=== PATIENT | male | born 1950 | race Caucasian/White ===

== ENCOUNTER 2022-11-29 12:36 | Emergency (ER) | payer MEDICARE, SELFPAY ==
[2022-11-29 12:45] VITALS: BP 172/79; PULSE 91; RESP 18; TEMP 37.1; O2SAT 98; BMI 27.3
--- NOTE | 2022-11-29 13:52 | CRLHL7_ITS ---
For Patients: As a result of the Cures Act, medical imaging exams and procedure reports are released immediately into your electronic medical record. You may view this report before your referring provider. If you have questions, please contact your health care provider. INDICATION: Headache. TECHNIQUE: CT head without contrast. COMPARISON: MRI, November 26, 2020. FINDINGS: CSF spaces: Mild parenchymal volume loss. Brain parenchyma and extra-axial spaces: Mild to moderate chronic white matter ischemic disease. The chris-white differentiation is normal. No sign of mass, hemorrhage, or midline shift. No extra-axial fluid collection. Skull base and calvarium: Moderate right maxillary sinus mucoperiosteal thickening. Otherwise, the visualized paranasal sinuses and mastoid air cells demonstrate no acute or significant findings. The visualized orbits are grossly unremarkable. No skull fractures. IMPRESSION: No acute intracranial abnormality. Moderate right maxillary sinus mucoperiosteal thickening which could suggest sinusitis in the appropriate clinical setting. Please note that all CT scans at this facility use dose modulation, iterative reconstruction, and/or weight-based dosing when appropriate to reduce radiation dose to as low as reasonably achievable. Dictated by Ayan Correa MD @ 11/29/2022 3:22:15 PM (Electronically Signed)
[2022-11-29] MEDS: 0.9 % SODIUM CHLORIDE 1000 ml 1,000 ML IV (14:45)
[2022-11-29] MEDS: KETOROLAC 30 MG/ML inj IVP (14:49)
[2022-11-29] MEDS: ONDANSETRON 2 MG/ML inj 4 MG IVP (14:50)
[2022-11-29] MEDS: diphenhydrAMINE 50 MG/ML inj 25 MG IVP (14:51)
[2022-11-29 15:14] LABS: Basophils Percent Auto 0.1 % (0.0-3.0); Eosinophils Percent Auto 0.3 % (0.0-7.0); Hematocrit 44.5 % (37.0-53.0); Hemoglobin* 14.8 gm/dL (13.5-17.5); Immature Granulocytes Pct Auto 0.3 %; Mean Corpuscular HGB Conc 33 gm/dL (32-36); Mean Corpuscular Hemoglobin 30 pg (26-34); Mean Corpuscular Volume 91 fL (80-100); Monocytes Percent Auto 9.1 % (0.0-11.0); Neutrophils Percent Auto 85.2 % (42.0-72.0); Platelet Count* 219 K/uL (140-440); RDW Coefficient of Variation % 13.1 % (11.5-15.5); Red Blood Count 4.91 m/uL (4.30-5.90); White Blood Count* 14.75 K/uL (4.50-11.00)
--- NOTE | 2022-11-29 15:23 | ED_ITS ---
HPI - Headache General Date Seen: 11/29/22 Chief Complaint: Headache/Migraine Stated Complaint: Headache Time Seen by Provider: 11/29/22 14:22 Source: patient and family Mode of arrival: ambulatory Limitations: no limitations History of Present Illness HPI Narrative: Patient is a 68 for old gentleman who presents here with a right-sided headache he describes the headache between behind his right eye it over his right mastoid region. He has a history of migraines but this is not all his migraines as they occur on the left side of his head, this is a bad headache, that is come on since he woke up today he did notice it slightly yesterday however, he denies any fevers chills, there is no history of any vomiting but he does feel nauseous, he took some nasal spray at home, which she normally takes for allergies. Presents here. For help with this. 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 He has had no discharge out of his ears when he has chronic tinnitus. MD elicited complaint: headache Pertinent past history: migraines Onset (ago): day(s) Onset description: gradually Location: right, facial, retro-orbital and parietal Severity: severe Quality & Timing: aching, throbbing and squeezing Exacerbating factors: none Relieving factors: nothing Associated symptoms: none Related Data Home Medications Medication Instructions Recorded Confirmed azelastine 137 mcg (0.1 %) nasal intranasal 11/29/22 spray aerosol fluticasone propionate 50 1 spray intranasal BID 11/29/22 11/29/22 mcg/actuation nasal spray,suspension Allergies Allergy/AdvReac Type Severity Reaction Status Date / Time Iodinated Contrast Media Allergy Intermediate Chest Pain Verified 11/29/22 12:45 Sulfa (Sulfonamide Allergy Intermediate Rash Verified 11/29/22 12:45 Antibiotics) Review of Systems Status of ROS: Reports: 10 or more systems reviewed and unremarkable except as noted in History and below [facility] Social History Smoking Status: Never smoker Do you use any of these nicotine containing products: None Second hand tobacco smoke exposure: Yes How often do you have a drink containing alcohol: 2-4 times a month How many standard drinks containing alcohol do you have on a typical day: 1 or 2 How often do you have six or more drinks on one occasion: Never AUDIT-C Alcohol total score: 2 Non-prescribed substance use: denies use service: No Exam Narrative: Exam Narrative: Patient is seen in room 3, he appears to be in no distress he has not photophobic, he is tender but not fluctuant tender behind his right mastoid, he has mild tenderness when palpated around the right ear, there is no fluctuance or redness noted, jaw opening is normal, tenderness over the right maxilla is notable. 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 Skin reveals no petechiae rashes. Const: Vital Signs, click to edit/add: Vital Signs - 24 hr 11/29/22 12:45 11/29/22 16:46 Temperature 98.7 F 100.8 F H Pulse Rate [Pulse Oximeter] 91 101 H Respiratory Rate 18 18 Blood Pressure [Le ft Upper Arm] 172/79 H 132/76 Pulse Oximetry 98 94 Oxygen Delivery Me thod Room Air Room Air Documenting provider has reviewed patient's vital signs: yes Course Course Hospital Course: Spoke to patient is white count is elevated at 14, CT shows right-sided sinusitis of the maxillary but also some opacification of the mastoid on the right side. This is all consistent with a right-sided disease, he was given Zosyn x1 we placed on Augmentin, I discussed the case with from ENT, he will see the patient tomorrow, in clinic and follow-up with him. Pain medication as directed, neurologically intact and stable, not vomiting I think can go home at this point. Signs symptoms of worsening discussed, to follow up with these occur. Vital Signs Vital signs: Initial Vital Signs Temperature 98.7 F 11/29/22 12:45 Temperature Source Temporal Artery Scan 11/29/22 12:45 Pulse Rate 91 11/29/22 12:45 Respiratory Rate 18 11/29/22 12:45 Blood Pressure 172/79 H 11/29/22 12:45 Blood Pressure Mean 110 11/29/22 12:45 Pulse Oximetry 98 11/29/22 12:45 Oxygen Delivery Method 11/29/22 12:45 Vital Signs Temperature 98.7 F 11/29/22 12:45 Pulse Rate 91 11/29/22 12:45 Respiratory Rate 18 11/29/22 12:45 Blood Pressure 172/79 H 11/29/22 12:45 Pulse Oximetry 98 11/29/22 12:45 Oxygen Delivery Method 11/29/22 12:45 Temperature 100.8 F H 11/29/22 16:46 Pulse Rate 101 H 11/29/22 16:46 Respiratory Rate 18 11/29/22 16:46 Blood Pressure 132/76 11/29/22 16:46 Pulse Oximetry 94 11/29/22 16:46 Oxygen Delivery Method 11/29/22 16:46 MDM - Headache MDM Narrative Medical decision making narrative: Life-threatening differential diagnosis include subarachnoid hemorrhage, meningitis, encephalitis, carbon monoxide poisoning, and intracerebral hemorrhage. Other differential diagnosis include but not limited to migraine, cluster headache, tension headache, [employer] vasculitis, mass lesion, temporal arteritis, click acute closed angle glaucoma, septal and trigeminal neuralgia, sinusitis, closed head injury, and stroke Medical Records Attestation: I reviewed the patient's medical records. Lab Data Attestation: I reviewed the patient's lab results. Labs: Lab Results 11/29/22 11/29/22 11/29/22 Range/Units 15:00 15:00 15:00 WBC 14.75 H (4.50-11.00) K/uL RBC 4.91 (4.30-5.90) m/uL Hgb 14.8 (13.5-17.5) gm/dL Hct 44.5 (37.0-53.0) % MCV 91 (80-100) fL MCH 30 (26-34) pg MCHC 33 (32-36) gm/dL RDW Coeff of Macie 13.1 (11.5-15.5) % Plt Count 219 (140-440) K/uL Neut % (Auto) 85.2 H (42.0-72.0) % Lymph % (Auto) 5.0 L (20-44) % Tripp % (Auto) 9.1 (0.0-11.0) % Eos % (Auto) 0.3 (0.0-7.0) % Baso % (Auto) 0.1 (0.0-3.0) % Neut # (Auto) 12.60 H (1.7-7.0) K/uL Lymph # (Auto) 0.70 L (0.90-2.90) K/uL Tripp # (Auto) 1.30 H (0.00-0.90) K/UL Eos # (Auto) 0.00 (0.00-0.50) K/uL Baso # (Auto) 0.00 (0.00-0.30) K/uL Sodium 137 (135-149) mmol/L Potassium 4.0 (3.6-5.1) mmol/L Chloride 103 (96-114) mmol/L Carbon Dioxide 27 (20-32) mmol/L BUN 13 (7-30) mg/dL Creatinine 0.7 (0.5-1.5) mg/dL Estimated Creat Clear 66.92 Estimated GFR 97 ml/min Glucose 115 (60-115) mg/dL Calcium 9.3 (8.4-10.6) mg/dL C-Reactive Protein 4.9 H (0.5-1.0) mg/dL Procalcitonin 0.06 (<0.50) ng/mL Imaging Data CT scan - head: Attestation: I have reviewed the pertinent imaging results. My impression: CT scan of the head was ordered before I saw the patient per triage. This shows a right maxillary fluid level, moderate, right sphenoid fluid levels, and some mild fluid in his right mastoid. I will await the radiology will read, but I think this is the what is causing his discomfort. Radiologist's impression: Patient: CHARISMA TOLEDO Facility:?[facility] Patient ID:?[id number] Site Patient ID:?[id number]. Site :?[id number] Study:?CT Head W/O-11/29/2022 2:16:39 PM Ordering Physician:?Caden Angeles Final Report: INDICATION: Headache. TECHNIQUE: CT head without contrast. COMPARISON: MRI, November 26, 2020. FINDINGS: CSF spaces: Mild parenchymal volume loss. Brain parenchyma and extra-axial spaces: Mild to moderate chronic white matter ischemic disease. The chris-white differentiation is normal. No sign of mass, hemorrhage, or midline shift. No extra-axial fluid collection. Skull base and calvarium: Moderate right maxillary sinus mucoperiosteal thickening. Otherwise, the visualized paranasal sinuses and mastoid air cells demonstrate no acute or significant findings. The visualized orbits are grossly unremarkable. No skull fractures. IMPRESSION: No acute intracranial abnormality. Moderate right maxillary sinus mucoperiosteal thickening which could suggest sinusitis in the appropriate clinical setting. Please note that all CT scans at this facility use dose modulation, iterative reconstruction, and/or weight-based dosing when appropriate to reduce radiation dose to as low as reasonably achievable. Dictated by Ayan Correa MD @ 11/29/2022 3:22:15 PM (Electronic Signature) Discharge Plan Discharge Clinical Impression: Mastoiditis of right side, Headache, Sinusitis Patient Disposition: Home w/ Parent or Adult Condition: Improved Instructions: Acute Headache (DC), Mastoiditis (ED) Additional Instructions: Home rest follow-up tomorrow morning at 10:00 a.m. at the [facility] with Dr. Adan Santos, take her antibiotics as directed 1st dose tonight, return if increasing fevers chills nausea vomiting or headaches. Prescriptions: No Action azelastine 137 mcg (0.1 %) aerosol,spray INTRANASAL Label Comments: [NO ORIGINAL SIG] fluticasone propionate 50 mcg/actuation spray,suspension 1 spray INTRANASAL BID Follow Up/Referrals: Provider,Not a Local [Primary Care Provider] - Devante Llamas MD [Staff Physician] - Stand Alone [facility]
[2022-11-29 15:28] LABS: Chloride* 103 mmol/L (96-114); Sodium* 137 mmol/L (135-149)
[2022-11-29 15:30] LABS: Creatinine* 0.7 mg/dL (0.5-1.5); Est. Creatinine Clearance* 66.92; Estimated Glomerular Filt Rate 97 ml/min
[2022-11-29] MEDS: METOCLOPRAMIDE HCL 10 MG in 0.9 % SODIUM CHLORIDE 100 ml 100 ML 306 MG IVPB (15:30)
[2022-11-29 15:31] LABS: Blood Urea Nitrogen* 13 mg/dL (7-30); Calcium* 9.3 mg/dL (8.4-10.6); Carbon Dioxide* 27 mmol/L (20-32); Glucose* 115 mg/dL (60-115)
[2022-11-29 15:33] LABS: Slide Review Reflex No
[2022-11-29 15:35] LABS: C Reactive Protein* 4.9 mg/dL (0.5-1.0)
[2022-11-29 15:48] LABS: Procalcitonin* 0.06 ng/mL (<0.50)
[2022-11-29] MEDS: PIPERACILLIN/TAZOBACTAM 3.375 GM in 0.9 % SODIUM CHLORIDE Mini-bag 100 ML IVPB (16:44)
[2022-11-29 16:46] VITALS: BP 132/76; PULSE 101; RESP 18; TEMP 38.2; O2SAT 94
[2022-11-29 17:04] VITALS: TEMP 38.2
[2022-11-29] MEDS: IBUPROFEN 200 MG TABLET 600 MG PO (17:04)
== END 2022-11-29 18:08 | disposition home or self-care (01) ==
PROVIDERS: Emergency Provider Family Medicine
DX: H70.91 Unspecified mastoiditis, right ear (principal); R51.9 Headache, unspecified; J32.9 Chronic sinusitis, unspecified
CPT/HCPCS: 36415; 70450; 80048; 84145; 85025; 86140; 87040; 96365; 96367; 96375; 99284; A9270; J1200; J1885; J2405; J2543; J2765; J7030

== ENCOUNTER 2022-11-30 10:40 | Outpatient (CLI) | payer MEDICARE, SELFPAY | END 2022-11-30 10:41 | disposition home or self-care (01) | PROVIDERS: Visit Provider Otolaryngology | DX: R51.9 Headache, unspecified (principal); I48.91 Unspecified atrial fibrillation | CPT/HCPCS: 83516; 86140; 86255 ==

== ENCOUNTER 2022-11-30 11:08 | Outpatient (CLI) | payer MEDICARE, SELFPAY ==
--- NOTE | 2022-11-30 11:21 | CRLHL7_ITS ---
For Patients: As a result of the Century Cures Act, medical imaging exams and procedure reports are released immediately into your electronic medical record. You may view this report before your referring provider. If you have questions, please contact your health care provider. Indication: Right otorrhea. Technique: CT of the temporal bones performed without IV contrast. Comparison: CT head 11/29/2022. Findings: RIGHT: Moderate 2 severe opacification of the external auditory canal near the tympanic membrane. No osseous erosion. There is interval development of moderate to severe opacification of the mastoid air cells and middle ear which has significantly progressed since prior CT 11/29/2022. The ossicles appear intact without erosion identified. Scutum appears sharp. The inner ear structures including the cochlea, semicircular canals, vestibule and vestibular aqueduct appear unremarkable. Osseous IAC is intact. The path of the facial nerve canal is preserved. LEFT: The external auditory canal is patent. The tympanic membrane is not thickened. The mesotympanum is well aerated. The scutum is sharp. Ossicles are intact without evidence of erosion. The epitympanum and mastoid air cells appear clear. The inner ear structures including the cochlea, semicircular canals, vestibule and vestibular aqueduct appear unremarkable. Osseous IAC is intact. The path of the facial nerve canal is preserved. OTHER: Moderate thickening of the right maxillary and ethmoid sinuses. There is chronic mucoperiosteal reaction. Orbits appear intact. Impression: Right temporal bone: 1. Interval development of moderate to severe external auditory canal, mastoid and middle ear opacification. No erosions. Findings could represent otomastoiditis and otitis externa. Correlate with otoscopic examination. Left temporal bone: 1. Unremarkable. Other: 1. Moderate paranasal sinus mucosal disease. Please note that all CT scans at this facility use dose modulation, iterative reconstruction, and/or weight-based dosing when appropriate to reduce radiation dose to as low as reasonably achievable. Dictated by Ko Angel MD @ 11/30/2022 2:14:08 PM (Electronically Signed)
== END 2022-11-30 11:09 | disposition home or self-care (01) ==
LOC: CT 11:08
PROVIDERS: Visit Provider Family Medicine
DX: H92.11 Otorrhea, right ear (principal); J32.9 Chronic sinusitis, unspecified
CPT/HCPCS: 70480

== ENCOUNTER 2022-11-30 18:20 | Inpatient (IN) | payer MEDICARE, SELFPAY ==
[2022-11-30 18:29] VITALS: BP 147/79; PULSE 131; RESP 20; TEMP 37.2; O2SAT 97; BMI 27.3
--- NOTE | 2022-11-30 18:43 | CRLHL7_ITS ---
For Patients: As a result of the Cures Act, medical imaging exams and procedure reports are released immediately into your electronic medical record. You may view this report before your referring provider. If you have questions, please contact your health care provider. INDICATION: Fever. TECHNIQUE: Chest 1 view. COMPARISON: None. FINDINGS: No focal consolidation, pleural effusion, or pneumothorax. Mild bibasilar atelectasis. Heart size upper limits of normal. Normal pulmonary vascularity. Tortuous aorta. Degenerative changes of the acromioclavicular joints. IMPRESSION: No acute cardiopulmonary findings. Dictated by Carol Markham MD @ 11/30/2022 7:55:28 PM (Electronically Signed)
[2022-11-30 18:50] LABS: Basophils Percent Auto 0.1 % (0.0-3.0); Eosinophils Percent Auto 0.6 % (0.0-7.0); Hematocrit 43.7 % (37.0-53.0); Hemoglobin* 14.5 gm/dL (13.5-17.5); Immature Granulocytes Pct Auto 0.2 %; Lymphocytes Percent Auto 8.5 % (20-44); Mean Corpuscular HGB Conc 33 gm/dL (32-36); Mean Corpuscular Hemoglobin 30 pg (26-34); Mean Corpuscular Volume 91 fL (80-100); Monocytes Percent Auto 8.6 % (0.0-11.0); Platelet Count* 225 K/uL (140-440); RDW Coefficient of Variation % 13.3 % (11.5-15.5); Red Blood Count 4.79 m/uL (4.30-5.90)
--- NOTE | 2022-11-30 18:50 | ED.GENADULT ---
HPI - General Adult General Date Seen: 11/30/22 Chief complaint: Ear/Nose/Throat Problem Stated complaint: Nausea Dehydration Time Seen by Provider: 11/30/22 18:21 Source: patient Mode of arrival: ambulatory Limitations: no limitations History of Present Illness HPI narrative: Patient is a 72-year-old male who has been having sinus symptoms for few weeks. He said it is not unusual for him to have sinus infections and he often has to do a couple of rounds of antibiotics. He was here yesterday and had a headache at that time, had a CT of the which did show sinusitis. He was started on antibiotics and followed up with ENT today with a concern about possible mastoiditis. His labs yesterday showed a mildly elevated white blood cell count at 14,000, CRP was up as well. In clinic today, his white blood cell count was slightly worse, CRP was slightly worse, sed rate was elevated at 48. He had a CT of the auditory canals today after leaving clinic, this is read by Radiology as follows: Impression: Right temporal bone: 1. Interval development of moderate to severe external auditory canal, mastoid and middle ear opacification. No erosions. Findings could represent otomastoiditis and otitis externa. Correlate with otoscopic examination. Left temporal bone: 1. Unremarkable. Other: 1. Moderate paranasal sinus mucosal disease. Please note that all CT scans at this facility use dose modulation, iterative reconstruction, and/or weight-based dosing when appropriate to reduce radiation dose to as low as reasonably achievable. As the afternoon has gone on, he says he has developed significant nausea and vomiting, he cannot keep anything down. He has had a couple of doses of the Augmentin. He has had Augmentin before without any difficulties. He says he has not been able to check his temperature at home but he feels like he has maybe had a fever. He says he has been shaky but does not think that is due to shaking chills. He has not had any diarrhea. He has not had any shortness of breath or cough. He is taking some prednisone that was prescribed in clinic. He does not have a history of diabetes or any other immunosuppressive medical history. Related Data Home Medications Medication Instructions Recorded Confirmed azelastine 137 mcg (0.1 %) nasal intranasal 11/29/22 11/30/22 spray aerosol fluticasone propionate 50 1 spray intranasal BID 11/29/22 11/30/22 mcg/actuation nasal spray,suspension Previous Rx's Medication Instructions Recorded amoxicillin 875 mg-potassium 1 tab PO BID 10 days #20 tabs 11/30/22 clavulanate 125 mg tablet ciprofloxacin 0.3 %-dexamethasone 6 drp otic (ear) QID 7 days #7.5 mL 11/30/22 0.1 % ear drops,suspension (Ciprodex) prednisone 10 mg tablet 20 mg PO BID 7 days #28 tabs 11/30/22 Allergies Allergy/AdvReac Type Severity Reaction Status Date / Time Iodinated Contrast Media Allergy Intermediate Chest Pain Verified 11/30/22 10:21 Sulfa (Sulfonamide Allergy Intermediate Rash Verified 11/30/22 10:21 Antibiotics) Review of Systems Status of ROS: Reports: 10 or more systems reviewed and unremarkable except as noted in History and below [facility] Social History Smoking Status: Never smoker Do you use any of these nicotine containing products: None Second hand tobacco smoke exposure: Yes How often do you have a drink containing alcohol: 2-4 times a month How many standard drinks containing alcohol do you have on a typical day: 1 or 2 How often do you have six or more drinks on one occasion: Never AUDIT-C Alcohol total score: 2 Non-prescribed substance use: denies use service: No Exam Narrative: Exam Narrative: Vital signs as noted above. In general, an alert, nontoxic male, looks fatigued. Head: Normocephalic, atraumatic. Eyes: Pupils are equal reactive. Extraocular movements are full. Conjunctivae are normal. ENT: Mucous membranes are moist. Throat is normal. He has a Kleenex in the right ear due to ongoing drainage. Drainage is serosanguineous. He does not have any significant erythema or tenderness behind the pinna over the mastoid air cells, pin itself seems mildly erythematous but without significant swelling or tenderness. Neck: Supple without lymphadenopathy. No stridor. Heart: Regular rate and rhythm with some ectopy, no significant murmur. Lungs: Clear bilaterally. No increased work of breathing, crackles or wheezes. Abdomen: Soft and nontender. No organomegaly. Extremities: Well perfused. No edema. No calf tenderness. Pulses intact. Neurologic: Patient is alert and oriented to person and place. Speech is fluent. Face is symmetric. Moves all extremities equally. Affect: Normal. Skin: Warm and dry. Well perfused. Const: Vital Signs, click to edit/add: Vital Signs - 24 hr 11/30/22 18:29 11/30/22 20:05 11/30/22 20:00 Temperature 98.9 F Pulse Rate [Pulse Oximeter] 131 H 68 Respiratory Rate 20 18 Blood Pressure [Le ft Upper Arm] 147/79 H 148/79 H 128/78 Pulse Oximetry 97 98 Oxygen Delivery Me thod Room Air Room Air Documenting provider has reviewed patient's vital signs: yes Course Course Hospital Course: Plan at this time is to place an IV, give some fluids and Zofran. Denies the need for anything for pain right now. I am going to repeat some labs and see how those look. He is markedly tachycardic, blood pressure is reasonable. He is afebrile here, however with tachycardia, vomiting, elevated white blood cell count and inflammatory markers, failure to improve on antibiotics, my suspicion is that he will require admission to the hospital for at a minimum management of symptoms, possible developing sepsis. Reevaluation(s) Reevaluation #1: On my initial evaluation, patient continued to be tachycardic although I see an repeat vital signs he had a pulse of 68, so perhaps he converted spontaneously from rapid atrial fibrillation. EKG did show atrial fibrillation with a rapid ventricular rate of 131 beats per minute. He was otherwise hemodynamically stable with blood pressure in the 140s. He did develop some headache here and continued to have nausea after the Zofran, so I gave him Reglan and Toradol. I did blood cultures as well as a culture from the fluid from his right ear. His labs are notable for ongoing elevation of his white blood cell count 14. His CRP is more elevated at 19. A repeat procalcitonin remains reassuring at 0.13. Urinalysis shows 2+ ketones, 1+ protein, otherwise unremarkable. COVID is negative. I have reviewed his records including imaging from earlier today. Overall, labs are relatively reassuring from the standpoint of sepsis although his white blood cell count is elevated. Nonetheless, he does not shows considerable improvement at home to his antibiotics, labs are somewhat stagnant, and from a symptomatic standpoint he is are acutely worsening. I do think he would benefit from admission for IV antibiotics and symptomatic control. In addition, at the time of my admission he was in rapid AFib, which is a new diagnosis for him. This may have resolved spontaneously however. I discussed his care with Dr. Vazquez in as well. He recommended spectrum antibiotics as well as steroids, patient was started on prednisone earlier today, and is available for further consultation as needed. Vital Signs Vital signs: Initial Vital Signs Temperature 98.9 F 11/30/22 18:29 Temperature Source Temporal Artery Scan 11/30/22 18:29 Pulse Rate 131 H 11/30/22 18:29 Pulse Rhythm 11/30/22 18:29 Respiratory Rate 20 11/30/22 18:29 Blood Pressure 147/79 H 11/30/22 18:29 Blood Pressure Mean 101 11/30/22 18:29 Blood Pressure Position Sitting 11/30/22 18:29 Pulse Oximetry 97 11/30/22 18:29 Oxygen Delivery Method 11/30/22 18:29 Vital Signs Temperature 98.9 F 11/30/22 18:29 Pulse Rate 131 H 11/30/22 18:29 Respiratory Rate 20 11/30/22 18:29 Blood Pressure 147/79 H 11/30/22 18:29 Pulse Oximetry 97 11/30/22 18:29 Oxygen Delivery Method 11/30/22 18:29 Temperature 98.9 F 11/30/22 18:29 Pulse Rate 68 11/30/22 20:00 Respiratory Rate 18 11/30/22 20:00 Blood Pressure 148/79 H 11/30/22 20:05 Pulse Oximetry 98 11/30/22 20:00 Oxygen Delivery Method 11/30/22 20:00 Medical Decision Making Lab Data Labs: Lab Results 11/30/22 11/30/22 11/30/22 Range/Units 18:33 18:33 18:33 WBC 14.00 H (4.50-11.00) K/uL RBC 4.79 (4.30-5.90) m/uL Hgb 14.5 (13.5-17.5) gm/dL Hct 43.7 (37.0-53.0) % MCV 91 (80-100) fL MCH 30 (26-34) pg MCHC 33 (32-36) gm/dL RDW Coeff of Macie 13.3 (11.5-15.5) % Plt Count 225 (140-440) K/uL Neut % (Auto) 82.0 H (42.0-72.0) % Lymph % (Auto) 8.5 L (20-44) % [place] % (Auto) 8.6 (0.0-11.0) % Eos % (Auto) 0.6 (0.0-7.0) % Baso % (Auto) 0.1 (0.0-3.0) % Neut # (Auto) 11.50 H (1.7-7.0) K/uL Lymph # (Auto) 1.20 (0.90-2.90) K/uL [place] # (Auto) 1.20 H (0.00-0.90) K/UL Eos # (Auto) 0.10 (0.00-0.50) K/uL Baso # (Auto) 0.00 (0.00-0.30) K/uL Lactate 1.2 (0.5-1.9) mmol/L Total Bilirubin 0.7 (0.1-1.5) mg/dL Direct Bilirubin 0.1 (0.0-0.5) mg/dL AST 41 H (12-35) U/L ALT 25 (4-50) U/L Alkaline Phosphatase 78 (40-150) U/L C-Reactive Protein 19.0 H (0.5-1.0) mg/dL Total Protein 7.3 (6.0-8.3) g/dL Albumin 4.1 (3.3-5.0) g/dL Procalcitonin 0.13 (<0.50) ng/mL Urine Color (Yellow) Urine Appearance (Clear) Urine pH (5.0-8.5) Ur Specific [place] (1.000-1.030) Urine Protein (Negative) Urine Glucose (UA) (Negative) Urine Ketones (Negative) Urine Blood (Negative) Urine Nitrite (Negative) Urine Bilirubin (Negative) Urine Urobilinogen (0.2-1.0) Ur Leukocyte Esterase (Negative) Urine RBC (0-2) Urine WBC (0-5) Ur Squamous Epith Cells (None-Few) Urine Bacteria (None) SARS-CoV-2 (PCR) (Negative) 03/15/23 03/15/23 Range/Units 18:54 19:44 WBC (4.50-11.00) K/uL RBC (4.30-5.90) m/uL Hgb (13.5-17.5) gm/dL Hct (37.0-53.0) % MCV (80-100) fL MCH (26-34) pg MCHC (32-36) gm/dL RDW Coeff of Macie (11.5-15.5) % Plt Count (140-440) K/uL Neut % (Auto) (42.0-72.0) % Lymph % (Auto) (20-44) % [place] % (Auto) (0.0-11.0) % Eos % (Auto) (0.0-7.0) % Baso % (Auto) (0.0-3.0) % Neut # (Auto) (1.7-7.0) K/uL Lymph # (Auto) (0.90-2.90) K/uL [place] # (Auto) (0.00-0.90) K/UL Eos # (Auto) (0.00-0.50) K/uL Baso # (Auto) (0.00-0.30) K/uL Lactate (0.5-1.9) mmol/L Total Bilirubin (0.1-1.5) mg/dL Direct Bilirubin (0.0-0.5) mg/dL AST (12-35) U/L ALT (4-50) U/L Alkaline Phosphatase (40-150) U/L C-Reactive Protein (0.5-1.0) mg/dL Total Protein (6.0-8.3) g/dL Albumin (3.3-5.0) g/dL Procalcitonin (<0.50) ng/mL Urine Color Dark yellow (Yellow) Urine Appearance Clear (Clear) Urine pH 6.0 (5.0-8.5) Ur Specific [place] 1.025 (1.000-1.030) Urine Protein 1+ A (Negative) Urine Glucose (UA) Negative (Negative) Urine Ketones 2+ A (Negative) Urine Blood Negative (Negative) Urine Nitrite Negative (Negative) Urine Bilirubin Negative (Negative) Urine Urobilinogen 0.2 (0.2-1.0) Ur Leukocyte Esterase Negative (Negative) Urine RBC 0-2 (0-2) Urine WBC 0-2 (0-5) Ur Squamous Epith Cells Few (None-Few) Urine Bacteria None (None) SARS-CoV-2 (PCR) Negative SARS-CoV-2 (Negative) Discharge Plan Discharge Patient Disposition: Admitted As Inpatient
[2022-11-30 18:56] LABS: Slide Review Reflex No
[2022-11-30] MEDS: ONDANSETRON 2 MG/ML inj 4 MG IVP (19:15)
[2022-11-30] MEDS: 0.9 % SODIUM CHLORIDE 1000 ml 1,000 ML IV (19:15)
[2022-11-30 19:18] LABS: Lactate* 1.2 mmol/L (0.5-1.9)
[2022-11-30 19:21] LABS: Albumin* 4.1 g/dL (3.3-5.0)
[2022-11-30 19:25] LABS: Alanine Aminotransferase* 25 U/L (4-50); Alkaline Phosphatase* 78 U/L (40-150); Aspartate Amino Transferase* 41 U/L (12-35); Bilirubin Direct* 0.1 mg/dL (0.0-0.5); Bilirubin Total* 0.7 mg/dL (0.1-1.5); Total Protein* 7.3 g/dL (6.0-8.3)
[2022-11-30 19:52] LABS: Appearance Urine Clear (Clear); Bilirubin Urine Negative (Negative); Blood Urine Negative (Negative); Color Urine Dark yellow (Yellow); Glucose Urine Negative (Negative); Ketones Urine 2+ (Negative); Leukocyte Esterase Urine Negative (Negative); Nitrite Urine Negative (Negative); Protein Urine 1+ (Negative); Specific Gravity Urine 1.025 (1.000-1.030); Urobilinogen Urine 0.2 (0.2-1.0)
[2022-11-30 19:58] LABS: SARS PCR* Negative SARS-CoV-2 (Negative)
[2022-11-30 20:00] VITALS: BP 128/78; PULSE 68; RESP 18; O2SAT 98
[2022-11-30] MEDS: METOCLOPRAMIDE HCL 10 MG in 0.9 % SODIUM CHLORIDE 100 ml 100 ML 306 MG IVPB (20:02)
[2022-11-30] MEDS: KETOROLAC 15 MG/ML inj IVP (20:02)
[2022-11-30 20:05] VITALS: BP 148/79
[2022-11-30 20:05] LABS: RBC Urine 0-2 (0-2); Squamous Epithelial Cell Urine Few (None-Few); WBC Urine 0-2 (0-5)
[2022-11-30 20:13] VITALS: PULSE 85
[2022-11-30] MEDS: PIPERACILLIN/TAZOBACTAM 3.375 GM in 0.9 % SODIUM CHLORIDE Mini-bag 100 ML IVPB (20:33)
[2022-11-30 20:38] LABS: Procalcitonin* 0.13 ng/mL (<0.50)
[2022-11-30 21:07] VITALS: RESP 16; RESP 18; TEMP 37.2; O2SAT 94; O2SAT 98; BMI 28.2
[2022-11-30] MEDS: SODIUM CHLORIDE 0.9 % (FLUSH) 10 ML SYRINGE 5 ML IVF (21:55)
[2022-11-30] MEDS: 0.9 % SODIUM CHLORIDE 1000 ml 1,000 ML 100 ML IV (21:55)
[2022-11-30 23:00] VITALS: RESP 14; RESP 16; TEMP 37.1; O2SAT 96
--- NOTE | 2022-11-30 23:34 | PM.IMHP1 ---
Hospitalist- H&P: HPI History of Present Illness Date Seen: 12/01/22 Chief complaint: Nausea Dehydration Narrative: Kapil Huizar is a 72 year old male with past medical history of migraine headaches, Astrid presenting for evaluation of headache, dizziness, nausea. The patient was seen in ENT clinic earlier in the day. He was diagnosed with acute sinusitis vs otitis media. He had CT right temporal bone showing Interval development of moderate to severe external auditory canal, mastoid and middle ear opacification. No erosions. Findings could represent otomastoiditis and otitis externa. Correlate with otoscopic examination. The initial plan was to start antibiotic therapy and prednisone. He continued to have a headache and was referred to ED. CXR showed no acute findings. Per patient he had a fever yesterday otherwise denies chest pain, palpitations, sob. He continues to have a headache. In the ED the patient was noted to be in new onset atrial fibrillation. He was started on IVF and zosyn and admitted for further evaluation. CT Impression: Right temporal bone: 1. Interval development of moderate to severe external auditory canal, mastoid and middle ear opacification. No erosions. Findings could represent otomastoiditis and otitis externa. Correlate with otoscopic examination. Left temporal bone: 1. Unremarkable. Other: 1. Moderate paranasal sinus mucosal disease. cxr o acute cardiopulmonary findings. Medical Hx 11/10/2021 ASTRID 10/27/2021 AHI-12 03/18/2010 Thoracic outlet syndrome 03/18/2010 Other acne 03/18/2010 LBP (low back pain) 02/28/2007 Personal history of colonic polyps 02/28/2007 Impotence of organic origin Date Unknown ALLERGIC RHINITIS CAUSE UNSPECIFIED Date Unknown Migraine, unspecified, without mention of intractable migraine without mention of status migrainosus Date Unknown Other and unspecified hyperlipidemia Date Unknown Spondylosis, cervical Date Unknown Unspecified sinusitis (chronic) Surgical History? 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 2 items Smoking Status Never Smokeless Tobacco Status Never Review of Systems Status of ROS: Reports: 10 or more systems reviewed and unremarkable except as noted in History and below PFSH PFSH Social History Smoking Status: Never smoker Do you use any of these nicotine containing products: None Second hand tobacco smoke exposure: Yes (Parents smoked) How often do you have a drink containing alcohol: 2-4 times a month Alcohol type: beer How many standard drinks containing alcohol do you have on a typical day: 1 or 2 How often do you have six or more drinks on one occasion: Never AUDIT-C Alcohol total score: 2 Non-prescribed substance use: denies use Caffeine: Yes (coffee) service: No Meds Home Medications and Allergies Home Medications Medication Instructions Recorded Confirmed Type azelastine 137 mcg (0.1 %) nasal 2 spray intranasal Q12H 11/29/22 12/01/22 History spray aerosol fluticasone propionate 50 1 spray intranasal BID 11/29/22 12/01/22 History mcg/actuation nasal spray,suspension cetirizine 10 mg tablet (All Day 10 mg PO DAILY PRN 12/01/22 12/01/22 History Allergy (cetirizine)) cholecalciferol (vitamin D3) 25 25 mcg PO DAILY 12/01/22 12/01/22 History mcg (1,000 unit) capsule (Vitamin D3) Allergies Allergy/AdvReac Type Severity Reaction Status Date / Time Iodinated Contrast Media Allergy Intermediate Chest Pain Verified 11/30/22 10:21 Sulfa (Sulfonamide Allergy Intermediate Rash Verified 11/30/22 10:21 Antibiotics) Exam Narrative: Exam Narrative: Gen: NAD HEENT: right ear canal difficult to visualize due to wax, ncat eomi Neck: Supple CV: IRIR normal s1 s2 LCTAB Abd: soft, nt,nd Neuro: AOX3: Nonfocal screening exam; cn intact MSK: age appropriate muscle mass Skin: warm, dry, no rash on face Const: Vital Signs, click to edit/add: Vital Signs - 24 hr 11/30/22 18:29 11/30/22 20:05 11/30/22 20:00 Temperature 98.9 F Pulse Rate [Pulse Oximeter] 131 H 68 Respiratory Rate 20 18 Blood Pressure [Le ft Upper Arm] 147/79 H 148/79 H 128/78 Pulse Oximetry 97 98 Oxygen Delivery Me thod Room Air Room Air 11/30/22 21:07 11/30/22 21:07 Temperature 98.9 F Pulse Rate [Pulse Oximeter] Respiratory Rate 18 16 Blood Pressure [Le ft Upper Arm] Pulse Oximetry 98 94 Oxygen Delivery Me thod Room Air Room Air Hospitalist - H&P: Result Labs Labs: Short CBC 11/30/22 Range/Units 18:33 WBC 14.00 H (4.50-11.00) K/uL Hgb 14.5 (13.5-17.5) gm/dL Hct 43.7 (37.0-53.0) % Plt Count 225 (140-440) K/uL Liver Function 11/30/22 Range/Units 18:33 Total Bilirubin 0.7 (0.1-1.5) mg/dL Direct Bilirubin 0.1 (0.0-0.5) mg/dL AST 41 H (12-35) U/L ALT 25 (4-50) U/L Alkaline Phosphatase 78 (40-150) U/L Albumin 4.1 (3.3-5.0) g/dL Urine 11/30/22 Range/Units 19:44 Urine Color Dark yellow (Yellow) Urine Appearance Clear (Clear) Urine pH 6.0 (5.0-8.5) Ur Specific [place] 1.025 (1.000-1.030) Urine Protein 1+ A (Negative) Urine Glucose (UA) Negative (Negative) Assessment and Plan Assessment and plan (1) Mastoiditis of right side: Problem comment: Rule out Farias's granulomatosis. Most likely an infection only. Treated with UNASYN IV abx for infection and corticosteroids Status: Acute (2) Headache: Problem comment: 12/01/2022, resolved. Status: Acute (3) Sinusitis: Problem comment: Rule out Farias's granulomatosis. Most likely an infection only. Treated with UNASYN IV abx for infection and corticosteroids Status: Acute (4) Atrial fibrillation: Status: Acute Plan Kapil Huizar is a 72 year old male with past medical history of migraine headaches, Astrid presenting for evaluation of headache, dizziness, nausea. The patient was seen in ENT clinic earlier in the day. He was diagnosed with acute sinusitis vs otitis media. He had CT right temporal bone showing Interval development of moderate to severe external auditory canal, mastoid and middle ear opacification. No erosions. Findings could represent otomastoiditis and otitis externa. Correlate with otoscopic examination. The initial plan was to start antibiotic therapy and prednisone. He continued to have a headache and was referred to ED. CXR showed no acute findings. Per patient he had a fever yesterday otherwise denies chest pain, palpitations, sob. He continues to have a headache. In the ED the patient was noted to be in new onset atrial fibrillation. He was started on IVF and zosyn and admitted for further evaluation. 1. Acute sinusitis+otomastoiditis 2. New onset Afib; afib w/rvr resolved 3. Hx of ASTRID 4. HTN Plan -admit to inpatient -tele -IVF -switch antibiotics to unasyn -prednisone -Ent follow up -Echo -start eliquis -currently rate controlled Code-Full DVT ppx-eliquis initiated
[2022-12-01] VITALS (9 sets, daily range): BP systolic 112–158; BP diastolic 69–88; PULSE 75–84; RESP 14–20; TEMP 36.7–37; O2SAT 90–98
[2022-12-01] MEDS: APIXABAN 5 MG TABLET PO ×3 (03:02→20:36)
[2022-12-01] MEDS: predniSONE 20 MG TABLET 40 MG PO (03:02)
[2022-12-01] MEDS: AMPICILLIN/SULBACTAM 3 GM in 0.9 % SODIUM CHLORIDE Mini-bag 100 ML IVPB ×4 (03:05→20:34)
[2022-12-01 06:19] LABS: Basophils Percent Auto 0.1 % (0.0-3.0); Eosinophils Percent Auto 0.6 % (0.0-7.0); Hematocrit 41.4 % (37.0-53.0); Hemoglobin* 13.8 gm/dL (13.5-17.5); Immature Granulocytes Pct Auto 1.4 %; Lymphocytes Percent Auto 6.5 % (20-44); Mean Corpuscular HGB Conc 33 gm/dL (32-36); Mean Corpuscular Hemoglobin 30 pg (26-34); Mean Corpuscular Volume 91 fL (80-100); Monocytes Percent Auto 2.3 % (0.0-11.0); Neutrophils Percent Auto 89.1 % (42.0-72.0); Platelet Count* 213 K/uL (140-440); RDW Coefficient of Variation % 13.4 % (11.5-15.5); Red Blood Count 4.54 m/uL (4.30-5.90); White Blood Count* 11.06 K/uL (4.50-11.00)
[2022-12-01 06:24] LABS: Slide Review Reflex No
[2022-12-01 06:35] LABS: Chloride* 106 mmol/L (96-114)
[2022-12-01 06:36] LABS: Potassium* 4.2 mmol/L (3.6-5.1); Sodium* 137 mmol/L (135-149)
[2022-12-01 06:38] LABS: Creatinine* 0.7 mg/dL (0.5-1.5); Est. Creatinine Clearance* 66.92; Estimated Glomerular Filt Rate 97 ml/min
[2022-12-01 06:39] LABS: Blood Urea Nitrogen* 14 mg/dL (7-30); Calcium* 8.7 mg/dL (8.4-10.6); Carbon Dioxide* 24 mmol/L (20-32); Glucose* 179 mg/dL (60-115)
--- NOTE | 2022-12-01 07:43 | PC.NURSE ---
276? Pt is alert and oriented x 3. Pt denies SOB, Chest pain, N/V and SOB. Pt right ear is nontender, red and has pink/yellow?drainage. Pt reports 3/10 pain, pain managed with warm wash cloth to right ear. Pt is SBA/IND and tolerating a regular diet. Pt slept intermittently throughout night. ?
[2022-12-01] MEDS: 0.9 % SODIUM CHLORIDE 1000 ml 1,000 ML 100 ML IV ×2 (07:55→19:02)
[2022-12-01] MEDS: ACETAMINOPHEN 325 MG TABLET 650 MG PO ×3 (09:12→22:52)
[2022-12-01] MEDS: SODIUM CHLORIDE 0.9 % (FLUSH) 10 ML SYRINGE 5 ML IVF ×2 (09:32→20:36)
--- NOTE | 2022-12-01 15:48 | P.ENTPN_ITS ---
ENT-PN: Subj Subjective Time Seen by Provider: 12:01 Date Seen: 12/01/22 Progress Note: A&P Assessment and plan (1) Mastoiditis of right side: Status: Acute (2) Headache: Status: Acute (3) Sinusitis: Status: Acute Plan Otomastoiditis in the presence of sinusitis with elevated CRP and sed rate and nasal crusting. This constellation of signs and symptoms suggest granulomatosis with polyangiitis (Nasima's disease). However this may have just been a bad ear infection. He is markedly improved but is unclear if that is from steroids or the antibiotic coverage. We will await the depend doing autoimmune testing. If this is indeed polyangiitis he will need a referral to [place] and I will be happy to help with that. Discussed with patient and also with hospitalist Time Spent With Patient Total time spent: 30 Exam Narrative: Exam Narrative: Overall feeling much better. He states 80% better. Intranasal crusting is now gone. Right ear still is erythematous and landmarks are not visible. There is still some granulation tissue anterior superior drainage has diminished however Const: Vital Signs, click to edit/add: Vital Signs - 24 hr 11/30/22 18:29 11/30/22 20:05 11/30/22 20:00 Temperature 98.9 F Pulse Rate Pulse Rate [Pulse Oximeter] 131 H 68 Respiratory Rate 20 18 Blood Pressure [Le ft Upper Arm] 147/79 H 148/79 H 128/78 Blood Pressure [Ri ght Arm] Pulse Oximetry 97 98 Oxygen Delivery Me thod Room Air Room Air 11/30/22 21:07 11/30/22 21:07 11/30/22 20:13 Temperature 98.9 F Pulse Rate 85 Pulse Rate [Pulse Oximeter] Respiratory Rate 18 16 Blood Pressure [Le ft Upper Arm] Blood Pressure [Ri ght Arm] Pulse Oximetry 98 94 Oxygen Delivery Me thod Room Air Room Air 11/30/22 23:00 11/30/22 23:00 12/01/22 03:09 Temperature 98.8 F 98.6 F Pulse Rate Pulse Rate [Pulse Oximeter] Respiratory Rate 16 14 14 Blood Pressure [Le ft Upper Arm] Blood Pressure [Ri ght Arm] 126/69 Pulse Oximetry 96 98 Oxygen Delivery Me thod Room Air Room Air 12/01/22 07:00 12/01/22 07:35 12/01/22 08:30 Temperature 98.2 F Pulse Rate 79 Pulse Rate [Pulse Oximeter] 83 Respiratory Rate 14 14 Blood Pressure [Le ft Upper Arm] Blood Pressure [Ri ght Arm] 112/82 Pulse Oximetry 94 Oxygen Delivery Me thod Room Air 12/01/22 12:00 Temperature 98.1 F Pulse Rate Pulse Rate [Pulse Oximeter] 79 Respiratory Rate 16 Blood Pressure [Le ft Upper Arm] Blood Pressure [Ri ght Arm] 133/86 Pulse Oximetry 96 Oxygen Delivery Me thod Room Air ENT-PN: Obj Labs Labs: Laboratory Results - last 24 hr 11/30/22 11/30/22 11/30/22 18:33 18:33 18:33 WBC 14.00 H RBC 4.79 Hgb 14.5 Hct 43.7 MCV 91 MCH 30 MCHC 33 RDW Coeff of Macie 13.3 Plt Count 225 Neut % (Auto) 82.0 H Lymph % (Auto) 8.5 L [place] % (Auto) 8.6 Eos % (Auto) 0.6 Baso % (Auto) 0.1 Neut # (Auto) 11.50 H Lymph # (Auto) 1.20 [place] # (Auto) 1.20 H Eos # (Auto) 0.10 Baso # (Auto) 0.00 Sodium Potassium Chloride Carbon Dioxide BUN Creatinine Estimated Creat Clear Estimated GFR Glucose Lactate 1.2 Calcium Total Bilirubin 0.7 Direct Bilirubin 0.1 AST 41 H ALT 25 Alkaline Phosphatase 78 C-Reactive Protein 19.0 H Total Protein 7.3 Albumin 4.1 Procalcitonin 0.13 TSH Urine Color Urine Appearance Urine pH Ur Specific [place] Urine Protein Urine Glucose (UA) Urine Ketones Urine Blood Urine Nitrite Urine Bilirubin Urine Urobilinogen Ur Leukocyte Esterase Urine RBC Urine WBC Ur Squamous Epith Cells Urine Bacteria SARS-CoV-2 (PCR) 11/30/22 11/30/22 12/01/22 18:54 19:44 05:54 WBC 11.06 H RBC 4.54 Hgb 13.8 Hct 41.4 MCV 91 MCH 30 MCHC 33 RDW Coeff of Macie 13.4 Plt Count 213 Neut % (Auto) 89.1 H Lymph % (Auto) 6.5 L [place] % (Auto) 2.3 Eos % (Auto) 0.6 Baso % (Auto) 0.1 Neut # (Auto) 9.90 H Lymph # (Auto) 0.70 L [place] # (Auto) 0.30 Eos # (Auto) 0.10 Baso # (Auto) 0.00 Sodium Potassium Chloride Carbon Dioxide BUN Creatinine Estimated Creat Clear Estimated GFR Glucose Lactate Calcium Total Bilirubin Direct Bilirubin AST ALT Alkaline Phosphatase C-Reactive Protein Total Protein Albumin Procalcitonin TSH Urine Color Dark yellow Urine Appearance Clear Urine pH 6.0 Ur Specific [place] 1.025 Urine Protein 1+ A Urine Glucose (UA) Negative Urine Ketones 2+ A Urine Blood Negative Urine Nitrite Negative Urine Bilirubin Negative Urine Urobilinogen 0.2 Ur Leukocyte Esterase Negative Urine RBC 0-2 Urine WBC 0-2 Ur Squamous Epith Cells Few Urine Bacteria None SARS-CoV-2 (PCR) Negative SARS-CoV-2 12/01/22 12/01/22 05:54 05:54 WBC RBC Hgb Hct MCV MCH MCHC RDW Coeff of [place] Plt Count Neut % (Auto) Lymph % (Auto) [place] % (Auto) Eos % (Auto) Baso % (Auto) Neut # (Auto) Lymph # (Auto) [place] # (Auto) Eos # (Auto) Baso # (Auto) Sodium 137 Potassium 4.2 Chloride 106 Carbon Dioxide 24 BUN 14 Creatinine 0.7 Estimated Creat Clear 66.92 Estimated GFR 97 Glucose 179 H Lactate Calcium 8.7 Total Bilirubin Direct Bilirubin AST ALT Alkaline Phosphatase C-Reactive Protein Total Protein Albumin Procalcitonin TSH 1.170 Urine Color Urine Appearance Urine pH Ur Specific [place] Urine Protein Urine Glucose (UA) Urine Ketones Urine Blood Urine Nitrite Urine Bilirubin Urine Urobilinogen Ur Leukocyte Esterase Urine RBC Urine WBC Ur Squamous Epith Cells Urine Bacteria SARS-CoV-2 (PCR)
--- NOTE | 2022-12-01 16:56 | PM.IMPN1 ---
Progress Note: A&P Assessment and plan (1) Mastoiditis of right side: Problem details: Rule out Farias's granulomatosis. Most likely an infection only. Treated with UNASYN IV abx for infection and corticosteroids Status: Acute (2) Headache: Problem details: 12/01/2022, resolved. Status: Acute (3) Sinusitis: Problem details: Rule out Farias's granulomatosis. Most likely an infection only. Treated with UNASYN IV abx for infection and corticosteroids Status: Acute Plan 1. Continue with current intervention efforts 2. If he continues to improve may consider discharge tomorrow on oral steroids and Augmentin 3. Later in the day I examine the patient again with Dr. Llamas, ENT, who concurs with the above stated plans and recommendations. 4. Reviewed the same with the patient his who are agreeable. Time Spent With Patient Total time spent: 40 minutes Subjective Time Seen by Provider: 10:00 Date Seen: 12/01/22 Interval history: Hospital day 2. 80% improved compared to yesterday. Still having drainage from the right ear. Nasal drainage much improved. Has lost much of his hearing on the right ear. Denies tinnitus. Exam Narrative: Exam Narrative: Afebrile. Appears comfortable. Eating and drinking comfortably. Virtually absent hearing on the right, hearing intact on the left. Injected, boggy right tympanic membrane with clear discharge. Left tympanic membrane is normal. No nasal discharge. Mucosa actually appears fairly normal at this time. Oropharynx is benign. Adenopathy in the right side of his neck. Lungs clear to auscultation. Heart tones with regular rhythm. Independent transfer, station, gait. Const: Vital Signs, click to edit/add: Vital Signs - 24 hr 11/30/22 18:29 11/30/22 20:05 11/30/22 20:00 Temperature 98.9 F Pulse Rate Pulse Rate [Pulse Oximeter] 131 H 68 Respiratory Rate 20 18 Blood Pressure [Le ft Upper Arm] 147/79 H 148/79 H 128/78 Blood Pressure [Ri ght Arm] Pulse Oximetry 97 98 Oxygen Delivery Me thod Room Air Room Air 11/30/22 21:07 11/30/22 21:07 11/30/22 20:13 Temperature 98.9 F Pulse Rate 85 Pulse Rate [Pulse Oximeter] Respiratory Rate 18 16 Blood Pressure [Le ft Upper Arm] Blood Pressure [Ri ght Arm] Pulse Oximetry 98 94 Oxygen Delivery Me thod Room Air Room Air 11/30/22 23:00 11/30/22 23:00 12/01/22 03:09 Temperature 98.8 F 98.6 F Pulse Rate Pulse Rate [Pulse Oximeter] Respiratory Rate 16 14 14 Blood Pressure [Le ft Upper Arm] Blood Pressure [Ri ght Arm] 126/69 Pulse Oximetry 96 98 Oxygen Delivery Me thod Room Air Room Air 12/01/22 07:00 12/01/22 07:35 12/01/22 08:30 Temperature 98.2 F Pulse Rate 79 Pulse Rate [Pulse Oximeter] 83 Respiratory Rate 14 14 Blood Pressure [Le ft Upper Arm] Blood Pressure [Ri ght Arm] 112/82 Pulse Oximetry 94 Oxygen Delivery Me thod Room Air 12/01/22 12:00 Temperature 98.1 F Pulse Rate Pulse Rate [Pulse Oximeter] 79 Respiratory Rate 16 Blood Pressure [Le ft Upper Arm] Blood Pressure [Ri ght Arm] 133/86 Pulse Oximetry 96 Oxygen Delivery Me thod Room Air Documenting provider has reviewed patient's vital signs: yes Labs Labs: Laboratory Results - last 24 hr 11/30/22 11/30/22 11/30/22 18:33 18:33 18:33 WBC 14.00 H RBC 4.79 Hgb 14.5 Hct 43.7 MCV 91 MCH 30 MCHC 33 RDW Coeff of [place]ie 13.3 Plt Count 225 Neut % (Auto) 82.0 H Lymph % (Auto) 8.5 L [place] % (Auto) 8.6 Eos % (Auto) 0.6 Baso % (Auto) 0.1 Neut # (Auto) 11.50 H Lymph # (Auto) 1.20 [place] # (Auto) 1.20 H Eos # (Auto) 0.10 Baso # (Auto) 0.00 Sodium Potassium Chloride Carbon Dioxide BUN Creatinine Estimated Creat Clear Estimated GFR Glucose Lactate 1.2 Calcium Total Bilirubin 0.7 Direct Bilirubin 0.1 AST 41 H ALT 25 Alkaline Phosphatase 78 C-Reactive Protein 19.0 H Total Protein 7.3 Albumin 4.1 Procalcitonin 0.13 TSH Urine Color Urine Appearance Urine pH Ur Specific [place] Urine Protein Urine Glucose (UA) Urine Ketones Urine Blood Urine Nitrite Urine Bilirubin Urine Urobilinogen Ur Leukocyte Esterase Urine RBC Urine WBC Ur Squamous Epith Cells Urine Bacteria SARS-CoV-2 (PCR) 11/30/22 11/30/22 12/01/22 18:54 19:44 05:54 WBC 11.06 H RBC 4.54 Hgb 13.8 Hct 41.4 MCV 91 MCH 30 MCHC 33 RDW Coeff of [place] 13.4 Plt Count 213 Neut % (Auto) 89.1 H Lymph % (Auto) 6.5 L [place] % (Auto) 2.3 Eos % (Auto) 0.6 Baso % (Auto) 0.1 Neut # (Auto) 9.90 H Lymph # (Auto) 0.70 L [place] # (Auto) 0.30 Eos # (Auto) 0.10 Baso # (Auto) 0.00 Sodium Potassium Chloride Carbon Dioxide BUN Creatinine Estimated Creat Clear Estimated GFR Glucose Lactate Calcium Total Bilirubin Direct Bilirubin AST ALT Alkaline Phosphatase C-Reactive Protein Total Protein Albumin Procalcitonin TSH Urine Color Dark yellow Urine Appearance Clear Urine pH 6.0 Ur Specific [place] 1.025 Urine Protein 1+ A Urine Glucose (UA) Negative Urine Ketones 2+ A Urine Blood Negative Urine Nitrite Negative Urine Bilirubin Negative Urine Urobilinogen 0.2 Ur Leukocyte Esterase Negative Urine RBC 0-2 Urine WBC 0-2 Ur Squamous Epith Cells Few Urine Bacteria None SARS-CoV-2 (PCR) Negative SARS-CoV-2 12/01/22 12/01/22 05:54 05:54 WBC RBC Hgb Hct MCV MCH MCHC RDW Coeff of [place] Plt Count Neut % (Auto) Lymph % (Auto) [place] % (Auto) Eos % (Auto) Baso % (Auto) Neut # (Auto) Lymph # (Auto) [place] # (Auto) Eos # (Auto) Baso # (Auto) Sodium 137 Potassium 4.2 Chloride 106 Carbon Dioxide 24 BUN 14 Creatinine 0.7 Estimated Creat Clear 66.92 Estimated GFR 97 Glucose 179 H Lactate Calcium 8.7 Total Bilirubin Direct Bilirubin AST ALT Alkaline Phosphatase C-Reactive Protein Total Protein Albumin Procalcitonin TSH 1.170 Urine Color Urine Appearance Urine pH Ur Specific [place] Urine Protein Urine Glucose (UA) Urine Ketones Urine Blood Urine Nitrite Urine Bilirubin Urine Urobilinogen Ur Leukocyte Esterase Urine RBC Urine WBC Ur Squamous Epith Cells Urine Bacteria SARS-CoV-2 (PCR)
--- NOTE | 2022-12-01 19:32 | PC.NURSE ---
Pt alert and oriented, vitals stable this shift, on RA. Pt up to shower today, tolerated well. at bedside for majority of the shift. Pt tolerating diet, denies nausea at this time, no emesis this shift. Voiding without issue. PRN Tylenol admin x2 for L ear pain, pt rating 3-4/10, pt states Tylenol is effective at this time, pt aware if not to notify RN for additional PRN. NS continues at 100ml/hr. Continues on IV abx of Unasyn, IV patent. Tele sinus arrhythmia, afebrile. Pt has call light within reach and able to use appropriately.
[2022-12-01] MEDS: OXYCODONE 5 MG TABLET PO (22:51)
[2022-12-01] MEDS: ONDANSETRON 2 MG/ML inj 4 MG IVP (22:52)
[2022-12-02] VITALS (8 sets, daily range): BP systolic 119–143; BP diastolic 73–90; PULSE 69–81; RESP 16–18; TEMP 36.5–36.8; O2SAT 94–95
[2022-12-02] MEDS: AMPICILLIN/SULBACTAM 3 GM in 0.9 % SODIUM CHLORIDE Mini-bag 100 ML IVPB ×4 (02:50→20:45)
[2022-12-02] MEDS: 0.9 % SODIUM CHLORIDE 1000 ml 1,000 ML 100 ML IV (02:50)
[2022-12-02] MEDS: ACETAMINOPHEN 325 MG TABLET 650 MG PO ×2 (06:54→18:19)
[2022-12-02 07:03] LABS: Hematocrit 38.3 % (37.0-53.0); Hemoglobin* 12.7 gm/dL (13.5-17.5); Mean Corpuscular HGB Conc 33 gm/dL (32-36); Mean Corpuscular Hemoglobin 30 pg (26-34); Mean Corpuscular Volume 91 fL (80-100); Platelet Count* 227 K/uL (140-440); Red Blood Count 4.19 m/uL (4.30-5.90); White Blood Count* 8.44 K/uL (4.50-11.00)
[2022-12-02 07:04] LABS: Slide Review Reflex No
[2022-12-02 07:26] LABS: C Reactive Protein* 4.7 mg/dL (0.5-1.0)
--- NOTE | 2022-12-02 08:11 | PC.NURSE ---
Pt is alert and oriented x 3. Pt denies SOB, Chest pain, vomiting and SOB. Pt right ear is red, tender and has pink/yellow?drainage. Pt reports 5/10 pain, pain managed with warm wash cloth to right ear and PRN medications. Pt reported mild nausea, managed with PRN Zofran. Pt is SBA/IND and tolerating a regular diet. Pt slept throughout night. ???
[2022-12-02] MEDS: APIXABAN 5 MG TABLET PO ×2 (08:39→20:45)
[2022-12-02] MEDS: predniSONE 20 MG TABLET 40 MG PO (08:39)
--- NOTE | 2022-12-02 12:27 | W.PM.ENTPN ---
ENT-PN: Subj Subjective Time Seen by Provider: 09:00 Date Seen: 12/02/22 Interval history: Hospital day 2. 80% improved compared to yesterday. Still having drainage from the right ear. Nasal drainage much improved. Has lost much of his hearing on the right ear. Denies tinnitus. Unfortunately he was not started on ear drops I will resume those today. I did clean the ear. He has some swelling of the lateral canal but TM is clearly visible in still inflamed but not bright red any more. Progress Note: A&P Assessment and plan (1) Mastoiditis of right side: Problem details: Rule out Farias's granulomatosis. Most likely an infection only. Treated with UNASYN IV abx for infection and corticosteroids Status: Acute Plan Overall improved but now still having persistent right ear pain. Immunologic tests pending. CRP and white count her decreasing however. Would continue Ciprodex drops 4 drops q.i.d., when he does go home should be on Augmentin 875 b.i.d. and would keep him on prednisone until we have results of immunologic testing. Time Spent With Patient Total time spent: 35 Exam Narrative: Exam Narrative: See above Const: Vital Signs, click to edit/add: Vital Signs - 24 hr 12/01/22 15:00 12/01/22 15:00 12/01/22 19:00 Temperature 98.4 F 98.3 F Pulse Rate Pulse Rate [Apical ] Pulse Rate [Pulse Oximeter] 76 84 76 Respiratory Rate 16 16 18 Blood Pressure [Ri t Arm] 136/85 135/82 Pulse Oximetry 94 97 Oxygen Delivery Me thod Room Air Room Air Oxygen Flow Rate 12/01/22 22:54 12/01/22 23:00 12/01/22 23:00 Temperature 98.0 F 98.0 F Pulse Rate Pulse Rate [Apical ] Pulse Rate [Pulse Oximeter] 76 75 75 Respiratory Rate 18 20 20 Blood Pressure [Ri ght Arm] 140/76 H 158/88 H Pulse Oximetry 92 90 Oxygen Delivery Me thod Room Air Nasal Cannula Oxygen Flow Rate 2 12/02/22 03:06 12/02/22 07:00 12/02/22 07:00 Temperature 98.3 F 97.9 F Pulse Rate Pulse Rate [Apical ] 78 Pulse Rate [Pulse Oximeter] 74 74 Respiratory Rate 16 18 Blood Pressure [Ri ght Arm] 141/83 H 143/90 H Pulse Oximetry 94 94 Oxygen Delivery Me thod Room Air Room Air Oxygen Flow Rate 12/02/22 11:00 12/02/22 10:22 12/02/22 11:18 Temperature 97.9 F Pulse Rate 81 81 Pulse Rate [Apical ] Pulse Rate [Pulse Oximeter] 74 Respiratory Rate 18 Blood Pressure [Ri ght Arm] 119/86 Pulse Oximetry 94 Oxygen Delivery Me thod Room Air Oxygen Flow Rate ENT-PN: Obj Labs Labs: Laboratory Results - last 24 hr 12/02/22 12/02/22 06:10 06:10 WBC 8.44 RBC 4.19 L Hgb 12.7 L Hct 38.3 MCV 91 MCH 30 MCHC 33 Plt Count 227 C-Reactive Protein 4.7 H
--- NOTE | 2022-12-02 15:10 | PC.NURSE ---
End of shift: Pt is A&Ox3. VSS. Has serosanguineous drainage from right ear. Pt has rated pain from 0-4 and declined pain medication but has been alternating heat and cold compress on R ear. Nose bleed occurred this am with MD present. Pressure was applied and nose was packed with gauze until bleeding ceased. Tele D/C per MD order.
--- NOTE | 2022-12-02 15:31 | PM.IMPN1 ---
Progress Note: A&P Assessment and plan (1) Mastoiditis of right side: Problem details: Rule out Farias's granulomatosis. Most likely an infection only. Treated with UNASYN IV abx for infection and corticosteroids Status: Acute (2) Sinusitis: Problem details: Rule out Farias's granulomatosis. Most likely an infection only. Treated with UNASYN IV abx for infection and corticosteroids Status: Acute (3) Atrial fibrillation: Problem details: Anticoagulated Status: Acute (4) Right otitis externa: Status: Acute Plan 1. Reviewed impression with patient and . 2. Discussed with Dr. Llamas, ENT. 3. Added Ciprodex for right otitis externa. 4. It is possible patient's condition may be improved sufficiently that he might be able to be discharged tomorrow. Would consider switching to Augmentin orally if patient is ready to be discharged tomorrow. He already has a prescription for the Augmentin, and may need to simply resume this now that we have the acute infection under much better control with the IV antibiotics. 5. The tentative outpatient follow-up plan is that he would see Dr. Kapil Galloway this coming week in Dr. Llamas's absence. Dr. Jimenez, ENT, will be available during Dr. Llamas's absence. Time Spent With Patient Total time spent: 40 minutes Subjective Time Seen by Provider: 09:00 Date Seen: 12/02/22 Interval history: Hospital day 3. Was doing well yesterday until nighttime and then he had more drainage and more pain from the affected right ear. Nasal drainage much improved, but developed epistaxis this morning. He is still unable to hear out of the right ear. Denies tinnitus. Denies vertigo. Eating and drinking. Moving about his room adequately. Exam Narrative: Exam Narrative: Afebrile for more than 24 hours. Last fever was at 4:46 p.m. on 11/29/2022 with a temperature of 100.8? F. Absent hearing right ear. Adequate hearing left ear. Left tympanic membrane is normal. Right tympanic membrane remains inflamed with clear discharge from the external auditory canal. Discomfort with movement of left pinna. Oropharynx is benign. Lungs clear to auscultation. Heart tones with regular rhythm. Abdomen benign. Extremities without edema. Independent transfer, station, and gait. Const: Vital Signs, click to edit/add: Vital Signs - 24 hr 12/01/22 19:00 12/01/22 22:54 12/01/22 23:00 Temperature 98.3 F 98.0 F 98.0 F Pulse Rate Pulse Rate [Apical ] Pulse Rate [Pulse Oximeter] 76 76 75 Respiratory Rate 18 18 20 Blood Pressure [Ri ght Arm] 135/82 140/76 H 158/88 H Pulse Oximetry 97 92 90 Oxygen Delivery Me thod Room Air Room Air Nasal Cannula Oxygen Flow Rate 2 12/01/22 23:00 12/02/22 03:06 12/02/22 07:00 Temperature 98.3 F 97.9 F Pulse Rate Pulse Rate [Apical ] Pulse Rate [Pulse Oximeter] 75 74 74 Respiratory Rate 20 16 18 Blood Pressure [Ri ght Arm] 141/83 H 143/90 H Pulse Oximetry 94 94 Oxygen Delivery Me thod Room Air Room Air Oxygen Flow Rate 12/02/22 07:00 12/02/22 11:00 12/02/22 10:22 Temperature 97.9 F Pulse Rate 81 Pulse Rate [Apical ] 78 Pulse Rate [Pulse Oximeter] 74 Respiratory Rate 18 Blood Pressure [Ri ght Arm] 119/86 Pulse Oximetry 94 Oxygen Delivery Me thod Room Air Oxygen Flow Rate 12/02/22 11:18 Temperature Pulse Rate 81 Pulse Rate [Apical ] Pulse Rate [Pulse Oximeter] Respiratory Rate Blood Pressure [Ri ght Arm] Pulse Oximetry Oxygen Delivery Me thod Oxygen Flow Rate Documenting provider has reviewed patient's vital signs: yes Labs Labs: Laboratory Results - last 24 hr 12/02/22 12/02/22 06:10 06:10 WBC 8.44 RBC 4.19 L Hgb 12.7 L Hct 38.3 MCV 91 MCH 30 MCHC 33 Plt Count 227 C-Reactive Protein 4.7 H
--- NOTE | 2022-12-02 18:36 | PC.NURSE ---
Shift Note: Pt independent with cares. Set up for shower this evening. Abx infused without difficulty and ear drops placed into right ear after supper. Pt then laid on his left side for 30 minutes post administration. Rates pain 1/10, PRN Tylenol given and pt states he continues to have minimal serosanguineous drainage from the right ear.
[2022-12-02] MEDS: SODIUM CHLORIDE 0.9 % (FLUSH) 10 ML SYRINGE 5 ML IVF (20:45)
[2022-12-03 03:00] VITALS: BP 121/84; PULSE 66; RESP 18; TEMP 36.7; O2SAT 93
[2022-12-03] MEDS: AMPICILLIN/SULBACTAM 3 GM in 0.9 % SODIUM CHLORIDE Mini-bag 100 ML IVPB (03:14)
--- NOTE | 2022-12-03 06:46 | PC.NURSE ---
Shift note: Pt is doing well, ear drainage and pain reduced. Pt has good amount of urine therefore straight cath not done. Alert and oriented and vitally stable.
[2022-12-03 08:00] VITALS: BP 142/83; PULSE 66; PULSE 70; PULSE 74; RESP 18; TEMP 36.6; O2SAT 95
--- NOTE | 2022-12-03 08:03 | P.DS_ITS ---
DS: Providers Provider Date Seen: 12/03/22 Date of admission: 11/30/22 22:31 Primary care physician: Not a Local Provider Admitting Clinician: Graham Lin MD Consults: Devante Llamas MD Attending Physician on discharge: Graham Lin MD Date of Discharge: 12/03/22 DS: Diagnosis Discharge Diagnosis (1) Mastoiditis of right side: Status: Acute Problem details: Negative testing for granulomatosis with polyangiitis. Clinically improved on ampicillin sulbactam (2) Sinusitis: Status: Acute Problem details: Improved on ampicillin sulbactam (3) Atrial fibrillation: Status: Acute Problem details: New diagnosis. Echocardiogram shows preserved ejection fraction with no significant valvular disease. Start on anticoagulation. No need for rate control. (4) Right otitis externa: Status: Acute Problem details: Continue ear drops, Ciprodex DS: Summary Hospital Course Hospital Course: 72-year-old male with sinusitis and right annalee mastoiditis. Initially seen as an outpatient and then acutely got worse. Admitted to the hospital. Treated with Unasyn and Ciprodex drops. Also treated with prednisone. Concern for granulomatosis with polyangiitis. Serologic testing was negative. Status at Discharge Cognitive/behavioral status at discharge: Baseline Functional status at discharge: independent ambulation Overall status at discharge: patient is back to baseline Time Spent with Patient Time attestation: Total time spent providing and/or coordinating discharge services: Time spent: Greater than 30 minutes Exam Narrative: Exam Narrative: He is alert and appears in no distress. Left pinna external canal and TM are normal. Right pinna is normal. Right external canal with minimal erythema. Small amount of drainage. Opacification of the TM on the right. Neck is supple without mass or adenopathy. Oropharynx is normal. Const: Vital Signs, click to edit/add: Vital Signs - 24 hr 12/02/22 11:00 12/02/22 10:22 12/02/22 11:18 Temperature 97.9 F Pulse Rate 81 81 Pulse Rate [Apical ] Pulse Rate [Pulse Oximeter] 74 Respiratory Rate 18 Blood Pressure [Ri ght Arm] 119/86 Pulse Oximetry 94 Oxygen Delivery Me thod Room Air 12/02/22 15:00 12/02/22 15:00 12/02/22 19:00 Temperature 98.2 F 98.1 F Pulse Rate Pulse Rate [Apical ] 75 75 73 Pulse Rate [Pulse Oximeter] Respiratory Rate 16 18 18 Blood Pressure [Ri ght Arm] 139/83 119/73 Pulse Oximetry 94 95 Oxygen Delivery Me thod Room Air Room Air 12/02/22 23:00 12/03/22 03:00 Temperature 97.7 F 98.1 F Pulse Rate Pulse Rate [Apical ] 69 66 Pulse Rate [Pulse Oximeter] Respiratory Rate 18 18 Blood Pressure [Ri ght Arm] 119/78 121/84 Pulse Oximetry 95 93 Oxygen Delivery Me thod Room Air Room Air Documenting provider has reviewed patient's vital signs: yes DS: Data Data Completed and Pending Labs on day of discharge: Preliminary micro results at discharge 11/30/22 18:57 Blood Culture - Preliminary Blood NO GROWTH AFTER 48 HOURS 11/30/22 19:00 Blood Culture - Preliminary Blood NO GROWTH AFTER 48 HOURS 11/30/22 19:00 Wound Culture - Preliminary Ear Right Gram positive cocci#1 Gram positive cocci#[address] scan - head: Radiologist's impression: Indication: Right otorrhea. Technique: CT of the temporal bones performed without IV contrast. Comparison: CT head 11/29/2022. Findings: RIGHT: Moderate 2 severe opacification of the external auditory canal near the tympanic membrane. No osseous erosion. There is interval development of moderate to severe opacification of the mastoid air cells and middle ear which has significantly progressed since prior CT 11/29/2022. The ossicles appear intact without erosion identified. Scutum appears sharp. The inner ear structures including the cochlea, semicircular canals, vestibule and vestibular aqueduct appear unremarkable. Osseous IAC is intact. The path of the facial nerve canal is preserved. LEFT: The external auditory canal is patent. The tympanic membrane is not thickened. The mesotympanum is well aerated. The scutum is sharp. Ossicles are intact without evidence of erosion. The epitympanum and mastoid air cells appear clear. The inner ear structures including the cochlea, semicircular canals, vestibule and vestibular aqueduct appear unremarkable. Osseous IAC is intact. The path of the facial nerve canal is preserved. OTHER: Moderate thickening of the right maxillary and ethmoid sinuses. There is chronic mucoperiosteal reaction. Orbits appear intact. Impression: Right temporal bone: 1. Interval development of moderate to severe external auditory canal, mastoid and middle ear opacification. No erosions. Findings could represent otomastoiditis and otitis externa. Correlate with otoscopic examination. Left temporal bone: 1. Unremarkable. Other: 1. Moderate paranasal sinus mucosal disease. Discharge Plan Discharge Disposition: Home, Self-Care Date of Admission: 11/30/22 22:31 Attending Provider on Discharge: Brennan Hawk Primary Care Provider: Provider,Not a Local Condition: Improved Anticipated Discharge Date/Time: 12/03/22 09:00 Discharge Medications: New amoxicillin-pot clavulanate 875-125 mg Tablet 875 mg PO BIDWM Qty: 20 0RF Eliquis 5 mg Tablet 5 mg PO BID Qty: 60 0RF Continued ciprofloxacin-dexamethasone [Ciprodex] 0.3-0.1 % drops,suspension 6 drp otic (ear) QID 7 Days Qty: 7.5 1RF Rx Instructions: right ear azelastine 137 mcg (0.1 %) aerosol,spray 2 spray INTRANASAL Q12H Label Comments: [NO ORIGINAL SIG] fluticasone propionate 50 mcg/actuation spray,suspension 1 spray INTRANASAL BID cetirizine [All Day Allergy (cetirizine)] 10 mg tablet 10 mg PO DAILY PRN cholecalciferol (vitamin D3) [Vitamin D3] 25 mcg (1,000 unit) capsule 25 mcg PO DAILY Discharge Orders: Discharge Order (Routine); Ordered 12/03/22 Ordered By: Brennan Hawk Activity Level: No Restrictions Discharge Diet: Regular Follow Up Appointments: Kapil Galloway MD [Staff Physician] - (Follow-up in clinic next week) Provider,Not a Local [Primary Care Provider] - Forms: [employer] Info Instructions
[2022-12-03] MEDS: APIXABAN 5 MG TABLET PO (08:35)
[2022-12-03] MEDS: AMOXICILLIN/CLAVULANATE 875 mg/125 mg TABLET PO (08:35)
--- NOTE | 2022-12-03 12:06 | PC.NURSE ---
VSS AND AFEBRILE. LS CLEAR. BS ACTIVE AND PASSING GAS. PATIENT DENIES PAIN THIS AM AND REPORTS SCANT RIGHT EAR DRAINAGE THIS AM. TOLERATING REGULAR DIET. SALINE LOCK DC'D AND REVIEWED DC INSTRUCTIONS WITH PATIENT AND HIS . BOTH DENIED QUESTIONS OR CONCERNS. PATIENT'S EAR DROPS FROM HOME SENT WITH PATIENT. PATIENT DC'D HOME VIA .
== END 2022-12-03 10:03 | disposition home or self-care (01) | DRG 153 ==
LOC: ED 20:49 → MEDSURG 20:51
PROVIDERS: Internal Medicine; Admitting Provider Hospitalist; Emergency Provider Emergency Medicine; Visit Provider Hospitalist
DX: H70.001 Acute mastoiditis without complications, right ear (principal); J01.90 Acute sinusitis, unspecified; H60.501 Unspecified acute noninfective otitis externa, right ear; R51.9 Headache, unspecified; I48.91 Unspecified atrial fibrillation; Z79.01 Long term (current) use of anticoagulants; E86.0 Dehydration; I10 Essential (primary) hypertension
CPT/HCPCS: 36415; 71045; 80048; 80076; 81001; 83605; 84145; 84443; 85025; 85027; 86140; 87040; 87070; 87186; 87635; 93005; 93306; 99285; A9270; J0295; J1885; J2405; J2543; J2765; J7030; J7512

== ENCOUNTER 2022-12-21 11:06 | Outpatient (CLI) | payer MEDICARE, SELFPAY ==
--- NOTE | 2022-12-21 11:00 | CRLHL7_ITS ---
For Patients: As a result of the Century Cures Act, medical imaging exams and procedure reports are released immediately into your electronic medical record. You may view this report before your referring provider. If you have questions, please contact your health care provider. INDICATION: Ear pain. TECHNIQUE: Noncontrast CT images acquired through the temporal bones. COMPARISON: CT temporal bones 11/30/2022. FINDINGS: Right side: Improved patency of the external auditory canal with persistent moderate opacification of the medial osseous segment. Thickened tympanic membrane. Worsening severe opacification of the middle ear cavity, including Prussak`s space, sinus tympani, and facial nerve recess. No ossicular or scutal erosion. No evidence for otosclerosis. Normal morphology of the inner ear structures. No semicircular canal dehiscence. Worsening severe opacification of the mastoid air cells. No coalescence of mastoid septa. Left Side: The external auditory canal is widely patent. The tympanic membrane is faintly visualized. The middle ear cavity is clear. The ossicles and scutum are intact. No evidence for otosclerosis. Normal morphology of the inner ear structures. No semicircular canal dehiscence. The mastoid air cells are clear. Other: Moderately severe mucosal thickening and small air-fluid level in the right maxillary sinus. [id number] left maxillary sinus mucosal thickening. IMPRESSION: 1. Worsening severe opacification of the right middle ear cavity and right mastoid air cells. Findings may be secondary to acute otomastoiditis or chronic otomastoid airspace disease. No ossicular or scutal erosion. There is improved aeration of the right external auditory canal. 2. Unremarkable CT of the left temporal bones. 3. Similar moderately severe mucosal thickening and small air-fluid level in the right maxillary sinus, raising the possibility of acute sinusitis. Please note that all CT scans at this facility use dose modulation, iterative reconstruction, and/or weight-based dosing when appropriate to reduce radiation dose to as low as reasonably achievable. Dictated by Ricky Paula MD @ 12/21/2022 12:31:16 PM (Electronically Signed)
== END 2022-12-21 11:07 | disposition home or self-care (01) ==
LOC: CT 11:08
PROVIDERS: Visit Provider Otolaryngology
DX: H92.09 Otalgia, unspecified ear (principal); J32.0 Chronic maxillary sinusitis
CPT/HCPCS: 70480

== ENCOUNTER 2022-12-23 08:52 | Day surgery (SDC) | payer MEDICARE, SELFPAY ==
[2022-12-23] VITALS (11 sets, daily range): BP systolic 103–122; BP diastolic 31–85; PULSE 74–94; RESP 1–20; TEMP 36.3–36.7; O2SAT 94–99; BMI 27.4
--- NOTE | 2022-12-23 09:09 | SUR.PREOP ---
Patient provided home covid negative results to RN.
[2022-12-23] MEDS: SODIUM CHLORIDE 0.9 % (FLUSH) 10 ML SYRINGE IVF (09:20)
[2022-12-23] MEDS: LACTATED RINGERS 1000 ML 1,000 ML 100 ML IV (09:20)
--- NOTE | 2022-12-23 11:49 | P.ANES_ITS ---
Anesthesia Charges Start Date/Time Anesthesia Start Date: 12/23/22 Anesthesia Start Time: 11:31 Stop Date/Time Anesthesia Stop Date: 12/23/22 Anesthesia Stop Time: 12:07 Summary Extremes of Age - Over 70 or under 1: [employer]
[2022-12-23] MEDS: EPINEPHrine 1 MG/ML inj IRRIGATION (11:58)
[2022-12-23] MEDS: fentaNYL 100 MCG/2 ML inj 50 MCG IVP (12:25)
--- NOTE | 2022-12-23 13:11 | W.PM.ENTPROC ---
Procedure Note Date of procedure: 12/23/22 Procedure: Preoperative diagnosis is granulation polyp surface right tympanic membrane, serous otitis media, otomastoiditis without coalescence new line postoperative diagnosis same Procedure partial removal of polyp surface right tympanic membrane for biopsy and right myringotomy with tube Under general LMA anesthesia patient was prepped draped usual fashion. The right ear canal was inspected. An inferior radial myringotomy incision was made and a copious amount of serosanguineous fluid was aspirated. Bleeding was controlled with direct pressure with cotton balls or cotton ball soaked in 1 100,000 adrenaline. Only 2 cotton balls that were soaked were placed. The polyp was then incised parallel to tympanic membrane and the majority of the polyp was removed. A Duravent tube was then placed into the myringotomy incision. Ciprodex drops were placed. The patient procedure well was taken recovery in satisfactory condition. Blood loss during procedure less than 10 mL. Surgeon: Devante Llamas MD
== END 2022-12-23 13:35 | disposition home or self-care (01) ==
PROVIDERS: Visit Provider Otolaryngology
PROC: (CPT 69420; principal; 2022-12-23 12:00)
DX: H65.91 Unspecified nonsuppurative otitis media, right ear (principal); H70.91 Unspecified mastoiditis, right ear; H74.41 Polyp of right middle ear
CPT/HCPCS: 69436; 69540; 00120; 88304; 88341; 88342; 99100; A9270; J0171; J1100; J2405; J2704; J3010; J7120

== ENCOUNTER 2023-01-16 09:34 | Outpatient (CLI) | payer MEDICARE, SELFPAY ==
--- NOTE | 2023-01-16 10:53 | P.ANES_ITS ---
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
--- NOTE | 2023-01-16 12:22 | W.ANESCHARGE ---
Anesthesia Charges Start Date/Time Anesthesia Start Date: 01/16/23 Anesthesia Start Time: 10:25 Stop Date/Time Anesthesia Stop Date: 01/16/23 Anesthesia Stop Time: 10:50
== END 2023-01-16 09:35 | disposition home or self-care (01) ==
LOC: OP CLINIC 09:35
PROVIDERS: Visit Provider Internal Medicine Gastroenterology
DX: Z12.11 Encounter for screening for malignant neoplasm of colon (principal); K63.5 Polyp of colon; Z86.010 Personal history of colon polyps
CPT/HCPCS: 45380; 811; 88305; 99100; J2704

== ENCOUNTER 2023-04-03 10:52 | Outpatient (CLI) | payer MEDICARE, SELFPAY ==
--- NOTE | 2023-04-03 11:00 | CRLHL7_ITS ---
For Patients: As a result of the Century Cures Act, medical imaging exams and procedure reports are released immediately into your electronic medical record. You may view this report before your referring provider. If you have questions, please contact your health care provider. INDICATION: Otorrhea right side. History of mastoiditis. Left otalgia. Possible CSF leak from right ear. TECHNIQUE: Noncontrast CT images acquired through the temporal bones. COMPARISON: CT temporal bones 12/21/2022. FINDINGS: Right side: Improved patency of the external auditory canal with mild opacification of the osseous segment. Thickened tympanic membrane. Improved moderate opacification of the middle ear cavity, including Prussak space and sinus tympani. No ossicular or scutal erosion. No evidence for otosclerosis. Normal morphology of the inner ear structures. No semicircular canal dehiscence. Improved subtotal opacification of the mastoid air cells. No coalescence of mastoid septa. Left Side: The external auditory canal is widely patent. The tympanic membrane is faintly visualized. The middle ear cavity is clear. The ossicles and scutum are intact. No evidence for otosclerosis. Normal morphology of the inner ear structures. No semicircular canal dehiscence. The mastoid air cells are clear. Other: Mild to moderate right maxillary sinus mucosal thickening. IMPRESSION: 1. Improved moderate opacification of the right middle ear cavity and subtotal opacification of the right mastoid air cells. No ossicular or scutal erosion. Findings again may be secondary to chronic airspace disease, though acute otomastoiditis could be considered in an appropriate clinical setting. There is improved aeration of the right external auditory canal. 2. Unremarkable CT of the left temporal bones. Please note that all CT scans at this facility use dose modulation, iterative reconstruction, and/or weight-based dosing when appropriate to reduce radiation dose to as low as reasonably achievable. Dictated by Ricky Paula MD @ 04/04/2023 6:52:25 AM (Electronically Signed)
== END 2023-04-03 10:53 | disposition home or self-care (01) ==
LOC: CT 10:53
PROVIDERS: PCP Family Medicine; Visit Provider Otolaryngology
DX: H92.09 Otalgia, unspecified ear (principal); H92.10 Otorrhea, unspecified ear
CPT/HCPCS: 70480

== ENCOUNTER 2023-12-01 06:31 | Day surgery (SDC) | payer MEDICARE, SELFPAY ==
[2023-12-01] VITALS (10 sets, daily range): BP systolic 108–131; BP diastolic 67–91; PULSE 16–88; RESP 15–72; TEMP 36.6–37.1; O2SAT 93–96; BMI 28.0
[2023-12-01] MEDS: SODIUM CHLORIDE 0.9 % (FLUSH) 10 ML SYRINGE IVF (07:13)
[2023-12-01] MEDS: LACTATED RINGERS 1000 ML 1,000 ML 100 ML IV (07:14)
[2023-12-01] MEDS: CIPROFLOX/DEXAMETH OTIC (nc) 4 DROP EAR-RIGHT (08:06)
--- NOTE | 2023-12-01 08:15 | W.ANESCHARGE ---
Anesthesia Charges Start Date/Time Anesthesia Start Date: 12/01/23 Anesthesia Start Time: 07:55 Stop Date/Time Anesthesia Stop Date: 12/01/23 Anesthesia Stop Time: 08:16
[2023-12-01] MEDS: IBUPROFEN 200 MG TABLET PO (08:58)
--- NOTE | 2023-12-01 11:03 | W.ANESCHARGE ---
Anesthesia Charges Start Date/Time Anesthesia Start Date: 12/01/23 Anesthesia Start Time: 07:55 Stop Date/Time Anesthesia Stop Date: 12/01/23 Anesthesia Stop Time: 08:16 Summary Extremes of Age - Over 70 or under 1: MDA
--- NOTE | 2023-12-01 13:18 | W.PM.ENTPROC ---
Procedure Note Date of procedure: 12/01/23 Procedure: Preoperative diagnosis right serous otitis media, right tympanic membrane retraction, possible retained right tympanostomy tube Postoperative diagnosis no visible retained tube, tympanic membrane retraction on the right, right serous otitis Procedure right myringotomy and tube Under general mask anesthesia patient was prepped draped usual fashion. The right ear canal was inspected the operating microscope. The area where it appeared there may be a retained tube was incised with a [place] blade. There did not appear to be a tube beneath the tympanic membrane and this was just darkish colored fluid. The fluid was aspirated a Duravent tube placed followed by Ciprodex drops. The patient procedure was taken recovery in satisfactory condition. Blood loss 0. Surgeon: Devante Llamas MD
== END 2023-12-01 09:14 | disposition home or self-care (01) ==
LOC: OR 06:31
PROVIDERS: PCP Family Medicine; Visit Provider Otolaryngology
PROC: (CPT 69420; principal; 2023-12-01 07:45)
DX: H65.91 Unspecified nonsuppurative otitis media, right ear (principal); H73.891 Other specified disorders of tympanic membrane, right ear
CPT/HCPCS: 69436; 00120; 99100; A9270; J2405; J2704; J3010; J7120

== ENCOUNTER 2024-11-12 07:13 | Outpatient (CLI) | payer MEDICARE, SELFPAY | END 2024-11-12 07:14 | disposition home or self-care (01) | LOC: INJ CL 07:15 | PROVIDERS: PCP Family Medicine; Visit Provider Family Medicine | DX: M54.16 Radiculopathy, lumbar region (principal); M51.369 Other intervertebral disc degeneration, lumbar region without mention of lumbar back pain or lower extremity pain | CPT/HCPCS: 62323; J0702 ==

== ENCOUNTER 2024-12-31 07:15 | Outpatient (CLI) | payer MEDICARE, SELFPAY | END 2024-12-31 07:16 | disposition home or self-care (01) | LOC: INJ CL 07:16 | PROVIDERS: PCP Family Medicine; Visit Provider Family Medicine | DX: M54.16 Radiculopathy, lumbar region (principal); M48.062 Spinal stenosis, lumbar region with neurogenic claudication | CPT/HCPCS: 64483; J1100 ==

== ENCOUNTER 2025-03-11 09:54 | Outpatient (CLI) | payer MEDICARE, SELFPAY ==
--- NOTE | 2025-03-11 10:30 | CRLHL7_ITS ---
For Patients: As a result of the Century Cures Act, medical imaging exams and procedure reports are released immediately into your electronic medical record. You may view this report before your referring provider. If you have questions, please contact your health care provider. INDICATION: Otorrhea, mainly right side TECHNIQUE: Non-contrast CT of the temporal bones and bilateral IAC`s is submitted. COMPARISON: CT internal auditory canals dated 04/03/2023 FINDINGS: Right temporal bone: The right external auditory canal is patent with new mild peripheral soft tissue thickening. There appears to be a focal defect in the posterior aspect of the tympanic membrane. The ossicular chain appears intact. No evidence of bony erosion in the middle ear cavity. There is complete opacification of the mastoid air cells and moderate opacification of the middle ear, both increased relative to prior. No evidence of mastoid air cell coalescence. The fluid containing inner ear vestibulocochlear structures and internal auditory canal are unremarkable. Unremarkable appearance of the facial nerve canal. Left temporal bone: Unremarkable. The left mastoid air cells and middle ear cavity are clear. The other visualized intracranial structures are unremarkable for age. Mild scattered mucosal thickening in the visualized paranasal sinuses. In the dependent nasopharynx, there is bilateral partial opacification with aerated material, most suggestive of mucous/secretions. No evident focal lesions on this noncontrast examination. Temporomandibular joints are intact. IMPRESSION: 1. Compared to 04/03/2023, there is increased right otomastoid opacification, now with complete opacification of the mastoid air cells and moderate middle ear opacification. The right tympanic membrane now also appears to be perforated posteriorly. As before, these findings are nonspecific, but could reflect sequelae of otomastoiditis and/or eustachian tube dysfunction. There is also new nonspecific mild soft tissue thickening along the right external auditory canal, which could reflect otitis externa. No evidence of coalescent mastoiditis on this noncontrast examination. 2. Unremarkable left temporal bone structures. Please note that all CT scans at this facility use dose modulation, iterative reconstruction, and/or weight-based dosing when appropriate to reduce radiation dose to as low as reasonably achievable. Dictated by Dimitris Sultana MD @ 03/12/2025 12:22:49 PM (Electronically Signed)
--- OUTSIDE RECORDS SUMMARY | 2025-03-11 10:43 | XMS_ITS | Clinical Summary ---
Author Organization [facility] Address [address] [place] [id number] Care Team Providers Care Fitter And Turner Name Role Phone KeithDeepti realtenzin KAPLAN Primary Care Provider [phone] Parag Romero MD Unavailable [phone] Nurses, Advanced Heart Failure Unavailable + Allergies Active Allergy Reactions Criticality Noted Date Comments Azithromycin Itching 02/02/2015 Diatrizoate Allergen Other - Describe In Comment Field 07/19/2007 Severe chest pressure with contrast in 1980s. CT with contrast in 2022 tolerated with premedication Dust Mites *Unknown 11/23/2006 Erythromycin Base Hives 07/16/2024 Feathers Runny Nose 07/26/2023 Iodinated Contrast Media Dyspnea 11/19/2024 Mold Extracts *Unknown 04/06/2007 Ntrjoeaw-Xhlxmevslb-Ejwa myxin Itching 11/23/2006 Sulfa (Sulfonamide Antibiotics) Rash 04/01/2019 Sulfamethoxazole Hives 07/16/2024 Trimethoprim Hives 07/16/2024 Medications multivitamin (MVI) tablet Take 1 tablet by mouth once daily. 0 09/23/19 12 Active ibuprofen (ADVIL; MOTRIN) 200 mg cap Take 200 mg by mouth 4 times daily if needed. Active cholecalciferol, Vitamin D3, 25 mcg (1,000 unit) chew chewable tabletIndication s:Vitamin D deficiency Chew 1 Tablet (1,000 units) by mouth once daily. 40 units = 1 mcg (1000 units = 25 mcg) 0 07/20/20 21 Active cetirizine (ZYRTEC) 10 mg tabletIndication s:Seasonal allergic rhinitis, unspecified trigger Take 1 Tablet (10 mg) by mouth once daily. 0 12/15/19 22 Active CPAPIndications: ASTRID (obstructive sleep apnea) CPAP machine for home use at pressure 7 cmw, full face mask x1/3month with a full face cushion x1/mo 1 Each 11 03/29/20 22 Active adapalene (Differin) 0.1 % gelIndications:O ther acne Apply topically to affected area(s) at bedtime. 45 g 3 07/20/20 22 Active loperamide (IMODIUM) 2 mg capsuleIndicatio ns:Loose stools Take 4mg by mouth with 1st loose stool, then 2mg with each subsequent loose stool. Max 16 mg in 24 hrs 48 Capsule 1 10/31/19 24 Active psyllium powdIndications: Loose stools Mix 1 tsp in liquid then take by mouth once daily if needed for Constipation. 283 g 11 10/31/19 24 Active azelastine 137 mcg/actuation (Astelin) nasal sprayIndications :Seasonal allergic rhinitis, unspecified trigger,Non-recu rrent acute serous otitis media of left ear Inhale 2 Sprays into affected nostril(s) two times daily. 60 mL 1 03/19/20 24 Active tiZANidine (ZANAFLEX) 4 mg tabletIndication s:Back pain with radiculopathy,In guinal strain, left, initial encounter TAKE 1 TABLET EVERY 6 HOURS IF NEEDED FOR MUSCLE SPASM. MOSTLY USE AT NIGHT, WILL MAKE YOU DROWSY. 60 Tablet 5 07/30/20 24 Active aspirin-acetamin ophen-caffeine (Excedrin) 250-250-65 mg Take 1-2 Tablets by mouth every 6 hours if needed for Headache. Max acetaminophen dose: 4000mg in 24 hrs. 10/02/19 25 Active tadalafiL (Cialis) 5 mg tablet Take 5 mg by mouth once daily. 08/14/20 24 Active aspirin (ECOTRIN) 81 mg enteric coated tabletIndication s:Paroxysmal atrial fibrillation (HC) Take 6 Tablets (486 mg) by mouth once daily with a meal. 10/02/19 25 Active gabapentin 300 mg capsuleIndicatio ns:Lumbar radiculopathy Take 1 Capsule (300 mg) by mouth at bedtime. 30 Capsule 3 12/17/19 25 Active amoxicillin-clav ulanate 500-125 mg tablet Take 1 Tablet by mouth two times daily. 11/20/19 25 025 Discontinu ed(*Patien t states no longer taking) amoxicillin-clav ulanate 875-125 mg tabletIndication s:Right ear pain Take 1 Tablet by mouth two times daily with meals for 7 days. 14 Tablet 02/29/20 25 025 ofloxacin 0.3 % otic solutionIndicati ons:Right ear pain Place 5 Drops into right ear two times daily for 7 days. 5 mL 02/29/20 25 025 Active Problems Problem Noted Date Diagnosed Date Dilatation of aorta 07/30/2024 Primary cancer of bladder 11/14/2023 Overview (11/14/2023): Managed by urology. Low grade. Treated with removal and monitoring. 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 05/11/2017 Arthralgia of both hands 01/31/2017 Prostate cancer 07/03/2015 High prostate specific antigen (PSA) 07/18/2012 Overview (07/30/2024): 790.93 : ELEVATED PSA Thoracic outlet syndrome 03/18/2010 Overview (03/18/2010): bilateral Other acne 03/18/2010 Chronic bilateral low back pain without sciatica 03/18/2010 Mixed hyperlipidemia 02/28/2007 Personal history of colonic polyps 02/28/2007 Overview (01/17/2023): Colonoscopy 09/2011 polyps repeat in 5 years Colonoscopy 05/2017 normal, no sedation, repeat in 5 years Colonoscopy 01/2023 TA, repeat in 7 years, propofol 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 Migraine, unspecified, witho ut mention of intractable migraine without mention of status migrainosus 11/23/2006 Allergic rhinitis, cause unspecified Spondylosis, cervical Overview (03/18/2010): with foraminal stenosis at C3-4, C4-5 and C6-7 Encounters Date Type Department Care Team Description 02/28/2025 9:55 AM CDT Office Visit [facility] [address] [place] [address] Huber Castillo MD Ear Problem (Possible RIGHT ear infection/Having pain x 1 day) 02/28/2025 Travel 02/26/2025 Orders Only [facility] Scanner 1 scan: (1-Ord) [facility], CYSTOSCOPY, 02/26/2025 02/20/2025 3:30 PM CDT Ancillary Procedure [facility] [address] [facility] [address] [place] [address] 02/20/2025 Travel 02/18/2025 Transcribe Orders [facility] [place] [phone] Chance Sheth MD 01/31/2025 Telephone [facility] [address] [place] [address] Kilo Daniels MD Questions (Back Surgery) 01/16/2025 1:00 PM CDT Phone Office Visit [facility] [place] [address] [facility] [address] [place] [address] Kingsley Nguyen MD 01/16/2025 Travel 12/31/2024 7:40 AM CDT Office Visit [facility] at [facility] [address] [place] [address] Kilo Daniels MD Procedure (Left L5-S1 TFESI) 12/16/2024 11:20 AM CDT Office Visit [facility] [address] [place] [address] Kilo Daniels MD Musculoskeletal Problem (Follow up back pain had an L4-5 TAYLOR on 11/12/24) 12/16/2024 Travel from Last 3 Months Immunizations Immunization Administration Dates Next Due COVID-19 VACCINE SPIKEVAX (M ODERNA 50MCG/0.5ML) 12YO+ PFS 07/30/2024 COVID-19 vaccine (Pfizer-Bio NTech 30mcg/0.3mL) 12YO+ BIVALENT PF, MDV 07/20/2022 COVID-19 vaccine (Pfizer-Bio NTech 30mcg/0.3mL) PF, MDV 06/21/2021,10/29/2020,10/09/2020 Influenza, High-dose Inactivated 017,07/07/2016,07/03/2015,07/02 Influenza, IIV3 (Age >=3 years) 07/19/20 17,06/25/2009,08/08/2005,08/09 Influenza, Inactivated AIIV4 (Age 65+ Years) Preserv Free 07/21/2023,07/20/2022,06/21/2021 Influenza, Inactivated IIV3 (Age 65+ Years) Preserv Free 07/30/2024,07/11/2019,08/30/2018 Pneumococcal Poly,23-Valent (Pneumovax) 02/28/2014 Pneumococcal conj 13-Valent (Prevnar 13) 01/15/2015 RSV, Recombinant ADJ Reconst ituted (Arexvy 120MCG/0.5mL) 08/29/2023 Td (Age >=7 Years) 08/09/1995 Td, Preservative Free (age >= 7 Years) 5 Tdap 05/11/2012 Zoster (Shingrix-RZV, recombinant) 10/11/2019, Zoster (Zostavax-ZVL, live) 06/18/2013 Family History Medical History Relation Name Comments Cancer Father lung Heart Disease Father 3 LA's 1st in mid 50's Other Father colon polyps b 1921 Stroke Father 91 Cancer Mother lung Stroke Mother [address] rokes Diabetes Other 1 UNCLE Cancer-colon Other 2 2 of dad's cous ins of colon CA, no spine problems Cancer-colon Paternal Uncle Relation Name Status Comments Father Mother Other 1 Other 2 Paternal Uncle Social History Tobacco Use Types Packs/Day Years Used Date Smoking Tobacco: Never Passive Smoke Exposure: Never Smokeless Tobacco: Never Tobacco Cessation:Counseling Given: Yes Alcohol Use Standard Drinks/Week Comments Yes 0 (1 standard drink = 0.6 oz pur e alcohol) social, 1 beer per week PHQ-2 Answer Date Recorded PHQ-2 TOTAL SCORE 4 07/30/2024 Social Connections Answer Date Recorded Do you often feel lonely or isolated from those around you? 0 06/06/2024 Financial Resource Strain Answer Date R ecorded Difficulty of Paying Living Expenses 3 06/06/2024 Difficulty of Paying Living Expenses Not on file 06/06/2024 Food Insecurity Answer Date Recorded Do you worry your food will run out before you are able to buy more? 1 06/06/2024 Transportation Needs Answer Date Record ed Does lack of transportation keep you from medica l appointments? 1 06/06/2024 Does lack of transportation keep you from work, meetings or getting things that you need? 1 06/06/2024 Housing Stability Answer Date Recorded What is your housing situation today? 1 06/06/2024 Utilities Answer Date Recorded Do you have trouble paying f or utilities (for example, heat, electricity, water, phone)? 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 Gender Identity Not on file Sexual Orientation Not on file Occupation Industry Job Start Date Job End Date retired Not on file Not on file Not on file Obstetrics History Last Filed Vital Signs Vital Sign Reading Time Taken Comments Blood Pressure 136/76 02/28/2025 10:01 AM CDT Pulse 78 02/28/2025 10:01 AM CDT Temperature 36.6 C (97.9 F) 02/28/2025 10:01 AM CDT Respiratory Rate 16 01/12/2024 2:29 PM CDT Oxygen Saturation 99% 02/28/2025 10:01 AM CDT Inhaled Oxygen Concentration - - Weight 87.8 kg (193 lb 9.6 oz) 02/28/2025 10:01 AM CDT Height 174.4 cm (5' 8.66) 10/02/2024 11:[address] Body Mass Index 28.87 10/02/2024 11:41 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 Plan of Treatment Upcoming Encounters Date Type Department Care Team (Latest Contact Info) Description 03/13/2025 2:05 PM CDT Office Visit [facility] [address] [place] [address] JayroNatalia olsonDO [address] [place] [address] 03/20/2025 12:45 PM CDT Hospital Encounter [address] [address] Chance Sheth MD [address] [place], [place] [address] 03/20/2025 12:45 PM CDT - 03/20/2025 5:07 PM CDT Surgery [address] [address] Chance Sheth MD [address] [place] [address] PSF - Posterior Spine Fusion Levels: L4 to: L5 TLIF - Transforaminal Lumbar Interbody Fusion Levels: L4 to: L5 Decompression - Laminectomy Levels: L4 to: L5 Side: Bilateral Instrumentation and Bone Graft Scheduled Procedures Name Priority Associated Diagnoses Date/Ti me FUSION POSTERIOR SPINE LEVEL 01 Tier 4 1) Spondylolisthesis, Lumbar M43.16 2) Stenosis, Lumbar - w/Neurogenic Claudication M48.062 03/20/2025 12:45 PM CDT Health Maintenance Due Date Last Done Comments Tetanus booster 05/11/2022 05/11/2012, 01/17, 08/09/1995 COVID-19 vaccine series ( season) 2025 07/30/2024, 08/14/2023, 07/20/2022, Additional history exists Medicare Wellness for age 65+ 07/31/2025 07/30/2024, 07/21/2023, 07/20/2022, Additional history exists Depression screening for age 12+ 08/01/2025 08/01/2024, 07/30/2024, 07/21/2023, Additional history exists BMI (ht and wt on same day) for age 18+ 10/02/2025 10/02/2024, 07/30/2024, 07/21/2023, Additional history exists Tdap Completed 05/11/2012 Pneumococcal series for age 50+ Completed 01/15/2015, 02/28/2014 Hepatitis C screening for age 18-79 Completed 01/31/2017 Zoster (shingles) series for age 50+ Completed 10/11/2019, 07/16/2019, 06/18/2013 RSV vaccine for adults or Completed 08/29/2023 Influenza Vaccine Completed 07/30/2024, , 07/20/2022, Additional history exists Hepatitis B series for 19+ Aged Out N o longer eligible based on patient's age to complete this topic Goals Goal Patient Goal Type Associated Problems Recent Progress Patient-Stated? 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 Procedures Procedure Name Priority Date/Time Associated Diagnosis Comments SCAN-OPERATIVE/PRO CEDURE REPORT 02/26/2025 12:00 AM CDT MR SPINE LUMBAR WO Routine 02/20/2025 3: 43 PM CDT Spinal stenosis of lumbar region with neurogenic claudication AMB EPIDURAL STEROID INJECTION Routine 12/31/2024 12:00 AM CDT Spinal stenosis of lumbar region with neurogenic claudication Lumbar radiculopathy Lumbar facet arthropathy ANTI HCV Routine 01/31/2017 10:52 AM CDT Need for hepatitis C screening test from Last 3 Months or Most Recently Relevant to Health Maintenance Results * SCAN-OPERATIVE/PROCEDURE REPORT (02/26/2025 12:00 AM CDT) us Scanner OTHER Final Result * MR SPINE LUMBAR WO (02/20/2025 3:43 PM CDT) Anatomical Region Laterality Modality Spine, LUMBAR SPINE Magnetic Res onance 02/21/2025 11:5 1 AM CDT Impressions 02/21/2025 11:51 AM CDT 1. Normal alignment. No fractures. 2. Stable lumbar spondylosis. 3. At L3-4, mild narrowing of the right neural foramen 4. At L4-5, mild narrowing of the spinal canal and bilateral neural foramina Dictated by Parag Zhao MD @ 02/21/2025 11:51:59 AM (Electronically Signed) Narrative 02/21/2025 11:51 AM CDT For Patients: As a result of the Cures Act, medical imaging exams and procedure reports are released immediately into your electronic medical record. You may view this report before your referring provider. If you have questions, please contact your health care provider. INDICATION: Neurogenic claudication. Comparison 06/27/2024. Technique: Sagittal T1, T2, and STIR sequences. Axial T1 and T2 weighted sequences. FINDINGS: Normal vertebral body alignment. No fractures. No vertebral body loss of height. No ligamentous injury. No suspicious osseous lesions. Normal conus terminates at L1. T12-L1 L1-2 L2-3: No spinal canal neural foraminal narrowing. L3-4: Posterior disc bulge. Flattening of ventral thecal sac and mild narrowing of spinal canal. Mild narrowing of the right neural foramen. No narrowing of the left neural foramen. L4-5: Disc degeneration posted disc bulge. Mild narrowing of spinal canal. Mild narrowing of bilateral foramina. Moderate facet arthropathy. L5-S1: Disc degeneration posted disc bulge. No narrowing of the spinal canal. No impingement of the traversing S1 nerve roots. No neural foraminal narrowing. Mild facet arthropathy. Normal visualized SI joints. Procedure Note Parag Zhao MD, PhD - 02/21/2025 For Patients: As a result of the Cures Act, medical imagingexams and procedure reports are released immediately into your electronicmedical record. You may view this report before your referring provider.If you have questions, please contact your health care provider. INDICATION: Neurogenic claudication. Comparison 06/27/2024. Technique: Sagittal T1, T2, and STIR sequences. Axial T1 and T2 weighted sequences. FINDINGS: Normal vertebral body alignment. No fractures. No vertebral body loss ofheight. No ligamentous injury. No suspicious osseous lesions. Normal conusterminates at L1. T12-L1 L1-2 L2-3: No spinal canal neural foraminal narrowing. L3-4: Posterior disc bulge. Flattening of ventral thecal sac and mildnarrowing of spinal canal. Mild narrowing of the right neural foramen. Nonarrowing of the left neural foramen. L4-5: Disc degeneration posted disc bulge. Mild narrowing of spinal canal.Mild narrowing of bilateral foramina. Moderate facet arthropathy. L5-S1: Disc degeneration posted disc bulge. No narrowing of the spinalcanal. No impingement of the traversing S1 nerve roots. No neuralforaminal narrowing. Mild facet arthropathy. Normal visualized SI joints. IMPRESSION: 1. Normal alignment. No fractures. 2. Stable lumbar spondylosis. 3. At L3-4, mild narrowing of the right neural foramen 4. At L4-5, mild narrowing of the spinal canal and bilateral neuralforamina Dictated by Parag Zhao MD @ 02/21/2025 11:51:59 AM (Electronically Signed) Chance Sheth MD MR Final Result * AMB EPIDURAL STEROID INJECTION (12/31/2024 12:00 AM CDT) Kilo Daniels MD NEUROLOGY ORD Final Resu lt * ANTI HCV (01/31/2017 10:52 AM CDT) HEPATITIS C ANTIBODY Non-Reacti ve Non-Reacti ve 01/31/2017 5:52 PM CDT [facility] Blood BLOOD SPECIMEN / Unknown Venipuncture / Unknown 01/31/2017 10:52 AM CDT 01/31/2017 10:53 AM CDT Narrative [facility] - 01/31/2017 5:52 PM CDT Antibodies to HCV not detected; does not exclude the possibility of exposure to HCV. us Umberto Mendoza MD SEND OUTS Final Re sult [facility] [address] [place] [address], [place] from Last 3 Months or Most Recently Relevant to Health Maintenance Additional Health Concerns Active Problems Noted Date Diagnosed Date Autogenerated Problem 02/25/2025 Insurance [facility] MEDICARE ADVANTAGE MR MEDICARE PART A HB ONLY Advance Directives * Full Code (Latest Code Status on File) Date Activated Date Inactivated Comments 07/27/2023 6:03 AM 07/27/2023 4:45 PM Question Answer Comments Code Status Discussion: Unable to Assess Preferences, Provider to review later * Full Code Date Activated Date Inactivated Comments 07/08/2015 12:23 PM 07/10/2015 1:17 PM * Full Code Date Activated Date Inactivated Comments 07/08/2015 5:42 AM 07/08/2015 12:23 PM Care Teams Fitter And Turner Relationship Specialty Start Date End Date Natalia [place] [address] PCP - General Family Practice 07/25/23 Parag Romero MD [address] [id number] Cardiovascular Disease 10/02/24 Nurses, Advanced Heart Failure [address], [place] [id number] Advanced Heart Failure/Transplant Card 10/02/24
--- OUTSIDE RECORDS SUMMARY | 2025-03-11 10:43 | XMS_ITS | Data Portability ---
Author Organization ID - [facility] Address [address] [facility] [address] [place] [address] Care Team Providers Care Wharf Helper Name Role Phone BEAU MATHEWS Primary Care Provider Assessment No assessment recorded. Plan of Treatment Reminders Order Date Submit Date Provider Last Modified By Organization Details Last Modified Time Details Appointments PSA 10 2024 11:00A [facility] Not available Not available Not available ESTABL ISHED 2024 11:20A M Polo Robin MD Not available Not available Not available Lab PSA, serum or plasma 2024 025 [email or web address] ro [facility], [address], [place], [address], 02/26/2025 12:36:22 PSA, total, serum or plasma 2024 025 [email or web address] [facility], [address], [place], [address], 02/26/2025 13:06:04 urinal ysis, dipsti ck 2024 025 [email or web address] ro [facility], [address], [place], [address], 02/26/2025 12:36:23 PSA, serum or plasma 2023 024 [email or web address] ro [facility], [address], [place], [address], 08/28/2024 12:09:18 PSA, total, serum or plasma 2023 024 [email or web address] ro [facility], [address], [place], [address], 09/04/2024 09:13:16 urinal ysis, dipsti ck 2023 024 [email or web address] ro [facility], [address], [place], [address], 08/28/2024 12:09:18 PSA, total, serum or plasma 2023 024 [email or web address] [facility], [address], [place], [address], 05/29/2024 15:08:09 urinal ysis, dipsti ck 2023 024 [email or web address] [facility], [address], [place], [address], 05/29/2024 14:36:09 urinal ysis, dipsti ck 2023 024 [facility], [address], [place], [address], 02/08/2024 12:06:14 PSA, serum or plasma 2023 024 [facility], [address], [place], [address], 02/08/2024 12:06:14 urinal ysis, dipsti ck 2023 024 [facility], [address], [place], [address], 11/08/2023 16:59:22 PSA, serum or plasma 2023 024 [email or web address] [facility], [address], [place], [address], 11/08/2023 17:03:16 Referral None record ed. Procedures cystos copy (PROC) 2024 025 [email or web address] Not available 02/26/2025 13:06:38 cystos copy (PROC) 2023 024 [email or web address] Not available 08/28/2024 15:04:04 cystos copy (PROC) 2023 024 [email or web address] Not available 06/04/2024 09:59:10 cystos copy (PROC) 2023 024 rebbert Not available 02/07/2024 16:31:34 cystos copy (PROC) 2023 024 rebbert Not available 11/09/2023 07:53:28 Surgeries None record ed. Imaging None record ed. Medication Orders tadala kiki 5 mg tablet 2023 024 [email or web address] ro Not available 06/04/2024 10:19:20 tadala kiki 20 mg tablet 2023 024 [email or web address] Not available 02/26/2025 12:26:08 Patient TargetsNo targets recorded. Patient InstructionsNo instructions recorded. Reason for Referral None Reported. Results Created Date Observation Date Name Description Value Unit Range Abnormal Flag Note LastModifiedBy Organization Detail LastModifiedTime 11/08/1911/08/2023 PSA, serum or plasm a PSA 0.38 ng/mL 0-4.0 Not Available [facility] [address], [place], [address], 11/08/2023 17:02:46 11/08/19 24 11/08/2023 urina lysis , dipst ick Color-Status Yellow Not Available [facility] [address], [place], [address], 11/08/2023 16:58:35 11/08/19 24 11/08/2023 urina lysis , dipst ick Clarity-Stat us Clear Not Available [facility] [address], [place], [address], 11/08/2023 16:58:35 11/08/19 24 11/08/2023 urina lysis , dipst ick Glucose-Stat us Negati ve Not Available [facility] [address], [place], [address], 11/08/2023 16:58:35 11/08/19 24 11/08/2023 urina lysis , dipst ick Bilirubin-St atus Negati ve Not Available [facility] [address], [place], [address], 11/08/2023 16:58:35 11/08/19 24 11/08/2023 urina lysis , dipst ick Ketones-Stat us Negati ve Not Available [facility] [address], [place], [address], 11/08/2023 16:58:35 11/08/19 24 11/08/2023 urina lysis , dipst ick Nitrates-Sta tus negati ve Not Available [facility] [address], [place], [address], 11/08/2023 16:58:35 11/08/19 24 11/08/2023 urina lysis , dipst ick Blood-Status Negati ve Not Available [facility] [address], [place], [address], 11/08/2023 16:58:35 11/08/19 24 11/08/2023 urina lysis , dipst ick Leuko-Status Negati ve Not Available [facility] [address], [place], [address], 11/08/2023 16:58:35 02/07/20 24 02/07/2024 PSA, serum or plasm a PSA 0.24 ng/mL 0-4.0 NG/mL Not Available [facility] [address], [place], [address], 01/30/2024 12:05:48 02/07/20 24 02/07/2024 urina lysis , dipst ick BLOOD Negati ve Not Available [facility] [address], [place], [address], 01/30/2024 12:05:48 02/07/20 24 02/07/2024 urina lysis , dipst ick BILIRUBIN Negati ve Not Available [facility] [address], [place], [address], 01/30/2024 12:05:48 02/07/20 24 02/07/2024 urina lysis , dipst ick UROBILINOGEN 0.2 mg/dL (Norm) Not Available [facility] [address], [place], [address], 01/30/2024 12:05:48 02/07/20 24 02/07/2024 urina lysis , dipst ick KETONES Negati ve Not Available [facility] [address], [place], [address], 01/30/2024 12:05:48 02/07/20 24 02/07/2024 urina lysis , dipst ick PROTEIN Negati ve Not Available [facility] [address], [place], [address], 01/30/2024 12:05:48 02/07/20 24 02/07/2024 urina lysis , dipst ick NITRITES Negati ve Not Available [facility] [address], [place], [address], 01/30/2024 12:05:48 02/07/20 24 02/07/2024 urina lysis , dipst ick GLUCOSE Negati ve Not Available [facility] [address], [place], [address], 01/30/2024 12:05:48 02/07/20 24 02/07/2024 urina lysis , dipst ick p.H. 7.5 Not Available [facility] [address], [place], [address], 01/30/2024 12:05:48 02/07/20 24 02/07/2024 urina lysis , dipst ick S.G. (Specific [place]) 1.010 Not Available [facility] [address], [place], [address], 01/30/2024 12:05:48 02/07/20 24 02/07/2024 urina lysis , dipst ick LEUKOCYTES Negati ve Not Available [facility] [address], [place], [address], 01/30/2024 12:05:48 05/29/20 24 05/29/2024 urina lysis , dipst ick BLOOD Negati ve Not Available [facility] [address], [place], [address], 05/28/2024 12:05:48 05/29/20 24 05/29/2024 urina lysis , dipst ick BILIRUBIN Negati ve Not Available [facility] [address], [place], [address], 05/28/2024 12:05:48 05/29/20 24 05/29/2024 urina lysis , dipst ick UROBILINOGEN 0.2 mg/dL (Norm) Not Available [facility] [address], [place], [address], 05/28/2024 12:05:48 05/29/20 24 05/29/2024 urina lysis , dipst ick KETONES Negati ve Not Available [facility] [address], [place], [address], 05/28/2024 12:05:48 05/29/20 24 05/29/2024 urina lysis , dipst ick PROTEIN Negati ve Not Available [facility] [address], [place], [address], 05/28/2024 12:05:48 05/29/20 24 05/29/2024 urina lysis , dipst ick NITRITES Negati ve Not Available [facility] [address], [place], [address], 05/28/2024 12:05:48 05/29/20 24 05/29/2024 urina lysis , dipst ick GLUCOSE Negati ve Not Available [facility] [address], [place], [address], 05/28/2024 12:05:48 05/29/20 24 05/29/2024 urina lysis , dipst ick p.H. 8.0 Not Available [facility] [address], [place], [address], 05/28/2024 12:05:48 05/29/20 24 05/29/2024 urina lysis , dipst ick S.G. (Specific [place]) 1.010 Not Available [facility] [address], [place], [address], 05/28/2024 12:05:48 05/29/20 24 05/29/2024 urina lysis , dipst ick LEUKOCYTES Negati ve Not Available [facility] [address], [place], [address], 05/28/2024 12:05:48 08/28/2008/28/2024 urina lysis , dipst ick BLOOD Negati ve Not Available [facility] [address], [place], [address], 08/23/2024 12:31:41 08/28/20 24 08/28/2024 urina lysis , dipst ick BILIRUBIN Negati ve Not Available [facility] [address], [place], [address], 08/23/2024 12:31:41 08/28/20 24 08/28/2024 urina lysis , dipst ick UROBILINOGEN 0.2 mg/dL (Norm) Not Available [facility] [address], [place], [address], 08/23/2024 12:31:41 08/28/20 24 08/28/2024 urina lysis , dipst ick KETONES Negati ve Not Available [facility] [address], [place], [address], 08/23/2024 12:31:41 08/28/20 24 08/28/2024 urina lysis , dipst ick PROTEIN Negati ve Not Available [facility] [address], [place], [address], 08/23/2024 12:31:41 08/28/20 24 08/28/2024 urina lysis , dipst ick NITRITES Negati ve Not Available [facility] [address], [place], [address], 08/23/2024 12:31:41 08/28/20 24 08/28/2024 urina lysis , dipst ick GLUCOSE Negati ve Not Available [facility] [address], [place], [address], 08/23/2024 12:31:41 08/28/20 24 08/28/2024 urina lysis , dipst ick p.H. 7.0 Not Available [facility] [address], [place], [address], 08/23/2024 12:31:41 08/28/20 24 08/28/2024 urina lysis , dipst ick S.G. (Specific [place]) 1.010 Not Available [facility] [address], [place], [address], 08/23/2024 12:31:41 08/28/20 24 08/28/2024 urina lysis , dipst ick LEUKOCYTES Negati ve Not Available [facility] [address], [place], [address], 08/23/2024 12:31:41 08/28/20 24 08/28/2024 PSA, serum or plasm a PSA 0.36ng /mL 0-4.0 NG/mL Not Available [facility] [address], [place], [address], 08/28/2024 11:52:29 02/27/20 25 02/26/2025 PSA, serum or plasm a PSA 0.26ng /ml 0-4.0 NG/mL Not Available [facility] [address], [place], [address], 02/21/2025 16:23:46 02/27/20 25 02/26/2025 PSA, serum or plasm a PSA n 0-4.0 NG/mL Not Available [facility] [address], [place], [address], 02/21/2025 16:23:46 02/27/20 25 02/26/2025 urina lysis , dipst ick BLOOD Negati ve Not Available [facility] [address], [place], [address], 02/21/2025 16:23:46 02/27/20 25 02/26/2025 urina lysis , dipst ick BILIRUBIN Negati ve Not Available [facility] [address], [place], [address], 02/21/2025 16:23:46 02/27/20 25 02/26/2025 urina lysis , dipst ick UROBILINOGEN 0.2 mg/dL (Norm) Not Available [facility] [address], [place], [address], 02/21/2025 16:23:46 02/27/20 25 02/26/2025 urina lysis , dipst ick KETONES Negati ve Not Available [facility] [address], [place], [address], 02/21/2025 16:23:46 02/27/20 25 02/26/2025 urina lysis , dipst ick PROTEIN Negati ve Not Available [facility] [address], [place], [address], 02/21/2025 16:23:46 02/27/20 25 02/26/2025 urina lysis , dipst ick NITRITES Negati ve Not Available [facility] [address], [place], [address], 02/21/2025 16:23:46 02/27/20 25 02/26/2025 urina lysis , dipst ick GLUCOSE Negati ve Not Available [facility] [address], [place], [address], 02/21/2025 16:23:46 02/27/20 25 02/26/2025 urina lysis , dipst ick p.H. 5.5 Not Available [facility] [address], [place], [address], 02/21/2025 16:23:46 02/27/20 25 02/26/2025 urina lysis , dipst ick S.G. (Specific [place]) 1.010 Not Available [facility] [address], [place], [address], 02/21/2025 16:23:46 02/27/20 25 02/26/2025 urina lysis , dipst ick LEUKOCYTES Negati ve Not Available [facility] [address], [place], [address], 02/21/2025 16:23:46 Result Notes None recorded. Problems Name Problem SNOMED Code Status Onset Date Resolution Date Notes Provider Name and Address Organization Details Recorded Time Slowing of urinary stream 21026179 Active 2011 788.62 : SLOW STREAM Not Available formerly [facility] 0 02:01:02 Prostate specific antigen above reference range 224654738 Active 2011 790.93 : ELEVATED PSA Not Available formerly [facility] 0 02:01:02 Problem Notes None recorded. Procedures Surgical History Date Name Laterality Status Provider Name and Address Organization Details Recorded Time 02/27/20 25 Cystoscopy- male completed Polo Robin MD [address] [facility] [facility], [address], [facility] 02/26/2025 21:09:46 02/27/20 25 Keflex post Cysto completed [facility] 02/21/2025 16:25:22 02/27/20 25 PRESIDENT ERGONOMIC CONSULTING/blood draw completed [facility] ero [facility] 02/26/2025 12:36:13 02/27/20 25 Urinalysis completed [facility] 02/21/2025 16:25:05 02/27/20 25 Bladder Scan completed [facility] 02/26/2025 12:36:20 08/28/20 24 Cystoscopy- male completed Polo Robin MD [address] [facility] [facility],[address], [place], [address], [facility] 08/28/2024 13:55:40 08/28/20 24 Keflex post Cysto completed Miletzi [facility]-Sana ero [facility] 08/23/2024 12:31:26 08/28/20 24 PRESIDENT ERGONOMIC CONSULTING/blood draw completed Miletzi [facility]-Sana ero [facility] 08/28/2024 11:52:59 08/28/20 24 Urinalysis completed Miletzi [facility]-Sana ero [facility] 08/28/2024 11:52:53 08/28/20 24 Bladder Scan completed Polo Robin MD [address] [place] [address],[address], [place], [address], [facility] 08/28/2024 12:06:06 05/29/20 24 Cystoscopy- male completed Polo Robin MD [address] [place] [address],[address], [place], [address], [facility] 05/30/2024 20:23:44 05/29/20 24 Keflex post Cysto completed Miletzi [facility]-S[facility] ero [facility] 05/28/2024 12:06:26 05/29/20 24 Urinalysis completed Miletzi [facility] 05/28/2024 12:06:22 05/29/20 24 Bladder Scan completed Miletzi [facility]-Sana ero [facility] 05/29/2024 14:38:44 02/07/20 24 Cystoscopy- male completed Polo Robin MD [address] [place] [address],[address], [place], [address], [facility] 02/07/2024 18:30:17 02/07/20 24 COMPLEX VISIT completed Polo Robin MD [address] [place] [address],[address], [place], [address], [facility] 02/07/2024 18:31:45 02/07/20 24 Keflex post Cysto completed Miletzi [facility]-Sana ero [facility] 01/30/2024 12:06:28 02/07/20 24 PRESIDENT ERGONOMIC CONSULTING/blood draw completed Nisha Lambert [facility] 02/07/2024 14:45:53 02/07/20 24 Bladder Scan completed Nisha Lambert [facility] 02/07/2024 14:48:36 11/08/19 24 Cystoscopy- male completed Polo Robin MD [address] [place] [address],[address], [place], [address], [facility] 11/09/2023 22:08:26 11/08/19 24 Keflex post Cysto completed Polo Robin MD [address] [place] [address],[address], [place], [address], [facility] 11/08/2023 16:42:20 11/08/19 24 Bladder Scan completed Polo Robin MD [address] [place] [address],[address], [place], [address], [facility] 11/08/2023 16:58:30 08/16/20 23 Bladder Scan completed Vi Mitchell [facility] 08/16/2023 09:17:55 05/24/20 23 Cystoscopy- male completed Polo Robin MD [address] [place] [address],[address], [place], [address], [facility] 05/24/2023 23:02:14 05/24/20 23 Keflex post Cysto completed Vi Mitchell [facility] 05/24/2023 12:35:40 05/24/20 23 Bladder Scan completed Polo Robin MD [address] [place] [address],[address], [place], [address], [facility] 05/24/2023 12:15:49 12/18/19 23 Colonoscopy completed Polo Robin MD [address] [place] [address],[address], [place], [address], [facility] 05/24/2023 12:17:07 Prostatectomy completed Polo Robin MD [address] [place] [address],[address], [place], [address], [facility] 05/24/2023 12:18:08 tonsillectomy completed Polo Robin MD [address] [place] [address],[address], [place], [address], [facility] 05/24/2023 12:18:13 Appendectomy completed Polo Robin MD [address] [place] [address],[address], [place], [address], [facility] 05/24/2023 12:18:18 Orthopedic Surgery completed Polo Robin MD [address] [place] [address],[address], [address], [facility] 05/24/2023 12:18:30 Hernia Repair completed Polo Robin MD [address] [place] [address],[address], [place], [address], [facility] 05/24/2023 12:18:34 Imaging Results None recorded. Procedure Notes None recorded. Medical Equipment None Reported. Allergies Allergen ID Allergen Name Allergen Category Reaction Reaction Severity Criticality Documentation Date Start Date Code Code System Note Provider Name and Address Organization Details Recorded Time 920047 Substance with sulfonami de structure and antibacte rial mechanism of action (substanc e) medicatio n rash Not available Not available 05/24/20232018 35135 8003 SNOMED Hyacinth hanson [facility] 5 12:25:07 350543 Iodinated contrast media (substanc e) medicatio n dyspnea Not available Not available 05/24/20232024 57391 2003 SNOMED Hyacinth hanson [facility] 5 12:24:51 328528 azithromy eriberto medicatio n itching Not available Not available 02/26/20252014 72927 RxNorm Hyacinth hanson [facility] 5 12:24:36 768218 diatrizoa te meglumine medicatio n other Not available Not available 02/26/20252006 3320 RxNorm Sever e chest press ure with contr ast in . CT with contr ast in 2022 misti ated with preme dicat ion Hyacinth hanson [facility] 5 12:24:41 890922 erythromy eriberto medicatio n hives Not available Not available 02/26/20252023 4053 RxNorm Hyacinth hanson, [facility] 5 12:24:44 090902 gadodiami de medicatio n Not available Not available low 02/26/20252023 61095 RxNorm Hyacinth hanson, [facility] 5 12:24:47 435336 mold extract environme nt Not available Not available Not available 02/26/20252006 70335 8 RxNorm unrec ogniz ed react ion (text : *Unkn own, code: 03021 005) (from exter nal sour e) Hyacinth hanson, [facility] 5 12:24:55 377254 bacitraci n / neomycin / polymyxin B medicatio n itching Not available Not available 02/26/20252006 31078 9 RxNorm Hyacinth hanson, [facility] 5 12:24:58 552555 sulfameth oxazole medicatio n hives Not available Not available 02/26/20252023 75619 RxNorm Hyacinth hanson, [facility] 5 12:25:10 804520 trimethop rim medicatio n hives Not available Not available 02/26/20252023 73737 RxNorm Hyacinth hanson, [facility] 5 12:25:14 Medications Name Sig Start Date Stop Date Status Note LastModified by Organization Details LastModified Time prednisone 10 mg tablet PLEASE SEE ATTACHED FOR DETAILED DIRECTION S 02/26 completed Not Available Not Available Not Available cefuroxime axetil 250 mg tablet 08/16 completed Not Available Not Available Not Available loperamide 2 mg capsule TAKE 2TABS BY MOUTH WITH 1ST LOOSE STOOL, THEN 1TAB WITH EACH SUBSEQUEN T LOOSE STOOL.MAX :8TABS/24 HRS active Not Available Not Available No t Available tizanidine 4 mg tablet TAKE 1 TABLET EVERY 6 HOURS IF NEEDED FOR MUSCLE SPASM. MOSTLY USE AT NIGHT, WILL MAKE YOU DROWSY. active Not Available Not Available No t Available ergotamine 1 mg-caffeine 100 mg tablet as needed for migraines active Not Available Not Available No t Available methylpredn isolone 32 mg tablet TAKE 1 TABLET BY MOUTH [address] SCAN AND 1 TABLET BY MOUTH [address] SCAN 11/08 completed Not Available Not Available Not Available prednisone 20 mg tablet TAKE 2 TABS DAILY FOR 3 DAYS,THEN 1 TAB DAILY FOR 3 DAYS, THEN AND 1/2 TAB DAILY FOR 4 DAYS. 02/26 completed Not Available Not Available Not Available Zyrtec 10 mg tablet Take 1 tablet every day by oral route. active Not Available Not Available No t Available oxycodone-a cetaminophe n 5 mg-325 mg tablet 11/08 completed Not Available Not Available Not Available methylpredn isolone 8 mg tablet TAKE 4 TABS (32MG) BY MOUTH 12 HOURS BEFORE AND 2 HOURS BEFORE EXAM active Not Available Not Available No t Available gabapentin 300 mg capsule TAKE 1 CAPSULE BY MOUTH AT BEDTIME active Not Available Not Available No t Available aspirin 81 mg chewable tablet Chew 1 tablet every day by oral route. active Not Available Not Available No t Available azelastine 137 mcg (0.1 %) nasal spray INHALE 2 SPRAYS INTO AFFECTED NOSTRIL(S ) TWO TIMES DAILY. active Not Available Not Available No t Available fluticasone propionate 50 mcg/actuati on nasal spray,suspe nsion INHALE 1 SPRAY TO BOTH NOSTRILS TWO TIMES DAILY. 05/29 completed Not Available Not Available Not Available amoxicillin 875 mg-potassiu m clavulanate 125 mg tablet TAKE 1 TABLET BY MOUTH TWICE A DAY WITH FOOD 11/08 completed Not Available Not Available Not Available amoxicillin 500 mg-potassiu m clavulanate 125 mg tablet TAKE 1 TABLET BY MOUTH EVERY 12 HOURS 02/23 completed Not Available Not Available Not Available ciprofloxac in 0.3 %-dexametha sone 0.1 % ear drops,suspe nsion INSTILL 6 DROPS INTO THE RIGHT EAR(S) FOUR TIMES DAILY FOR 7 DAYS. 05/24 completed Not Available Not Available Not Available tadalafil 5 mg tablet Take 1 tablet every day by oral route. 2023 active Not Available Not Available Not Avai lable tadalafil 20 mg tablet Take 1 tablet as needed by oral route. 02/26 completed Not Available Not Available Not Available GaviLyte-G 236 gram-22.74 gram-6.74 gram-5.86 gram oral solution PLEASE SEE ATTACHED FOR DETAILED DIRECTION S 05/24 completed Not Available Not Available Not Available Paxlovid 300 mg (150 mg x 2)-100 mg tablets in a dose pack TAKE 3 TABLETS BY MOUTH TWICE A DAY FOR 5 DAYS 05/29 completed Not Available Not Available Not Available Vitals Date Recorded Body height Body mass index (BMI) Body weight Provider Name and Address Organization Details Last Updated DateTime 11/08/2023 177.8 cm 28 kg/m2 85470.51 g Polo Robin MD [address] [place] [address], [address] 11/08/2023 16:54:42 Date Recorded Body height Body mass index (BMI) Body weight Provider Name and Address Organization Details Last Updated DateTime 02/07/2024 177.8 cm 27.3 kg/m2 51847.55 g Nisha Lambert [facility] 02/07/2024 14:44:42 Date Recorded Body height Body mass index (BMI) Body weight Provider Name and Address Organization Details Last Updated DateTime 02/26/2025 177.8 cm 27.5 kg/m2 16232.74 g Hyacinth Vázquez [facility] 02/26/2025 12:24:24 Date Recorded Body height Body mass index (BMI) Body weight Provider Name and Address Organization Details Last Updated DateTime 05/29/2024 177.8 cm 27 kg/m2 99221.37 g Donna aly [facility] 05/29/2024 14:31:29 Date Recorded Body height Body mass index (BMI) Body weight Provider Name and Address Organization Details Last Updated DateTime 08/28/2024 177.8 cm 27 kg/m2 65512.37 g Polo Robin MD [address] [place] [address], [address] 08/28/2024 12:00:28 Social History Question Answer Notes LastModified by Organizat ion Details LastModified Time Tobacco Smoking Status Never Smoker Polo Robin MD [address] [place] [address],[address], [id number], [facility] 05/24/2023 12:17:51 What Is Your Level Of Caffeine Consumption? Moderate Information not available 05/24/2023 Recreational Drug Use No Information not available 11/08/2023 What Was The Date Of Your Most Recent Tobacco Screening? 02/26/2025 [email or web address] Information not available 02/26/2025 Have You Ever Been Counseled For Unhealthy Alcohol Use? No Information not available 08/28/2024 What Is Your Relationship Status? Information not available 11/08/2023 How Many Days In The Past Year Have You Consumed 5 Or More Drinks? 0 Information no t available 08/28/2024 Sex: Unknown Functional Status Question Answer Note LastModified by Organizat ion Details LastModified Time Do you use any illicit or recreational drugs? No Information not available 08/28/2024 Do you or have you ever used any other forms of tobacco or nicotine? No Information not available 08/28/2024 What is your level of alcohol consumption? Occasional Information not available 05/24/2023 Are you currently employed? No Information not available 11/08/2023 Mental Status None recorded. Family History Relationship Description Onset Age of this Age Resolved Age Notes LastModified by Organization Details LastModified Time Father Family history of cardiac disorder Not available 2022 12:17:23 Father Family history of malignant neoplasm lung/c olon Not available 05/24/2023 12:17:40 Mother Family history of cardiac disorder Not available 2022 12:17:23 Mother Family history of malignant neoplasm lung Not available 2022 12:17:40 Medical History Condition Response Diabetes N Other Y Cancer Y Kidney Stones N Immunizations Vaccine Type Date Status Note Provider Nam e and Address Organization Details Recorded Time Influenza, adjuvanted, quadrivalent, PF 3 completed Nisha hanson [facility] 02/07/2024 14:44:45 COVID-19, mRNA, LNP-S, PF, 50 mcg/0.5 mL 3 completed Nisha hanson [facility] 02/07/2024 14:44:46 RSV, recombinant, protein subunit RSVpreF, adjuvant reconstituted, 0.5 mL, PF 3 completed Donna hairston null, [facility] 05/29/2024 14:31:34 Influenza, adjuvanted, trivalent, PF 4 completed Not Available formerly [facility] 02/26/2025 12:02:53 COVID-19, mRNA, LNP-S, PF, 50 mcg/0.5 mL 4 completed Not Available formerly [facility] 02/26/2025 12:02:53 Influenza, adjuvanted, trivalent, PF 9 completed Polo Robin MD [address] [place] [address],[address], [place], [address], [facility] 05/24/2023 12:16:02 Influenza, adjuvanted, trivalent, PF 8 completed Polo Robin MD [address] [place] [address],[address], [place], [address], [facility] 05/24/2023 12:16:02 zoster recombinant 0 completed Polo Robin MD [address] [place] [address],[address], [place], [address], [facility] 05/24/2023 12:16:02 zoster recombinant 9 completed Polo Robin MD [address] [place] [address],[address], [place], [address], [facility] 05/24/2023 12:16:02 Influenza, adjuvanted, quadrivalent, PF 1 completed Polo Robin MD [address] [place] [address],[address], [place], [address], [facility] 05/24/2023 12:16:02 Influenza, adjuvanted, quadrivalent, PF 2 completed Polo Robin MD [address] [place] [address],[address], [place], [address], [facility] 05/24/2023 12:16:02 COVID-19, mRNA, LNP-S, PF, 30 mcg/0.3 mL dose 1 completed Polo Robin MD [address] [place] [address],[address], [place], [address], [facility] 05/24/2023 12:16:02 COVID-19, mRNA, LNP-S, PF, 30 mcg/0.3 mL dose 1 completed Polo Robin MD [address] [place] [address],[address], [place], [address], [facility] 05/24/2023 12:16:02 COVID-19, mRNA, LNP-S, PF, 30 mcg/0.3 mL dose 1 completed Polo Robin MD [address] [place] [address],[address], [place], [address], [facility] 05/24/2023 12:16:02 COVID-19, mRNA, LNP-S, PF, 30 mcg/0.3 mL dose, ryland-sucrose 2 completed Polo Robin MD [address] [place] [address],[address], [place], [address], [facility] 05/24/2023 12:16:02 COVID-19, mRNA, LNP-S, bivalent, PF, 30 mcg/0.3 mL dose 2 completed Polo Robin MD [address] [place] [address],[address], [place], [address], [facility] 05/24/2023 12:16:02 pneumococcal polysaccharide PPV23 4 completed Polo Robin MD [address] [place] [address],[address], [place], [address], [facility] 05/24/2023 12:16:02 Tdap 2 completed Polo Robin MD [address] [place] [address],[address], [place], [address], [facility] 05/24/2023 12:16:02 Pneumococcal conjugate PCV 13 5 completed Polo Robin MD [address] [place] [address],[address], [place], [address], [facility] 05/24/2023 12:16:02 zoster live 3 completed Polo Robin MD [address] [place] [address],[address], [place], [address], [facility] 05/24/2023 12:16:02 Influenza, high-dose, trivalent, PF 4 completed Polo Robin MD [address] [place] [address],[address], [place], [address], [facility] 05/24/2023 12:16:02 Influenza, high-dose, trivalent, PF 5 completed Polo Robin MD [address] [place] [address],[address], [place], [address], [facility] 05/24/2023 12:16:02 Influenza, high-dose, trivalent, PF 6 completed Polo Robin MD [address] [place] [address],[address], [place], [address], [facility] 05/24/2023 12:16:02 Influenza, high-dose, trivalent, PF 7 completed Polo Robin MD [address] [place] [address],[address], [place], [address], [facility] 05/24/2023 12:16:02 Influenza, split virus, trivalent, preservative 9 completed Polo Robin MD [address] [place] [address],[address], [place], [address], [facility] 05/24/2023 12:16:02 Influenza, split virus, trivalent, preservative 5 completed Polo Robin MD [address] [place] [address],[address], [place], [address], [facility] 05/24/2023 12:16:02 Past Encounters Encounter ID Performer Location Encounter Start Date Encounter Closed Date Diagnosis/Indication Diagnosis SNOMED-CT Code Diagnosis ICD10 Code Diagnosis Note [id number] MD JOSEPH [facility] [address] [address] 05/24/2023 11:57:04 05/31/2023 16:13:16 Blood in urine 60565658 R31.9 1. Gross hematuria- unable to assess bladder today due to BNC- recommend CT Urogram(laura rudd being assess for possible IV contrast allergy - 40 year ago)- plan to evaluate bladder - Cystoscopy with dilation of BNC Erectile dysfunction 860 726649 F52.21 3. Erectile dysfunctio n- due to prostate surgery- Viagra causes headaches- try Tadalafil 20 mg prn Acquired c ontracture of neck of urinary bladder 46216038 N32.0 2. Bladder neck contractur e (BNC)- likely cause of incomplete bladder emptying (PVR = 150 mL)- plan Cystoscopy with dilation of Bladder neck contractur e with Optilume balloon(ri sks include bleeding, infection, recurrence , and difficulty with incontinen ce) [id number] Polo Robin MD [facility] [address] [place] [address] 08/16/2023 09:06:41 08/18/2023 11:44:39 Acquired contracture of neck of urinary bladder 23528791 N32.0 1. Bladder neck contractur e (BNC)- s/p Dilation of BNC (Optilume) - (07/27/23)- check UCx- voiding well- incomplete bladder emptying (PVR = 160 mL)- check Bladder scan at Follow-up Erectile dysfunction 860 143148 F52.21 4. Erectile dysfunctio n- due to prostate surgery- Viagra causes headaches- try Tadalafil 20 mg prn Malignant neoplasm of urinary bladder [id number] C67.9 2. Bladder cancer - Urothelial carcinoma - LG Ta (no cis)- s/p TUR-BT (07/27/23) - LG Ta (no CIS) - near Left UO- Follow-up in 3 months with Cystoscopy Malignant neoplasm of prostate 124290611 C61 3. Prostate cancer - T2a No Mo - [place] 3+4 = 7- s/p RRP by Dr. Doherty (07/08/15) - negative margins(PS A has been detectable since surgery)- PSA (2.0) - stable- check PSA in April 2024 [id number] Polo Robin MD _[place] [address] [place] [address] 11/08/2023 16:11:34 11/16/2023 11:05:49 Acquired contracture of neck of urinary bladder 98480804 N32.0 3. Bladder neck contractur e (BNC)- s/p Dilation of BNC (Optilume) - (07/27/23)- voiding well- PVR = 32mL- check Bladder scan at Follow-up Malignant neoplasm of urinary bladder 985751617 C67.9 1. Bladder cancer - Urothelial carcinoma - LG Ta (no cis)- s/p TUR-BT (07/27/23) - LG Ta (no CIS) - near Left UO- Cystoscopy (11/08/23) - no tumors seen- Follow-up in 3 months with Cystoscopy Malignant neoplasm of prostate 723920112 C61 2. Prostate cancer - T2a No Mo - [place] 3+4 = 7- s/p RRP by Dr. Doherty (07/08/15) - negative margins(PS A has been detectable since surgery)- PSA (0.38) - slight increase - monitor- check PSA in April 2024 Erectile dysfunction 860 523168 F52.21 4. Erectile dysfunctio n- due to prostate surgery- Viagra causes headaches- try Tadalafil 20 mg prn [id number] Polo Robin MD [facility] [address] [place] [address] 02/07/2024 14:21:44 02/16/2024 10:42:03 Malignant neoplasm of urinary bladder 814530635 C67.9 1. Bladder cancer - Urothelial carcinoma - LG Ta (no cis)- s/p TUR-BT (07/27/23) - LG Ta (no CIS) - near Left UO- Cystoscopy (02/07/24) - no tumors seen- Follow-up in 3 months with Cystoscopy Malignant neoplasm of prostate 033483236 C61 2. Prostate cancer - T2a No Mo - [place] 3+4 = 7- s/p RRP by Dr. Doherty (07/08/15) - negative margins(PS A has been detectable since surgery)- PSA (0.24) - slight decrease - monitor- check PSA in July 2024 Acquired c ontracture of neck of urinary bladder 08678857 N32.0 3. Bladder neck contractur e (BNC)- s/p Dilation of BNC (Optilume) - (07/27/23)- open BNC- voiding well - PVR = 34mL- check Bladder scan at Follow-up Erectile dysfunction 860 599770 F52.21 H/O Erectile dysfunctio n- due to prostate surgery- Viagra causes headaches- continue Tadalafil 20 mg prn [id number] Polo Robin MD [address] [place] [address] 05/29/2024 14:08:37 06/03/2024 16:14:05 Malignant neoplasm of urinary bladder 910163895 C67.9 1. Bladder cancer - Urothelial carcinoma - LG Ta (no cis)- s/p TUR-BT (07/27/23) - LG Ta (no CIS) - near Left UO- Cystoscopy (05/29/24) - no tumors seen- Follow-up in 3 months with Cystoscopy Malignant neoplasm of prostate 501257471 C61 H/O Prostate cancer - T2a No Mo - [place] 3+4 = 7- s/p RRP by Dr. Doherty (07/08/15) - negative margins(PS A has been detectable since surgery)- PSA (0.24) - slight decrease - monitor- check PSA in August 2024 Acquired c ontracture of neck of urinary bladder 37424903 N32.0 3. Bladder neck contractur e (BNC)- s/p Dilation of BNC (Optilume) - (07/27/23)- open BNC- voiding well - PVR = 34mL- check Bladder scan at Follow-up Erectile dysfunction 860 316240 F52.21 H/O Erectile dysfunctio n- due to prostate surgery(Vi agra causes headaches) - continue Tadalafil 20 mg prn Lower urin chance tract symptoms due to benign prostatic hypertrophy [id number] 9101 N40.1 4. Slow stream- will try Cialis 5 mg daily(may not help give his prostate has been removed) [id number] Polo Robin MD _[place] [address] [place], [place] [address] 08/28/2024 11:36:17 08/30/2024 11:14:18 Malignant neoplasm of urinary bladder 743978247 C67.9 1. Bladder cancer - Urothelial carcinoma - LG Ta (no cis)- s/p TUR-BT (07/27/23) - LG Ta (no CIS) - near Left UO- Cystoscopy (08/28/24) - no tumors seen- Follow-up in 6 months with Cystoscopy Malignant neoplasm of prostate 109342542 C61 H/O Prostate cancer - T2a No Mo - [place] 3+4 = 7- s/p RRP by Dr. Doherty (07/08/15) - negative margins(PS A has been detectable since surgery)- PSA (0.36) - slight increase - monitor- check PSA in 6 months Acquired c ontracture of neck of urinary bladder 14423760 N32.0 3. Bladder neck contractur e (BNC)- s/p Dilation of BNC (Optilume) - (07/27/23)- open BNC- voiding well - PVR = 47mL- check Bladder scan at Follow-up Lower urin chance tract symptoms due to benign prostatic hypertrophy [id number] 9101 N40.1 4. Slow stream- continue Cialis 5 mg daily Erectile dysfunction 860 853444 F52.21 H/O Erectile dysfunctio n- due to prostate surgery(Vi agra causes headaches) - continue Tadalafil 20 mg prn [id number] Polo Robin MD [facility] [address] [place] [address] 02/26/2025 11:59:31 03/05/2025 09:24:37 Malignant neoplasm of urinary bladder 754706681 C67.9 1. Bladder cancer - Urothelial carcinoma - LG Ta (no cis)- s/p TUR-BT (07/27/23) - LG Ta (no CIS) - near Left UO- Cystoscopy (02/26/25) - no tumors seen- Follow-up in 6 months with Cystoscopy Malignant neoplasm of prostate 192618146 C61 H/O Prostate cancer - T2a No Mo - [place] 3+4 = 7- s/p RRP by Dr. Doherty (07/08/15) - negative margins(PS A has been detectable since surgery)- PSA (0.26) - slight decrease - monitor- check PSA in 6 months Acquired c ontracture of neck of urinary bladder 57530792 N32.0 3. Bladder neck contractur e (BNC)- s/p Dilation of BNC (Optilume) - (07/27/23)- open BNC- voiding well - PVR = 129 mL- check Bladder scan at Follow-up Lower urin chance tract symptoms due to benign prostatic hypertrophy [id number] 9101 N40.1 4. Slow stream- continue Cialis 5 mg daily Erectile dysfunction 860 923604 F52.21 H/O Erectile dysfunctio n- due to prostate surgery(Vi agra causes headaches) - continue Tadalafil 20 mg prn Health Concerns Section Related Observation LastModified by Organization Detai ls LastModified Time None Recorded Concern Status LastModified by Organization Details LastModified Time None Recorded Advance Directives Directive None Recorded Payers Insurance Date Sequence Insurance Name Policy Number Policy Kramer Covered Member ID Kramer Member ID Guarantor Name 03/05/2025 1 [employer] - DOS ON OR AFTER 19 (MEDICARE REPLACEMENT/ ADVANTAGE - HMO) [id number] 1 Kapil Huizar [id number] Kapil Huizar 05/29/2024 1 [employer] (PPO) [id number] 1 Kapil Huizar [id number] Kapil Huizar Notes Date Note Type Note Provider Name and Address Organization Details Recorded Time 11/08/2023 text/html 73 yo male with history of Prostate cancer, paroxysmal A.fib (ASA 81 mg), hyperlipidemia, ASTRID, and migraine headaches, He has difficulty obtaining and maintaining erections. He tried Viagra (caused a headache). He has occasional leakage with sneeze / cough. - s/p TURP - (04/18/13)Prostate cancer - T2a No Mo - [place] 3+4 = 7- s/p RRP by Dr. Doherty (07/08/15) - negative margins(PSA has been detectable since surgery) Bladder cancer - LG Ta urothelial carcinoma (non-invasive) - no CIS- s/p TUR-BT and Dilation (Optilume) of BNC - (07/27/23) - by Left UO 08/16/23 - He presents for follow-up on urination / BNC dilation. He voids every 1-3 hours during the day and 0-1x/night. He denies hesitancy, urgency, or dysuria. He reports good flow. 11/08/23 - He presents for follow-up on urination and bladder cancer. He voids every 1-3 hours during the day and 0-1x/night.- UA - no blood - no LE- PVR = 32 mL- PSA - 0.38 PSA - 3.21 (04/07/15)- 0.60 (08/19/15)- 0.38 (09/09/15)- 0.35 (10/30/15)- 0.18 (02/10/16)- 0.28 (10/07/16)- 0.24 (04/20/17)- 0.26 (02/13/18)- 0.17 (08/23/18)- 0.20 (03/26/19)- 0.26 (10/08/19)- 0.28 (07/20/21)- 0.24 (07/20/22)- 0.20 (04/21/23)- 0.38 (11/08/23) CT Urogram (06/08/23) - Left - 5 mm stone (lower pole) - Bilateral renal cysts- Bladder 1 cm tumor (Left floor) Polo Robin MD [address] [place] [address],[facility] [address], [place], [address], [facility] 11/09/2023 22:09:05 02/07/2024 text/html 73 yo male with history of Prostate cancer, paroxysmal A.fib (ASA 81 mg), hyperlipidemia, ASTRID, and migraine headaches, He has difficulty obtaining and maintaining erections. He tried Viagra (caused a headache). He has occasional leakage with sneeze / cough. - s/p TURP - (04/18/13)Prostate cancer - T2a No Mo - [place] 3+4 = 7- s/p RRP by Dr. Doherty (07/08/15) - negative margins(PSA has been detectable since surgery) Bladder cancer - LG Ta urothelial carcinoma (non-invasive) - no CIS- s/p TUR-BT and Dilation (Optilume) of BNC - (07/27/23) - by Left UO 08/16/23 - He presents for follow-up on urination / BNC dilation. He voids every 1-3 hours during the day and 0-1x/night. He denies hesitancy, urgency, or dysuria. He reports good flow. 11/08/23 - He presents for follow-up on urination and bladder cancer. He voids every 1-3 hours during the day and 0-1x/night. 02/07/24 - He presents for follow-up on urination and bladder cancer. He voids every 1-3 hours during the day and 0-1x/night. He denies urgency, dysuria, or gross hematuria.- UA - no blood - no LE- PVR =34 mL- PSA - 0.24 PSA - 3.21 (04/07/15)- 0.60 (08/19/15)- 0.38 (09/09/15)- 0.35 (10/30/15)- 0.18 (02/10/16)- 0.28 (10/07/16)- 0.24 (04/20/17)- 0.26 (02/13/18)- 0.17 (08/23/18)- 0.20 (03/26/19)- 0.26 (10/08/19)- 0.28 (07/20/21)- 0.24 (07/20/22)- 0.20 (04/21/23)- 0.38 (11/08/23)- 0.24 (02/07/24) CT Urogram (06/08/23) - Left - 5 mm stone (lower pole) - Bilateral renal cysts- Bladder 1 cm tumor (Left floor) Polo Robin MD [address] [facility],[address], [place], [address], [facility] 02/07/2024 18:32:08 05/29/2024 text/html 73 yo male with history of Prostate cancer, paroxysmal A.fib (ASA 81 mg), hyperlipidemia, ASTRID, and migraine headaches, He has difficulty obtaining and maintaining erections. He tried Viagra (caused a headache). He has occasional leakage with sneeze / cough. - s/p TURP - (04/18/13)Prostate cancer - T2a No Mo - [place] 3+4 = 7- s/p RRP by Dr. Doherty (07/08/15) - negative margins(PSA has been detectable since surgery) Bladder cancer - LG Ta urothelial carcinoma (non-invasive) - no CIS- s/p TUR-BT and Dilation (Optilume) of BNC - (07/27/23) - by Left UO 08/16/23 - He presents for follow-up on urination / BNC dilation. He voids every 1-3 hours during the day and 0-1x/night. He denies hesitancy, urgency, or dysuria. He reports good flow. 11/08/23 - He presents for follow-up on urination and bladder cancer. He voids every 1-3 hours during the day and 0-1x/night. 02/07/24 - He presents for follow-up on urination and bladder cancer. He voids every 1-3 hours during the day and 0-1x/night. He denies urgency, dysuria, or gross hematuria. 05/29/24-He presents for follow-up on urination and bladder cancer. He voids every 1-3 hours during the day and 0-1x/night. He denies hematuria.- UA - no blood - no LE- PVR = 97 ____PSA - 3.21 (04/07/15)- 0.60 (08/19/15)- 0.38 (09/09/15)- 0.35 (10/30/15)- 0.18 (02/10/16)- 0.28 (10/07/16)- 0.24 (04/20/17)- 0.26 (02/13/18)- 0.17 (08/23/18)- 0.20 (03/26/19)- 0.26 (10/08/19)- 0.28 (07/20/21)- 0.24 (07/20/22)- 0.20 (04/21/23)- 0.38 (11/08/23)- 0.24 (02/07/24) CT Urogram (06/08/23) - Left - 5 mm stone (lower pole) - Bilateral renal cysts- Bladder 1 cm tumor (Left floor) Polo Robin MD [address] [place] [address],[address], [place], [address], [facility] 05/30/2024 20:31:02 08/28/2024 text/html 74 yo male with history of Prostate cancer, paroxysmal A.fib (ASA 81 mg), hyperlipidemia, ASTRID, and migraine headaches, He has difficulty obtaining and maintaining erections. He tried Viagra (caused a headache). He has occasional leakage with sneeze / cough. - s/p TURP - (04/18/13)Prostate cancer - T2a No Mo - Liz 3+4 = 7- s/p RRP by Dr. Doherty (07/08/15) - negative margins(PSA has been detectable since surgery) Bladder cancer - LG Ta urothelial carcinoma (non-invasive) - no CIS- s/p TUR-BT and Dilation (Optilume) of BNC - (07/27/23) - by Left UO 11/08/23 - He presents for follow-up on urination and bladder cancer. He voids every 1-3 hours during the day and 0-1x/night. 02/07/24 - He presents for follow-up on urination and bladder cancer. He voids every 1-3 hours during the day and 0-1x/night. He denies urgency, dysuria, or gross hematuria. 05/29/24-He presents for follow-up on urination and bladder cancer. He voids every 1-3 hours during the day and 0-1x/night. He denies hematuria. 08/28/24 - He presents for follow-up on urination and bladder cancer. He voids every 1-3 hours during the day and 0-1x/night. He denies hematuria.- UA - no blood - no LE- PVR = 47 mL- PSA - 0.36 PSA - 3.21 (04/07/15)- 0.60 (08/19/15)- 0.38 (09/09/15)- 0.35 (10/30/15)- 0.18 (02/10/16)- 0.28 (10/07/16)- 0.24 (04/20/17)- 0.26 (02/13/18)- 0.17 (08/23/18)- 0.20 (03/26/19)- 0.26 (10/08/19)- 0.28 (07/20/21)- 0.24 (07/20/22)- 0.20 (04/21/23)- 0.38 (11/08/23)- 0.24 (02/07/24)- 0.36 (08/28/24) CT Urogram (06/08/23) - Left - 5 mm stone (lower pole) - Bilateral renal cysts- Bladder 1 cm tumor (Left floor) Polo Robin MD [address] [facility],[address], [place], [address], [facility] 08/28/2024 13:59:05 02/26/2025 text/html 74 yo male with history of Prostate cancer, paroxysmal A.fib (ASA 81 mg), hyperlipidemia, ASTRID, and migraine headaches, He has difficulty obtaining and maintaining erections. He tried Viagra (caused a headache). He has occasional leakage with sneeze / cough. - s/p TURP - (04/18/13)Prostate cancer - T2a No Mo - Liz 3+4 = 7- s/p RRP by Dr. Doherty (07/08/15) - negative margins(PSA has been detectable since surgery) Bladder cancer - LG Ta urothelial carcinoma (non-invasive) - no CIS- s/p TUR-BT and Dilation (Optilume) of C - (07/27/23) - by Left UO 05/29/24 -He presents for follow-up on urination and bladder cancer. He voids every 1-3 hours during the day and 0-1x/night. He denies hematuria. 08/28/24 - He presents for follow-up on urination and bladder cancer. He voids every 1-3 hours during the day and 0-1x/night. He denies hematuria. 02/26/25-He presents for follow-up on urination, bladder cancer, and Prostate cancer. He voids every 1-3 hours during the day and 0-1x/night. He denies hematuria.- PSA - 0.26- PVR = 129 mL- UA -no blood - no Le ____PSA - 3.21 (04/07/15)- 0.60 (08/19/15)- 0.38 (09/09/15)- 0.35 (10/30/15)- 0.18 (02/10/16)- 0.28 (10/07/16)- 0.24 (04/20/17)- 0.26 (02/13/18)- 0.17 (08/23/18)- 0.20 (03/26/19)- 0.26 (10/08/19)- 0.28 (07/20/21)- 0.24 (07/20/22)- 0.20 (04/21/23)- 0.38 (11/08/23)- 0.24 (02/07/24)- 0.36 (08/28/24)- 0.26 (02/26/25) CT Urogram (06/08/23) - Left - 5 mm stone (lower pole) - Bilateral renal cysts- Bladder 1 cm tumor (Left floor) Polo Robin MD [address] [facility],[address], [place], [address], [facility] 02/26/2025 21:10:58
--- OUTSIDE RECORDS SUMMARY | 2025-03-12 00:40 | XMS_ITS | Data Portability ---
Author Organization [place] [facility] Address [address] [place] [address] Care Team Providers Care Director Electrical Engineering Name Role Phone BEAU MATHEWS Primary Care [...] [email or web address] ro [facility], [address], [place], [address], 02/26/2025 12:36:22 PSA, total, serum or plasma 2024 025 [email or web address] [facility], [address], [place], [address], 02/26/2025 13:06:04 urinal ysis, dipsti ck 2024 025 [email or web address] ro [facility], [address], [place], [address], 02/26/2025 12:36:23 PSA, serum or plasma 2023 024 [email or web address] ro [facility], [address], [place], [address], 08/28/2024 12:09:18 PSA, total, serum or plasma 2023 024 [email or web address] ro [facility], [address], [place], [address], 09/04/2024 09:13:16 urinal ysis, dipsti ck 2023 024 [email or web address] ro [facility], [address], [place], [address], 08/28/2024 12:09:18 PSA, total, serum or plasma 2023 024 [facility], [address], [place], [address], 05/29/2024 15:08:09 urinal ysis, dipsti ck 2023 024 [email or web address] [facility], [address], [place], [address], 05/29/2024 14:36:09 urinal ysis, dipsti ck 2023 024 [facility], [address], [place], [address], 02/08/2024 12:06:14 PSA, serum or plasma 2023 024 [facility], [address], [place], [address], 02/08/2024 12:06:14 urinal ysis, dipsti ck 2023 024 [facility], [address], [place], [address], 11/08/2023 16:59:22 PSA, serum or plasma 2023 024 [email or web address] [facility], [address], [place], [address], 11/08/2023 17:03:16 Referral None record ed. Procedures [...] tadala kiki 20 mg tablet 2023 024 Not available 02/26/2025 12:26:08 Patient TargetsNo targets recorded. Patient InstructionsNo instructions recorded. Reason for Referral None Reported. Results Created Date Observation Date Name Description Value Unit Range Abnormal Flag Note LastModifiedBy Organization Detail LastModifiedTime 11/08/1911/08/2023 PSA, serum or plasm a PSA 0.38 ng/mL 0-4.0 Not Available [facility] [address], [place], [address], 11/08/2023 17:02:46 11/08/19 24 11/08/2023 urina lysis , dipst ick Color-Status Yellow Not Available [facility] [address], [place], [address], 11/08/2023 16:58:35 11/08/19 24 11/08/2023 urina lysis , dipst ick Clarity-Stat us Clear Not Available [facility] [address], [place], [address], 11/08/2023 16:58:35 11/08/19 24 11/08/2023 urina lysis , dipst ick Glucose-Stat us Negati ve Not Available [facility] [address], [place], [address], 11/08/2023 16:58:35 11/08/19 24 11/08/2023 urina lysis , dipst ick Bilirubin-St atus Negati ve Not Available [facility] [address], [place], [address], 11/08/2023 16:58:35 11/08/19 24 11/08/2023 urina lysis , dipst ick Ketones-Stat us Negati ve Not Available [facility] [address], [place], [address], 11/08/2023 16:58:35 11/08/19 24 11/08/2023 urina lysis , dipst ick Nitrates-Sta tus negati ve Not Available [facility] [address], [place], [address], 11/08/2023 16:58:35 11/08/19 24 11/08/2023 urina lysis , dipst ick Blood-Status Negati ve Not Available [facility] [address], [place], [address], 11/08/2023 16:58:35 11/08/19 24 11/08/2023 urina lysis , dipst ick Leuko-Status Negati ve Not Available [facility] [address], [place], [address], 11/08/2023 16:58:35 02/07/20 24 02/07/2024 PSA, serum or plasm a PSA 0.24 ng/mL 0-4.0 NG/mL Not Available [facility] [address], [place], [address], 01/30/2024 12:05:48 02/07/20 24 02/07/2024 urina lysis , dipst ick BLOOD Negati ve Not Available [facility] [address], [place], [address], 01/30/2024 12:05:48 02/07/20 24 02/07/2024 urina lysis , dipst ick BILIRUBIN Negati ve Not Available [facility] [address], [place], [address], 01/30/2024 12:05:48 02/07/20 24 02/07/2024 urina lysis , dipst ick UROBILINOGEN 0.2 mg/dL (Norm) Not Available [facility] [address], [place], [address], 01/30/2024 12:05:48 02/07/20 24 02/07/2024 urina lysis , dipst ick KETONES Negati ve Not Available [facility] [address], [place], [address], 01/30/2024 12:05:48 02/07/20 24 02/07/2024 urina lysis , dipst ick PROTEIN Negati ve Not Available [facility] [address], [place], [address], 01/30/2024 12:05:48 02/07/20 24 02/07/2024 urina lysis , dipst ick NITRITES Negati ve Not Available [facility] [address], [place], [address], 01/30/2024 12:05:48 02/07/20 24 02/07/2024 urina lysis , dipst ick GLUCOSE Negati ve Not Available [facility] [address], [place], [address], 01/30/2024 12:05:48 02/07/20 24 02/07/2024 urina lysis , dipst ick p.H. 7.5 Not Available [facility] [address], [place], [address], 01/30/2024 12:05:48 02/07/20 24 02/07/2024 urina lysis , dipst ick S.G. (Specific [place]) 1.010 Not Available [facility] [address], [place], [address], 01/30/2024 12:05:48 02/07/20 24 02/07/2024 urina lysis , dipst ick LEUKOCYTES Negati ve Not Available [facility] [address], [place], [address], 01/30/2024 12:05:48 05/29/20 24 05/29/2024 urina lysis , dipst ick BLOOD Negati ve Not Available [facility] [address], [place], [address], 05/28/2024 12:05:48 05/29/20 24 05/29/2024 urina lysis , dipst ick BILIRUBIN Negati ve Not Available [facility] [address], [place], [address], 05/28/2024 12:05:48 05/29/20 24 05/29/2024 urina lysis , dipst ick UROBILINOGEN 0.2 mg/dL (Norm) Not Available [facility] [address], [place], [address], 05/28/2024 12:05:48 05/29/20 24 05/29/2024 urina lysis , dipst ick KETONES Negati ve Not Available [facility] [address], [place], [address], 05/28/2024 12:05:48 05/29/20 24 05/29/2024 urina lysis , dipst ick PROTEIN Negati ve Not Available [facility] [address], [place], [address], 05/28/2024 12:05:48 05/29/20 24 05/29/2024 urina lysis , dipst ick NITRITES Negati ve Not Available [facility] [address], [place], [address], 05/28/2024 12:05:48 05/29/20 24 05/29/2024 urina lysis , dipst ick GLUCOSE Negati ve Not Available [facility] [address], [place], [address], 05/28/2024 12:05:48 05/29/20 24 05/29/2024 urina lysis , dipst ick p.H. 8.0 Not Available [facility] [address], [place], [address], 05/28/2024 12:05:48 05/29/20 24 05/29/2024 urina lysis , dipst ick S.G. (Specific [place]) 1.010 Not Available [facility] [address], [place], [address], 05/28/2024 12:05:48 05/29/20 24 05/29/2024 urina lysis , dipst ick LEUKOCYTES Negati ve Not Available [facility] [address], [place], [address], 05/28/2024 12:05:48 08/28/2008/28/2024 urina lysis , dipst ick BLOOD Negati ve Not Available [facility] [address], [place], [address], 08/23/2024 12:31:41 08/28/20 24 08/28/2024 urina lysis , dipst ick BILIRUBIN Negati ve Not Available [facility] [address], [place], [address], 08/23/2024 12:31:41 08/28/20 24 08/28/2024 urina lysis , dipst ick UROBILINOGEN 0.2 mg/dL (Norm) Not Available [facility] [address], [place], [address], 08/23/2024 12:31:41 08/28/20 24 08/28/2024 urina lysis , dipst ick KETONES Negati ve Not Available [facility] [address], [place], [address], 08/23/2024 12:31:41 08/28/20 24 08/28/2024 urina lysis , dipst ick PROTEIN Negati ve Not Available [facility] [address], [place], [address], 08/23/2024 12:31:41 08/28/20 24 08/28/2024 urina lysis , dipst ick NITRITES Negati ve Not Available [facility] [address], [place], [address], 08/23/2024 12:31:41 08/28/20 24 08/28/2024 urina lysis , dipst ick GLUCOSE Negati ve Not Available [facility] [address], [place], [address], 08/23/2024 12:31:41 08/28/20 24 08/28/2024 urina lysis , dipst ick p.H. 7.0 Not Available [facility] [address], [place], [address], 08/23/2024 12:31:41 08/28/20 24 08/28/2024 urina lysis , dipst ick S.G. (Specific [place]) 1.010 Not Available [facility] [address], [place], [address], 08/23/2024 12:31:41 08/28/20 24 08/28/2024 urina lysis , dipst ick LEUKOCYTES Negati ve Not Available [facility] [address], [place], [address], 08/23/2024 12:31:41 08/28/20 24 08/28/2024 PSA, serum or plasm a PSA 0.36ng /mL 0-4.0 NG/mL Not Available [facility] [address], [place], [address], 08/28/2024 11:52:29 02/27/20 25 02/26/2025 PSA, serum or plasm a PSA 0.26ng /ml 0-4.0 NG/mL Not Available [facility] [address], [place], [address], 02/21/2025 16:23:46 02/27/20 25 02/26/2025 PSA, serum or plasm a PSA n 0-4.0 NG/mL Not Available [facility] [address], [place], [address], 02/21/2025 16:23:46 02/27/20 25 02/26/2025 urina lysis , dipst ick BLOOD Negati ve Not Available [facility] [address], [place], [address], 02/21/2025 16:23:46 02/27/20 25 02/26/2025 urina lysis , dipst ick BILIRUBIN Negati ve Not Available [facility] [address], [place], [address], 02/21/2025 16:23:46 02/27/20 25 02/26/2025 urina lysis , dipst ick UROBILINOGEN 0.2 mg/dL (Norm) Not Available [facility] [address], [place], [address], 02/21/2025 16:23:46 02/27/20 25 02/26/2025 urina lysis , dipst ick KETONES Negati ve Not Available [facility] [address], [place], [address], 02/21/2025 16:23:46 02/27/20 25 02/26/2025 urina lysis , dipst ick PROTEIN Negati ve Not Available [facility] [address], [place], [address], 02/21/2025 16:23:46 02/27/20 25 02/26/2025 urina lysis , dipst ick NITRITES Negati ve Not Available [facility] [address], [place], [address], 02/21/2025 16:23:46 02/27/20 25 02/26/2025 urina lysis , dipst ick GLUCOSE Negati ve Not Available [facility] [address], [place], [address], 02/21/2025 16:23:46 02/27/20 25 02/26/2025 urina lysis , dipst ick p.H. 5.5 Not Available [facility] [address], [place], [address], 02/21/2025 16:23:46 02/27/20 25 02/26/2025 urina lysis , dipst ick S.G. (Specific [place]) 1.010 Not Available [facility] [address], [place], [address], 02/21/2025 16:23:46 02/27/20 25 02/26/2025 urina lysis , dipst ick LEUKOCYTES Negati ve Not Available [facility] [address], [place], [address], 02/21/2025 16:23:46 Result Notes None recorded. Problems Name Problem SNOMED Code Status Onset Date Resolution Date Notes Provider Name and Address Organization Details Recorded Time Slowing of urinary stream 29903659 Active 2011 788.62 : SLOW STREAM Not Available [facility] 0 02:01:02 Prostate specific antigen above reference range 924204924 Active 2011 790.93 : ELEVATED PSA Not Available [facility] 0 02:01:02 Problem Notes None recorded. Procedures Surgical History Date Name Laterality Status Provider Name and Address Organization Details Recorded Time 02/27/20 25 Cystoscopy- male completed Polo Robin MD [address], [place], [address], [facility] 02/26/2025 21:09:46 02/27/20 25 Keflex post Cysto completed [facility] 02/21/2025 16:25:22 02/27/20 25 FERMENTER WINE/blood draw completed [facility] 02/26/2025 12:36:13 02/27/20 25 Urinalysis completed [facility] 02/21/2025 16:25:05 02/27/20 25 Bladder Scan completed [facility] 02/26/2025 12:36:20 08/28/20 24 Cystoscopy- male completed Polo Robin MD [address], [place], [address], [facility] 08/28/2024 13:55:40 08/28/20 24 Keflex post Cysto completed Miletzi [facility] 08/23/2024 12:31:26 08/28/20 24 FERMENTER WINE/blood draw completed Miletzi [facility] 08/28/2024 11:52:59 08/28/20 24 Urinalysis completed Miletzi [facility] 08/28/2024 11:52:53 08/28/20 24 Bladder Scan completed Polo Robin MD [address] [place] [address],[address], [place], [address], [facility] 08/28/2024 12:06:06 05/29/20 24 Cystoscopy- male completed Polo Robin MD [address] [place] [address],[address], [place], [address], [facility] 05/30/2024 20:23:44 05/29/20 24 Keflex post Cysto completed Miletzi [facility] 05/28/2024 12:06:26 05/29/20 24 Urinalysis completed Miletzi [facility] 05/28/2024 12:06:22 05/29/20 24 Bladder Scan completed Miletzi [facility] 05/29/2024 14:38:44 02/07/20 24 Cystoscopy- male completed Polo Robin MD [address] [place] [address],[address], [place], [address], [facility] 02/07/2024 18:30:17 02/07/20 24 COMPLEX VISIT completed Polo Robin MD [address] [place] [address],[address], [place], [address], [facility] 02/07/2024 18:31:45 02/07/20 24 Keflex post Cysto completed Miletzi [facility] 01/30/2024 12:06:28 02/07/20 24 FERMENTER WINE/blood draw completed Nisha Lambert [facility] 02/07/2024 14:45:53 02/07/20 24 Bladder Scan completed Nisha Lambert [facility] 02/07/2024 14:48:36 11/08/19 24 Cystoscopy- male completed Polo Robin MD [address] [place] [address],[address], [place], [address], [facility] 11/09/2023 22:08:26 11/08/19 24 Keflex post Cysto completed Polo Robin MD [address] [place] [address],[address], [place], [address], [facility] 11/08/2023 16:42:20 11/08/19 24 Bladder Scan completed oPlo Robin MD [address] [place] [address],[address], [place], [address], [facility] 11/08/2023 16:58:30 08/16/20 23 Bladder Scan completed Vi Mitchell [facility] 08/16/2023 09:17:55 05/24/20 23 Cystoscopy- male completed Polo Robin MD [address] [place] [address],[address], [place], [address], [facility] 05/24/2023 23:02:14 05/24/20 23 Keflex post Cysto completed Vi Mitchell [facility] 05/24/2023 12:35:40 05/24/20 23 Bladder Scan completed Polo Robin MD [address] [place] [address],[address], [place], [address], [facility] 05/24/2023 12:15:49 12/18/19 23 Colonoscopy completed Polo Robin MD [address] [place] [address],[address], [place], [address], [facility] 05/24/2023 12:17:07 Prostatectomy completed Polo Robin MD [address] [place] [address],[address], [place], [address], [facility] 05/24/2023 12:18:08 tonsillectomy completed Polo Robin MD [address] [place] [address],[address], [place], [address], [facility] 05/24/2023 12:18:13 Appendectomy completed Polo Robin MD [address] [place] [address],[address], [place], [address], [facility] 05/24/2023 12:18:18 Orthopedic Surgery completed Polo Robin MD [address] [place] [address],[address], [place], [address], [facility] 05/24/2023 12:18:30 Hernia Repair completed Polo Robin MD [address] [place] [address],[address], [place], [address], [facility] 05/24/2023 12:18:34 Imaging Results None recorded. Procedure Notes None recorded. Medical Equipment None Reported. Allergies Allergen ID Allergen Name Allergen Category Reaction Reaction Severity Criticality Documentation Date Start Date Code Code System Note Provider Name and Address Organization Details Recorded Time 798410 Substance with sulfonami de structure and antibacte rial mechanism of action (substanc e) medicatio n rash Not available Not available 05/24/20232018 31498 8003 SNOMED Hyacinth hanson [facility] 5 12:25:07 722386 Iodinated contrast media (substanc e) medicatio n dyspnea Not available Not available 05/24/20232024 72020 2003 SNOMED Hyacinth hanson [facility] 5 12:24:51 917377 azithromy eriberto medicatio n itching Not available Not available 02/26/20252014 96456 RxNorm Hyacinth hanson [facility] 5 12:24:36 295318 diatrizoa te meglumine medicatio n other Not available Not available 02/26/20252006 3320 RxNorm Sever e chest press ure with contr ast in . CT with contr ast in 2022 misti ated with preme dicat ion Hyacinth hanson [facility] 5 12:24:41 434211 erythromy eriberto medicatio n hives Not available Not available 02/26/20252023 4053 RxNorm Hyacinth hanson, [facility] 5 12:24:44 303442 gadodiami de medicatio n Not available Not available low 02/26/20252023 19698 RxNorm Hyacinth hanson, [facility] 5 12:24:47 746661 mold extract environme nt Not available Not available Not available 02/26/20252006 37131 8 RxNorm unrec ogniz ed react ion (text : *Unkn own, code: 37852 005) (from exter nal sour e) Hyacinth hanson, [facility] 5 12:24:55 742619 bacitraci n / neomycin / polymyxin B medicatio n itching Not available Not available 02/26/20252006 58460 9 RxNorm Hyacinth hanson, [facility] 5 12:24:58 229427 sulfameth oxazole medicatio n hives Not available Not available 02/26/20252023 39818 RxNorm Hyacinth hanson, [facility] 5 12:25:10 412088 trimethop rim medicatio n hives Not available Not available 02/26/20252023 70882 RxNorm Hyacinth hanson, [facility] 5 12:25:14 Medications Name Sig Start [...] Updated DateTime 11/08/2023 177.8 cm 28 kg/m2 80339.51 g Polo Robin MD [address] [place] [address], [address] 11/08/2023 16:54:42 Date Recorded Body height Body mass index (BMI) Body weight Provider Name and Address Organization Details Last Updated DateTime 02/07/2024 177.8 cm 27.3 kg/m2 [address]85.[address] [facility] 02/07/2024 14:44:42 Date Recorded Body height Body mass index (BMI) Body weight Provider Name and Address Organization Details Last Updated DateTime 02/26/2025 177.8 cm 27.5 kg/m2 41566.[address] [facility] 02/26/2025 12:24:24 Date Recorded Body height Body mass index (BMI) Body weight Provider Name and Address Organization Details Last Updated DateTime 05/29/2024 177.8 cm 27 kg/m2 [address]18.[address] [facility] 05/29/2024 14:31:29 Date Recorded Body height Body mass index (BMI) Body weight Provider Name and Address Organization Details Last Updated DateTime 08/28/2024 177.8 cm 27 kg/m2 37398.37 g Polo Robin MD [address] [place] [address], [address] 08/28/2024 12:00:28 Social History Question Answer Notes LastModified by Organizat ion Details LastModified Time Tobacco Smoking Status Never Smoker Polo Robin MD [address] [place] [address],[address], [address], [facility] 05/24/2023 12:17:51 What Is Your Level Of Caffeine Consumption? Moderate Information not available 05/24/2023 Recreational Drug Use No Information not available 11/08/2023 What Was The Date Of Your Most Recent Tobacco Screening? 02/26/2025 [email or web address] Information not available 02/26/2025 Have You Ever [...] adjuvanted, quadrivalent, PF [address] [facility] 02/07/2024 14:44:45 COVID-19, mRNA, LNP-S, PF, 50 mcg/0.5 mL [address] [facility] 02/07/2024 14:44:46 RSV, recombinant, protein subunit RSVpreF, adjuvant reconstituted, 0.5 mL, PF 3 completed Donna hairston null, [facility] 05/29/2024 14:31:34 Influenza, adjuvanted, trivalent, PF 4 completed Not Available [facility] 02/26/2025 12:02:53 COVID-19, mRNA, LNP-S, PF, 50 mcg/0.5 mL 4 completed Not Available [facility] 02/26/2025 12:02:53 Influenza, adjuvanted, trivalent, PF 9 completed Polo Robin MD [address] [place] [address],[address], [place], [address], [facility] 05/24/2023 12:16:02 Influenza, adjuvanted, trivalent, PF 8 completed Polo Robin MD [address] [place] [address],[address], [place], [address], [facility] 05/24/2023 12:16:02 zoster recombinant 0 completed Polo Robin MD [address] [place] [address],[address], [place], [address], [facility] 05/24/2023 12:16:02 zoster recombinant 9 completed Polo Robin MD [address] [place] [address],[address], [place], [address], [facility] 05/24/2023 12:16:02 Influenza, adjuvanted, quadrivalent, PF 1 completed Polo Robin MD [address] [place] [address],[address], [place], [address], [facility] 05/24/2023 12:16:02 Influenza, adjuvanted, quadrivalent, PF 2 completed Polo Robin MD [address] [place] [address],[address], [place], [address], [facility] 05/24/2023 12:16:02 COVID-19, mRNA, LNP-S, PF, 30 mcg/0.3 mL dose 1 completed Polo Robin MD [address] [place] [address],[address], [place], [address], [facility] 05/24/2023 12:16:02 COVID-19, mRNA, LNP-S, PF, 30 mcg/0.3 mL dose 1 completed Polo Robin MD [address] [place] [address],[address], [place], [address], [facility] 05/24/2023 12:16:02 COVID-19, mRNA, LNP-S, PF, 30 mcg/0.3 mL dose 1 completed Polo Robin MD [address] [place] [address],[address], [place], [address], [facility] 05/24/2023 12:16:02 COVID-19, mRNA, LNP-S, PF, 30 mcg/0.3 mL dose, ryland-sucrose 2 completed Polo Robin MD [address] [place] [address],[address], [place], [address], [facility] 05/24/2023 12:16:02 COVID-19, mRNA, LNP-S, bivalent, PF, 30 mcg/0.3 mL dose 2 completed Polo Robin MD [address] [place] [address],[address], [place], [address], [facility] 05/24/2023 12:16:02 pneumococcal polysaccharide PPV23 4 completed Polo Robin MD [address] [place] [address],[address], [place], [address], [facility] 05/24/2023 12:16:02 Tdap 2 completed Polo Robin MD [address] [place] [address],[address], [place], [address], [facility] 05/24/2023 12:16:02 Pneumococcal conjugate PCV 13 5 completed Polo Robin MD [address] [place] [address],[address], [place], [address], [facility] 05/24/2023 12:16:02 zoster live 3 completed Polo Robin MD [address] [place] [address],[address], [place], [address], [facility] 05/24/2023 12:16:02 Influenza, high-dose, trivalent, PF 4 completed Polo Robin MD [address] [place] [address],[address], [place], [address], [facility] 05/24/2023 12:16:02 Influenza, high-dose, trivalent, PF 5 completed Polo Robin MD [address] [place] [address],[address], [place], [address], [facility] 05/24/2023 12:16:02 Influenza, high-dose, trivalent, PF 6 completed Polo Robin MD [address] [place] [address],[address], [place], [address], [facility] 05/24/2023 12:16:02 Influenza, high-dose, trivalent, PF 7 completed Polo Robin MD [address] [place] [address],[address], [place], [address], [facility] 05/24/2023 12:16:02 Influenza, split virus, trivalent, preservative 9 completed Polo Robin MD [address] [place] [address],[address], [place], [address], [facility] 05/24/2023 12:16:02 Influenza, split virus, trivalent, preservative 5 completed Polo Robin MD [address] [place] [address],[address], [place], [address], [facility] 05/24/2023 12:16:02 Past Encounters Encounter ID Performer Location Encounter Start Date Encounter Closed Date Diagnosis/Indication Diagnosis SNOMED-CT Code Diagnosis ICD10 Code Diagnosis Note [id number] MD JOSEPH [place] [address] [address] 05/24/2023 11:57:04 05/31/2023 16:13:16 Blood in urine [id number] R31.9 1. Gross hematuria- unable to assess bladder today due to BNC- recommend CT Urogram(laura rudd being assess for possible IV contrast allergy - 40 year ago)- plan to evaluate bladder - Cystoscopy with dilation of BNC Erectile dysfunction 860 366177 F52.21 3. 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 Bladder neck contractur e (BNC)- likely cause of incomplete bladder emptying (PVR = 150 mL)- plan Cystoscopy with dilation of Bladder neck contractur e with Optilume balloon(ri sks include bleeding, infection, recurrence , and difficulty with incontinen ce) [id number] Polo Robin MD _[facility] [address] [place] [address] 08/16/2023 09:06:41 08/18/2023 11:44:39 Acquired contracture of neck of urinary bladder [id number] N32.0 1. Bladder neck contractur e (BNC)- s/p Dilation of BNC (Optilume) - (07/27/23)- check UCx- voiding well- incomplete bladder emptying (PVR = 160 mL)- check Bladder scan at Follow-up Erectile dysfunction 860 545779 F52.21 4. Erectile dysfunctio n- due to prostate surgery- Viagra causes headaches- try Tadalafil 20 mg prn Malignant neoplasm of urinary bladder [id number] C67.9 2. Bladder cancer - Urothelial carcinoma - LG Ta (no cis)- s/p TUR-BT (07/27/23) - LG Ta (no CIS) - near Left UO- Follow-up in 3 months with Cystoscopy Malignant neoplasm of prostate [id number] C61 3. Prostate cancer - T2a No Mo - [place] 3+4 = 7- s/p RRP by Dr. Doherty (07/08/15) - negative margins(PS A has been detectable since surgery)- PSA (2.0) - stable- check PSA in April 2024 [id number] Polo Robin MD _[place] [address] [place] [address] 11/08/2023 16:11:34 11/16/2023 11:05:49 Acquired contracture of neck of urinary bladder 76771301 N32.0 3. Bladder neck contractur e (BNC)- s/p Dilation of BNC (Optilume) - (07/27/23)- voiding well- PVR = 32mL- check Bladder scan at Follow-up Malignant neoplasm of urinary bladder 237885965 C67.9 1. Bladder cancer - Urothelial carcinoma - LG Ta (no cis)- s/p TUR-BT (07/27/23) - LG Ta (no CIS) - near Left UO- Cystoscopy (11/08/23) - no tumors seen- Follow-up in 3 months with Cystoscopy Malignant neoplasm of prostate [id number] C61 2. Prostate cancer - T2a No Mo - [place] 3+4 = 7- s/p RRP by Dr. Doherty (07/08/15) - negative margins(PS A has been detectable since surgery)- PSA (0.38) - slight increase - monitor- check PSA in April 2024 Erectile dysfunction 860 147635 F52.21 4. Erectile dysfunctio n- due to prostate surgery- Viagra causes headaches- try Tadalafil 20 mg prn [id number] Polo Robin MD [facility] [address] [place] [address] 02/07/2024 14:21:44 02/16/2024 10:42:03 Malignant neoplasm of urinary bladder [id number] C67.9 1. Bladder cancer - Urothelial carcinoma - LG Ta (no cis)- s/p TUR-BT (07/27/23) - LG Ta (no CIS) - near Left UO- Cystoscopy (02/07/24) - no tumors seen- Follow-up in 3 months with Cystoscopy Malignant neoplasm of prostate 067735955 C61 2. Prostate cancer - T2a No Mo - [place] 3+4 = 7- s/p RRP by Dr. Doherty (07/08/15) - negative margins(PS A has been detectable since surgery)- PSA (0.24) - slight decrease - monitor- check PSA in July 2024 Acquired c ontracture of neck of urinary bladder [id number] N32.0 3. Bladder neck contractur e (BNC)- s/p Dilation of BNC (Optilume) - (07/27/23)- open BNC- voiding well - PVR = 34mL- check Bladder scan at Follow-up Erectile dysfunction 860 693184 F52.21 H/O Erectile dysfunctio n- due to prostate surgery- Viagra causes headaches- continue Tadalafil 20 mg prn [id number] Polo Robin MD [address] [place] [address] 05/29/2024 14:08:37 06/03/2024 16:14:05 Malignant neoplasm of urinary bladder [id number] C67.9 1. Bladder cancer - Urothelial carcinoma - LG Ta (no cis)- s/p TUR-BT (07/27/23) - LG Ta (no CIS) - near Left UO- Cystoscopy (05/29/24) - no tumors seen- Follow-up in 3 months with Cystoscopy Malignant neoplasm of prostate 324343682 C61 H/O Prostate cancer - T2a No Mo - [place] 3+4 = 7- s/p RRP by Dr. Doherty (07/08/15) - negative margins(PS A has been detectable since surgery)- PSA (0.24) - slight decrease - monitor- check PSA in August 2024 Acquired c ontracture of neck of urinary bladder 44218940 N32.0 3. Bladder neck contractur e (BNC)- s/p Dilation of BNC (Optilume) - (07/27/23)- open BNC- voiding well - PVR = 34mL- check Bladder scan at Follow-up Erectile dysfunction 860 382106 F52.21 H/O Erectile dysfunctio n- due to prostate surgery(Vi agra causes headaches) - continue Tadalafil 20 mg prn Lower urin chance tract symptoms due to benign prostatic hypertrophy [id number] 9101 N40.1 4. Slow stream- will try Cialis 5 mg daily(may not help give his prostate has been removed) [id number] Polo Robin MD _[place] [address] [place], [place] [address] 08/28/2024 11:36:17 08/30/2024 11:14:18 Malignant neoplasm of urinary bladder 686171002 C67.9 1. Bladder cancer - Urothelial carcinoma - LG Ta (no cis)- s/p TUR-BT (07/27/23) - LG Ta (no CIS) - near Left UO- Cystoscopy (08/28/24) - no tumors seen- Follow-up in 6 months with Cystoscopy Malignant neoplasm of prostate 554758656 C61 H/O Prostate cancer - T2a No Mo - [place] 3+4 = 7- s/p RRP by Dr. Doherty (07/08/15) - negative margins(PS A has been detectable since surgery)- PSA (0.36) - slight increase - monitor- check PSA in 6 months Acquired c ontracture of neck of urinary bladder 79677191 N32.0 3. Bladder neck contractur e (BNC)- s/p Dilation of BNC (Optilume) - (07/27/23)- open BNC- voiding well - PVR = 47mL- check Bladder scan at Follow-up Lower urin chance tract symptoms due to benign prostatic hypertrophy [id number] 9101 N40.1 4. Slow stream- continue Cialis 5 mg daily Erectile dysfunction 860 462291 F52.21 H/O Erectile dysfunctio n- due to prostate surgery(Vi agra causes headaches) - continue Tadalafil 20 mg prn [id number] Polo Robin MD [facility] [address] [place] [address] 02/26/2025 11:59:31 03/05/2025 09:24:37 Malignant neoplasm of urinary bladder 677702055 C67.9 1. Bladder cancer - Urothelial carcinoma - LG Ta (no cis)- s/p TUR-BT (07/27/23) - LG Ta (no CIS) - near Left UO- Cystoscopy (02/26/25) - no tumors seen- Follow-up in 6 months with Cystoscopy Malignant neoplasm of prostate 982911057 C61 H/O Prostate cancer - T2a No Mo - [place] 3+4 = 7- s/p RRP by Dr. Doherty (07/08/15) - negative margins(PS A has been detectable since surgery)- PSA (0.26) - slight decrease - monitor- check PSA in 6 months Acquired c ontracture of neck of urinary bladder 18233152 N32.0 3. Bladder neck contractur e (BNC)- s/p Dilation of BNC (Optilume) - (07/27/23)- open BNC- voiding well - PVR = 129 mL- check Bladder scan at Follow-up Lower urin chance tract symptoms due to benign prostatic hypertrophy [id number] 9101 N40.1 4. Slow stream- continue Cialis 5 mg daily Erectile dysfunction 860 109827 F52.21 H/O Erectile dysfunctio n- due to [...] AFTER 19 (MEDICARE REPLACEMENT/ ADVANTAGE - HMO) [id number] 1 Kapil Huizar [id number] Kapil Huizar 05/29/2024 1 [employer] (PPO) [id number] 1 Kapil Huizar [id number] Kapil Huizar Notes Date Note Type Note [...] cm tumor (Left floor) Polo Robin MD [address] [place] [address],[facility] [address], [place], [address], [facility] 11/09/2023 22:09:05 02/07/2024 text/html 73 yo male with history of Prostate cancer, paroxysmal A.fib (ASA 81 mg), hyperlipidemia, ASTRID, and migraine headaches, He has difficulty obtaining and maintaining erections. He tried Viagra (caused a headache). He has occasional leakage with sneeze / cough. - s/p TURP - (04/18/13)Prostate cancer - T2a No Mo - [place] 3+4 = 7- s/p RRP by Dr. [...] tumor (Left floor) Polo Robin MD [address] [facility],[address], [place], [address], [facility] 02/07/2024 18:32:08 05/29/2024 text/html 73 [...] cm tumor (Left floor) Polo Robin MD [address] [place] [address],[address], [place], [address], [facility] 05/30/2024 20:31:02 08/28/2024 text/html 74 yo [...] tumor (Left floor) Polo Robin MD [address] [facility],[address], [place], [address], [facility] 08/28/2024 13:59:05 02/26/2025 text/html 74 yo [...] tumor (Left floor) Polo Robin MD [address] [facility],[address], [place], [address], [facility] 02/26/2025 21:10:58
--- OUTSIDE RECORDS SUMMARY | 2025-03-12 00:40 | XMS_ITS | Continuity of Care Document ---
Author Organization [place] [facility] Address [address] [email or web address] [address] Care Team Providers Care Locksmith Apprentice Name Role Phone BEAU MATHEWS Primary Care Provider Assessment No assessment recorded. Plan of Treatment Reminders Order Date Submit Date Provider Last Modified By Organization Details Last Modified Time Details Appointments PSA 10 2024 11:00A [facility] Not available Not available Not available ESTABL ISHED 10 2024 11:20A M Polo Robin MD Not available Not available Not available Lab PSA, serum or plasma 2024 025 mmadrigalvale ro [facility], [address], [place], [address], 02/26/2025 12:36:22 PSA, total, serum or plasma 2024 025 eswinderman [facility], [address], [place], [address], 02/26/2025 13:06:04 urinal ysis, dipsti ck 2024 025 mmadrigalvale ro [facility], [address], [place], [address], 02/26/2025 12:36:23 Referral None record ed. Procedures cystos copy (PROC) 2024 025 eswinderman Not available 02/26/2025 13:06:38 Surgeries None record ed. Imaging None record ed. Medication Orders None record ed. Patient TargetsNo targets recorded. Patient InstructionsNo instructions recorded. Reason for Referral None Reported. Results Created Date Observation Date Name Description Value Unit Range Abnormal Flag Note LastModifiedBy Organization Detail LastModifiedTime 02/27/20 25 02/26/2025 PSA, serum or plasm a PSA 0.26ng /ml 0-4.0 NG/mL Not Available [facility] [address], [place], [address], 02/21/2025 16:23:46 02/27/20 25 02/26/2025 PSA, serum or plasm a PSA n 0-4.0 NG/mL Not Available [facility] [address], [place], [address], 02/21/2025 16:23:46 02/27/20 25 02/26/2025 urina lysis , dipst ick BLOOD Negati ve Not Available [facility] [address], [place], [address], 02/21/2025 16:23:46 02/27/20 25 02/26/2025 urina lysis , dipst ick BILIRUBIN Negati ve Not Available [facility] [address], [place], [address], 02/21/2025 16:23:46 02/27/20 25 02/26/2025 urina lysis , dipst ick UROBILINOGEN 0.2 mg/dL (Norm) Not Available [facility] [address], [place], [address], 02/21/2025 16:23:46 02/27/20 25 02/26/2025 urina lysis , dipst ick KETONES Negati ve Not Available [facility] [address], [place], [address], 02/21/2025 16:23:46 02/27/20 25 02/26/2025 urina lysis , dipst ick PROTEIN Negati ve Not Available [facility] [address], [place], [address], 02/21/2025 16:23:46 02/27/20 25 02/26/2025 urina lysis , dipst ick NITRITES Negati ve Not Available [facility] [address], [place], [address], 02/21/2025 16:23:46 02/27/20 25 02/26/2025 urina lysis , dipst ick GLUCOSE Negati ve Not Available [facility] [address], [place], [address], 02/21/2025 16:23:46 02/27/20 25 02/26/2025 urina lysis , dipst ick p.H. 5.5 Not Available [facility] [address], [place], [address], 02/21/2025 16:23:46 02/27/20 25 02/26/2025 urina lysis , dipst ick S.G. (Specific [place]) 1.010 Not Available [facility] [address], [place], [address], 02/21/2025 16:23:46 02/27/20 25 02/26/2025 urina lysis , dipst ick LEUKOCYTES Negati ve Not Available [facility] [address], [place], [address], 02/21/2025 16:23:46 Result Notes None recorded. Problems Name Problem SNOMED Code Status Onset Date Resolution Date Notes Provider Name and Address Organization Details Recorded Time Slowing of urinary stream 61368293 Active 2011 788.62 : SLOW STREAM Not Available [facility] 0 02:01:02 Prostate specific antigen above reference range 769430827 Active 2011 790.93 : ELEVATED PSA Not Available [facility] 02:01:02 Problem Notes None recorded. Procedures Surgical History Date Name Laterality Status Provider Name and Address Organization Details Recorded Time 02/27/20 25 Cystoscopy- male completed Polo Robin MD [address], [place], [address], [facility] 02/26/2025 21:09:46 02/27/20 25 Keflex post Cysto completed Miletzi Warren-Sana ero [facility] 02/21/2025 16:25:22 02/27/20 25 RADIOTELEPHONE TECHNICAL OPERATOR/blood draw completed Miletzi Warren-Sana ero [facility] 02/26/2025 12:36:13 02/27/20 25 [facility] 02/21/2025 16:25:05 02/27/20 25 Bladder Scan [facility] 02/26/2025 12:36:20 08/28/20 24 Cystoscopy- male completed Polo Robin MD [address], [place], [address], [facility] 08/28/2024 13:55:40 08/28/20 24 Keflex post Cysto [facility] 08/23/2024 12:31:26 08/28/20 24 RADIOTELEPHONE TECHNICAL OPERATOR/blood draw [facility] 08/28/2024 11:52:59 08/28/20 24 Urinalysis [facility]-S[facility] 08/28/2024 11:52:53 08/28/20 24 Bladder Scan completed Polo Robin MD [address] [place] [address],[address], [place], [address], [facility] 08/28/2024 12:06:06 05/29/20 24 Cystoscopy- male completed Polo Robin MD [address] [place] [address],[address], [place], [address], [facility] 05/30/2024 20:23:44 05/29/20 24 Keflex post Cysto completed Ciriloscarleti Warren-Sana ero [facility] 05/28/2024 12:06:26 05/29/20 24 Urinalysis completed Cirilojeanine Warren-Sana ero [facility] 05/28/2024 12:06:22 05/29/20 24 Bladder Scan [facility] 05/29/2024 14:38:44 02/07/20 24 Cystoscopy- male completed Polo Robin MD [address] [place] [address],[address], [place], [address], [facility] 02/07/2024 18:30:17 02/07/20 24 COMPLEX VISIT completed Polo Robin MD [address] [place] [address],[address], [place], [address], [facility] 02/07/2024 18:31:45 02/07/20 24 Keflex post Cysto completed Donna Warren-Sana ero [facility] 01/30/2024 12:06:28 02/07/20 24 RADIOTELEPHONE TECHNICAL OPERATOR/blood draw completed Nisha Lambert [facility] 02/07/2024 14:45:53 02/07/20 24 Bladder Scan completed Nisha Lambert [facility] 02/07/2024 14:48:36 11/08/19 24 Cystoscopy- male completed Polo Robin MD [address] [place] [address],[address], [place], [address], [place] [facility] 11/09/2023 22:08:26 11/08/19 24 Keflex post Cysto completed Polo Robin MD [address] [place] [address],[address], [place], [address], [place] [facility] 11/08/2023 16:42:20 11/08/19 24 Bladder Scan completed Polo Robin MD [address] [place] [address],[address], [place], [address], [facility] 11/08/2023 16:58:30 08/16/20 23 Bladder Scan completed Vi Mitchell [facility] 08/16/2023 09:17:55 05/24/20 23 Cystoscopy- male completed Polo Robin MD [address] [place] [address],[address], [place], [address], [facility] 05/24/2023 23:02:14 05/24/20 23 Keflex post Cysto completed Vi Estradaoza [facility] 05/24/2023 12:35:40 05/24/20 23 Bladder Scan completed Polo Robin MD [address] [place] [address],[address], [place], [address], [facility] 05/24/2023 12:15:49 12/18/19 23 Colonoscopy completed Polo Robin MD [address] [place] [address],[address], [place], [address], [facility] 05/24/2023 12:17:07 Prostatectomy completed Polo Robin MD [address] [place] [address],[address], [place], [address], [facility] 05/24/2023 12:18:08 tonsillectomy completed Polo Robin MD [address] [place] [address],[address], [place], [address], [facility] 05/24/2023 12:18:13 Appendectomy completed Polo Robin MD [address] [place] [address],[address], [place], [address], [facility] 05/24/2023 12:18:18 Orthopedic Surgery completed Polo Robin MD [address] [place] [address],[address], [place], [address], [facility] 05/24/2023 12:18:30 Hernia Repair completed Polo Robin MD [address] [place] [address],[address], [place], [address], [facility] 05/24/2023 12:18:34 Imaging Results None recorded. Procedure Notes None recorded. Medical Equipment None Reported. Allergies Allergen ID Allergen Name Allergen Category Reaction Reaction Severity Criticality Documentation Date Start Date Code Code System Note Provider Name and Address Organization Details Recorded Time 703681 Substance with sulfonami de structure and antibacte rial mechanism of action (substanc e) medicatio n rash Not available Not available 05/24/20232018 20671 8003 [facility] 12:[facility]07 415949 Iodinated contrast media (substanc e) medicatio n dyspnea Not available Not available 05/24/20232024 21417 2004 SNOMED Hyacinth hanson [facility] 5 12:24:51 187197 azithromy eriberto medicatio n itching Not available Not available 02/26/20252014 26042 RxNorm Hyacinth hanson, [facility] 5 12:24:36 472958 diatrizoa te meglumine medicatio n other Not available Not available 02/26/20252006 3320 RxNorm Sever e chest press ure with contr ast in . CT with contr ast in 2022 misti ated with preme dicat ion Hyacinth hanson [facility] 5 12:24:41 669678 erythromy eriberto medicatio n hives Not available Not available 02/26/20252023 4053 RxNorm Hyacinth hanson, [facility] 5 12:24:44 793232 gadodiami de medicatio n Not available Not available [facility] 02/26/20252023 66873 RxNorm Hyacinth hanson [facility] 5 12:24:47 629512 mold extract environme nt Not available Not available Not available 02/26/20252006 03548 8 RxNorm unrec ogniz ed react ion (text : *Unkn own, code: 83266 005) (from exter nal sourc e) Hyacinth hanson, [facility] 5 12:24:55 111097 bacitraci n / neomycin / polymyxin B medicatio n itching Not available Not available 02/26/20252006 01439 9 RxNorm Hyacinth hanson, [facility] 5 12:24:58 925761 sulfameth oxazole medicatio n hives Not available Not available 02/26/20252023 97427 RxNorm Hyacinth hanson [facility] 5 12:25:10 349261 trimethop rim medicatio n hives Not available Not available 02/26/20252023 57874 RxNorm Hyacinth Gurpreet hanson, [facility] 5 12:25:14 Medications Name Sig Start [...] Updated DateTime 02/26/2025 177.8 cm 27.5 kg/m2 59909.74 g Hyacinth Vázquez [facility] 02/26/2025 12:24:24 Social History Question Answer Notes LastModified by Organizat ion Details LastModified Time Tobacco Smoking Status Never Smoker Polo Robin MD [address] [address], [place], [address], [facility] 05/24/2023 12:17:51 What Is Your Level Of Caffeine Consumption? Moderate Information not available 05/24/2023 Recreational Drug Use No Information not available 11/08/2023 What Was The Date Of Your Most Recent Tobacco Screening? 02/26/2025 Information not available 02/26/2025 Have You Ever [...] Influenza, adjuvanted, quadrivalent, PF 3 [facility] 14:44:45 COVID-19, mRNA, LNP-S, PF, 50 mcg/0.5 mL 3 completed [facility] 02/07/2024 14:44:46 RSV, recombinant, protein subunit RSVpreF, adjuvant reconstituted, 0.5 mL, PF 3 completed [facility] 05/29/2024 14:31:34 Influenza, adjuvanted, trivalent, PF 4 completed Not Available [facility] 02/26/2025 12:02:53 COVID-19, mRNA, LNP-S, PF, 50 mcg/0.5 mL 4 completed Not Available [facility] 02/26/2025 12:02:53 Influenza, adjuvanted, trivalent, PF 9 completed Polo Robin MD [address] [place] [address],[address], [place], [address], [facility] 05/24/2023 12:16:02 Influenza, adjuvanted, trivalent, PF 8 completed Polo Robin MD [address] [place] [address],[address], [place], [address], [facility] 05/24/2023 12:16:02 zoster recombinant 0 completed Polo Robin MD [address] [place] [address],[address], [place], [address], [facility] 05/24/2023 12:16:02 zoster recombinant 9 completed Polo Robin MD [address] [place] [address],[address], [place], [address], [facility] 05/24/2023 12:16:02 Influenza, adjuvanted, quadrivalent, PF 1 completed Polo Robin MD [address] [place] [address],[address], [place], [address], [facility] 05/24/2023 12:16:02 Influenza, adjuvanted, quadrivalent, PF 2 completed Polo Robin MD [address] [place] [address],[address], [place], [address], [facility] 05/24/2023 12:16:02 COVID-19, mRNA, LNP-S, PF, 30 mcg/0.3 mL dose 1 completed Polo Robin MD [address] [place] [address],[address], [place], [address], [facility] 05/24/2023 12:16:02 COVID-19, mRNA, LNP-S, PF, 30 mcg/0.3 mL dose 1 completed Polo Robin MD [address] [place] [address],[address], [place], [address], [facility] 05/24/2023 12:16:02 COVID-19, mRNA, LNP-S, PF, 30 mcg/0.3 mL dose 1 completed Polo Robin MD [address] [place] [address],[address], [place], [address], [facility] 05/24/2023 12:16:02 COVID-19, mRNA, LNP-S, PF, 30 mcg/0.3 mL dose, ryland-sucrose 2 completed Polo Robin MD [address] [place] [address],[address], [place], [address], [facility] 05/24/2023 12:16:02 COVID-19, mRNA, LNP-S, bivalent, PF, 30 mcg/0.3 mL dose 2 completed Polo Robin MD [address] [place] [address],[address], [place], [address], [facility] 05/24/2023 12:16:02 pneumococcal polysaccharide PPV23 4 completed Polo Robin MD [address] [place] [address],[address], [place], [address], [facility] 05/24/2023 12:16:02 Tdap 2 completed Polo Robin MD [address] [place] [address],[address], [place], [address], [facility] 05/24/2023 12:16:02 Pneumococcal conjugate PCV 13 5 completed Polo Robin MD [address] [place] [address],[address], [place], [address], [facility] 05/24/2023 12:16:02 zoster live 3 completed Polo Robin MD [address] [place] [address],[address], [place], [address], [facility] 05/24/2023 12:16:02 Influenza, high-dose, trivalent, PF 4 completed Polo Robin MD [address] [place] [address],[address], [place], [address], [facility] 05/24/2023 12:16:02 Influenza, high-dose, trivalent, PF 5 completed Polo Robin MD [address] [place] [address],[address], [place], [address], [facility] 05/24/2023 12:16:02 Influenza, high-dose, trivalent, PF 6 completed Polo Robin MD [address] [place] [address],[address], [place], [address], [facility] 05/24/2023 12:16:02 Influenza, high-dose, trivalent, PF 7 completed Polo Robin MD [address] [place] [address],[address], [place], [address], [facility] 05/24/2023 12:16:02 Influenza, split virus, trivalent, preservative 9 completed Polo Robin MD [address] [place] [address],[address], [place], [address], [facility] 05/24/2023 12:16:02 Influenza, split virus, trivalent, preservative 5 completed Polo Robin MD [address] [place] [address],[address] [place] [address], [address], [facility] 05/24/2023 12:16:02 Past Encounters Encounter ID Performer Location Encounter Start Date Encounter Closed Date Diagnosis/Indication Diagnosis SNOMED-CT Code Diagnosis ICD10 Code Diagnosis Note [id number] Polo Robin MD [facility] [address] [place] [address] 02/26/2025 11:59:31 03/05/2025 09:24:37 Malignant neoplasm of urinary bladder 413720012 C67.9 1. Bladder cancer - Urothelial carcinoma - LG Ta (no cis)- s/p TUR-BT (07/27/23) - LG Ta (no CIS) - near Left UO- Cystoscopy (02/26/25) - no tumors seen- Follow-up in 6 months with Cystoscopy Malignant neoplasm of prostate 771347970 C61 H/O Prostate cancer - T2a No Mo - [place] 3+4 = 7- s/p RRP by Dr. Doherty (07/08/15) - negative margins(PS A has been detectable since surgery)- PSA (0.26) - slight decrease - monitor- check PSA in 6 months Acquired c ontracture of neck of urinary bladder 66349600 N32.0 3. Bladder neck contractur e (BNC)- s/p Dilation of BNC (Optilume) - (07/27/23)- open BNC- voiding well - PVR = 129 mL- check Bladder scan at Follow-up Lower urin chance tract symptoms due to benign prostatic hypertrophy 2615665285 9101 N40.1 4. Slow stream- continue Cialis 5 mg daily Erectile dysfunction 860 348078 F52.21 H/O Erectile dysfunctio n- due to prostate surgery(Vi agra causes headaches) - continue Tadalafil 20 mg prn Health Concerns Section Related Observation LastModified by Organization Detai ls LastModified Time None Recorded Concern Status LastModified by Organization Details LastModified Time None Recorded Payers Encounter Date Sequence Insurance Name Policy Number Policy Kramer Covered Member ID Kramer Member ID Guarantor Name 02/26/2025 1 [employer] - DOS ON OR AFTER 19 (MEDICARE REPLACEMENT/ ADVANTAGE - HMO) [id number] Kapil Huizar [id number] Kapil Huizar Notes Date Note Type Note Provider Name and Address Organization Details Recorded Time 02/26/2025 text/html 74 yo male with history of Prostate cancer, paroxysmal A.fib (ASA 81 mg), hyperlipidemia, ASTRID, and migraine headaches, He has difficulty obtaining and maintaining erections. He tried Viagra (caused a headache). He has occasional leakage with sneeze / cough. - s/p TURP - (04/18/13)Prostate cancer - T2a No Mo - [place] 3+4 = 7- s/p RRP by Dr. Doherty (07/08/15) - negative margins(PSA has been detectable since surgery) Bladder cancer - LG Ta urothelial carcinoma (non-invasive) - no CIS- s/p TUR-BT and Dilation (Optilume) of BNC - (07/27/23) - by Left UO 05/29/24 [...] cm tumor (Left floor) Polo Robin MD [address], [place], [address], [place] [facility] 02/26/2025 21:10:58
--- OUTSIDE RECORDS SUMMARY | 2025-03-12 00:41 | XMS_ITS | Clinical Summary ---
Author Organization [facility] Address [address] [place] [address] Care Team Providers Care Private Investigator Surveillance Name Role Phone KeithDeepti realtenzin KAPLAN Primary Care Provider [phone] Praag Romero MD Unavailable [phone] Nurses, Advanced Heart Failure Unavailable + Allergies Active Allergy Reactions Criticality Noted Date Comments Azithromycin Itching 02/02/2015 Diatrizoate Allergen Other - Describe In Comment Field 07/19/2007 Severe chest pressure with contrast in 1980s. CT with contrast in 2022 tolerated with premedication Dust Mites *Unknown 11/23/2006 Erythromycin Base Hives 07/16/2024 Feathers Runny Nose 07/26/2023 Iodinated Contrast Media Dyspnea 11/19/2024 Mold Extracts *Unknown 04/06/2007 Nsuilwbi-Gkrktkxego-Ahfp myxin Itching 11/23/2006 Sulfa (Sulfonamide Antibiotics) Rash [...] Description 02/28/2025 9:55 AM CDT Office Visit [facility] [address] [place] [address] Huber Castillo MD Ear Problem (Possible RIGHT ear infection/Having pain x 1 day) 02/28/2025 Travel 02/26/2025 Orders Only [facility] Scanner 1 scan: (1-Ord) [facility], CYSTOSCOPY, 02/26/2025 02/20/2025 3:30 PM CDT Ancillary Procedure [facility] [address] [facility] [address] [place] [address] 02/20/2025 Travel 02/18/2025 Transcribe Orders [facility] [place] [phone] Chance Sheth MD 01/31/2025 Telephone [facility] [address] [place] [address] Kilo Daniels MD Questions (Back Surgery) 01/16/2025 1:00 PM CDT Phone Office Visit [facility] [address] [facility] [address] [place] [address] Kingsley Nguyen MD 01/16/2025 Travel 12/31/2024 7:40 AM CDT Office Visit [facility] at [facility] [address] [place] [address] Kilo Daniels MD Procedure (Left L5-S1 TFESI) 12/16/2024 11:20 AM CDT Office Visit [facility] [address] [place] [address] Kilo Daniels MD Musculoskeletal Problem (Follow up [...] Cancer Father lung Heart Disease Father 3 NH's 1st in mid 50's Other Father colon [...] on file Legal Sex 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 Gender Identity Not on file Sexual Orientation [...] Body Mass Index 28.87 10/02/2024 11:41 AM DISABILITY EXAMINER Plan of Treatment Upcoming Encounters Date Type Department Care Team (Latest Contact Info) Description 03/13/2025 2:05 PM CDT Office Visit [facility] [address] [place] [address] JayroNatalia olsonDO [address] [place] [address] 03/20/2025 12:45 PM CDT Hospital Encounter [address] [address] Chance Sheth MD [address] [place], [place] [id number] 03/20/2025 12:45 PM CDT - 03/20/2025 5:07 PM CDT Surgery [address] [address] Chance Sheth MD [address] [place] [address] PSF - Posterior Spine Fusion Levels: L4 [...] Care Plan Autogenerated Problem No 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 Blood BLOOD SPECIMEN / Unknown Venipuncture / Unknown 01/31/2017 10:52 AM CDT 01/31/2017 10:53 AM CDT Narrative [facility] - 01/31/2017 5:52 PM CDT Antibodies to HCV not detected; does not exclude the possibility of exposure to HCV. us Umberto Mendoza MD SEND OUTS Final Re sult [facility] [address] [place] [address], [place] from Last 3 Months or Most Recently Relevant to Health Maintenance Additional Health Concerns Active Problems Noted Date Diagnosed Date Autogenerated Problem 02/25/2025 Insurance [facility] MEDICARE ADVANTAGE MR MEDICARE PART A HB [...] 5:42 AM 07/08/2015 12:23 PM Care Teams Private Investigator Surveillance Relationship Specialty Start Date End Date Natalia Martin [place] [address] PCP - General Family Practice 07/25/23 Parag Romero MD [address] [phone] Cardiovascular Disease 10/02/24 Nurses, Advanced Heart Failure [address], [place] [id number] Advanced Heart Failure/Transplant Card 10/02/24
== END 2025-03-11 09:55 | disposition home or self-care (01) ==
PROVIDERS: PCP Family Medicine; Visit Provider Otolaryngology
DX: H92.10 Otorrhea, unspecified ear (principal)
CPT/HCPCS: 70480